=== PATIENT | female | born 1960 | race Caucasian/White ===

== ENCOUNTER 2020-01-30 10:19 | Outpatient (CLI) | payer OTHER, SELFPAY ==
[2020-01-30 11:03] LABS: Alanine Aminotransferase 32 U/L (4-35); Alkaline Phosphatase 85 U/L (38-126); Anion Gap 11.8 mmol/L (7-16); Aspartate Amino Transferase 28 U/L (14-36); Bilirubin,Total 0.5 mg/dL (0.2-1.3); Blood Urea Nitrogen 25 mg/dL (7-17); Calcium 9.1 mg/dL (8.4-10.2); Carbon Dioxide 27 mmol/L (22-30); Chloride 105 mmol/L (98-107); Cholesterol 167 mg/dL (0-200); Estimated Glomerular Filt Rate > 60; Glucose 123 mg/dL (65-105); HDL Direct 35 mg/dL; Potassium 3.8 mmol/L (3.4-5.0); Sodium 140 mmol/L (137-145); Triglycerides 132 mg/dL (<150)
[2020-01-30 11:13] LABS: LDL Cholesterol Direct 106 mg/dL
[2020-01-30 11:25] LABS: Hemoglobin A1C 5.7 % (<5.7)
== END 2020-01-30 10:20 | disposition home or self-care (01) ==
PROVIDERS: PCP Family Medicine Adolescent Medicine; Visit Provider Physician Assistant
DX: E11.9 Type 2 diabetes mellitus without complications (principal); I10 Essential (primary) hypertension; E78.1 Pure hyperglyceridemia
CPT/HCPCS: 36415; 80053; 80061; 83036

== ENCOUNTER 2020-03-15 02:17 | Outpatient (CLI) | payer OTHER, SELFPAY ==
[2020-03-15 17:02] LABS: SARS-CoV-2 RNA PCR Negative
== END 2020-03-15 02:18 | disposition home or self-care (01) ==
LOC: ANHCOVIDDT 02:17
PROVIDERS: PCP Family Medicine Adolescent Medicine; Visit Provider Internal Medicine Gastroenterology
DX: Z01.812 Encounter for preprocedural laboratory examination (principal); Z20.828 Contact with and (suspected) exposure to other viral communicable diseases
CPT/HCPCS: 87635; C9803; U0003

== ENCOUNTER 2020-03-17 00:36 | Day surgery (SDC) | payer OTHER, SELFPAY ==
[2020-03-07 13:47] VITALS: BMI 39.5
[2020-03-17 07:54] VITALS: BP 137/82; PULSE 101; RESP 16; TEMP 36.7; O2SAT 101; BMI 38.8
[2020-03-17 08:08] LABS: Glucose Point of Care 114 (65-105)
[2020-03-17] MEDS: LACTATED RINGERS 1,000 ML 150 ML IV CONT (08:19)
--- NOTE | 2020-03-17 08:21 | WPDANESEPPF ---
Anes - Initial Pre Proc Eval Procedure: Operation Date: 03/17/20 08:30 Proposed Procedures p Screening Colonoscopy - Aftab Jiang DO Date/Time: 03/17/20 08:21 Surgeon: Aftab Jiang DO Pre Op Diagnosis: Neoplasm Screening Patient Data Age: 60 Gender: F Height: 1.63 m Weight: 102.7 kg Last Vital Signs Temp 36.7 C 03/17/20 07:54 Pulse 101 H 03/17/20 07:54 Resp 16 03/17/20 07:54 BP 137/82 03/17/20 07:54 Pulse Ox 101 H 03/17/20 07:54 Allergies Allergy/AdvReac Type Severity Reaction Status Date / Time No Known Allergies Allergy Unverified 03/17/20 07:47 Home Medications Medication Instructions Recorded Confirmed Type lisinopril-hydrochlorothiazide 0.5 tablet PO DAILY 07/29/19 03/17/20 History metformin 500 mg PO TID 07/29/19 03/17/20 History anastrozole 1 mg PO DAILY 03/07/20 03/07/20 History simvastatin 10 mg PO HS 03/17/20 03/17/20 History Laboratory Tests 03/17/20 08:00 POC Capillary Glucose 114 mg/dl H mg/dl (65-105) Patient hx anesthesia problems: none Family hx anesthesia problems: none PMFSH Past Medical History Medical History (Updated 03/17/20 @ 08:23 by Nehemiah Shultz MD) Cancer Ovarian CA Diabetes Endometriosis HTN (hypertension) Hypercholesterolemia Obesity ROSENDA (obstructive sleep apnea) Family History Family History (Updated 05/06/14 @ 14:02 by DOCTOR UNKNOWN) Father Hypertension Mother Hypertension Other Family history of cardiovascular disease Social History Social History Smoking status: Never smoker Second hand tobacco smoke exposure: No Alcohol intake: current Substance use: never Substance use type: does not use Living arrangements: with family Additional living arrangements comments: Spouse Gender identity (if verbalized by the patient): Female Spiritual care concerns: No Anes - Eval Final PreProcedure Day of Procedure 03/17/20 08:21 Patient weight: obese Heart: regular rate and rhythm Lungs: clear to auscultation and normal air movement Airway: Mallampati scale class II Neurological: alert and oriented Last oral intake: >/= 8 hours ASA classification: III Emergent: no Anesthetic plan: proceed Anesthesia type and monitoring: general GIVS Informed Consent: The patient's anesthetic plan and its attendant risks and benefits were discussed with the patient/family/POA. Questions were solicited and answers provided to the satisfaction of the patient/family/POA.
--- NOTE | 2020-03-17 08:47 | PM.IMHP ---
H&P: HPI History of Present Illness Date/Time: 03/17/20 08:47 Chief complaint: Neoplasm Screening Narrative: Reason for visit is colonoscopy. Impression: Your very pleasant lady is here for screening colonoscopy. She has a history of colon polyps. History of ovarian cancer status post surgery, radiation therapy and chemotherapy. HTN. HLD. Diabetes mellitus. ROSENDA. Neuropathy. Recommendation: Colonoscopy. History: This very pleasant lady has a history of colon polyps. Review of systems essentially unremarkable. She is here for screening and surveillance colonoscopy. Physical examination: General: very pleasant patient in no acute distress. HEENT: Head was normocephalic sclerae is clear mouth without masses neck was supple. Heart: Rate rhythm regular without S3 or S4. Lungs: CTA. Abdomen: Soft with no guarding or rigidity. Bowel sounds were active. Neurologic: Cranial nerves 2 through 12 intact. No focal defects. No clonus. Musculoskeletal system: Revealed no joint tenderness or swelling no muscle atrophy. Extremities: Reveal no significant edema. Skin: Warm and dry with normal turgor. Mental status: intact. Patient is alert and oriented. Review of Systems Review of Systems: All systems reviewed & are unremarkable except as noted in HPI and below PMFSH Past Medical History Medical History (Updated 03/17/20 @ 08:23 by Nehemiah Shultz MD) Cancer Ovarian CA Diabetes Endometriosis HTN (hypertension) Hypercholesterolemia Obesity ROSENDA (obstructive sleep apnea) Family History Family History (Updated 05/06/14 @ 14:02 by DOCTOR UNKNOWN) Father Hypertension Mother Hypertension Other Family history of cardiovascular disease Social History Social History Smoking status: Never smoker Second hand tobacco smoke exposure: No Alcohol intake: current Substance use: never Substance use type: does not use Living arrangements: with family Additional living arrangements comments: Spouse Gender identity (if verbalized by the patient): Female Spiritual care concerns: No Meds Home Medications and Allergies Home Medications Medication Instructions Recorded Confirmed Type lisinopril-hydrochlorothiazide 0.5 tablet PO DAILY 07/29/19 03/17/20 History metformin 500 mg PO TID 07/29/19 03/17/20 History anastrozole 1 mg PO DAILY 03/07/20 03/07/20 History simvastatin 10 mg PO HS 03/17/20 03/17/20 History Allergies Allergy/AdvReac Type Severity Reaction Status Date / Time No Known Allergies Allergy Unverified 03/17/20 07:47 Vital Signs Vital Signs - 24 hr 03/17/20 07:54 Temperature 36.7 C Pulse Rate 101 H Respiratory Rate 16 Blood Pressure 137/82 Pulse Oximetry 101 H
[2020-03-17 09:22] VITALS: BP 117/72; PULSE 85; RESP 16; O2SAT 96
[2020-03-17 09:32] VITALS: BP 113/78; PULSE 75; RESP 18; O2SAT 97
[2020-03-17 09:42] VITALS: BP 115/80; PULSE 77; RESP 20; O2SAT 98
== END 2020-03-17 09:53 | disposition home or self-care (01) ==
PROVIDERS: PCP Family Medicine Adolescent Medicine; Visit Provider Internal Medicine Gastroenterology
PROC: 0DJD8ZZ Inspection of Lower Intestinal Tract, Via Natural or Artificial Opening Endoscopic (ICD-10-PCS; CPT 45378; principal; 2020-03-17 08:30)
DX: Z12.11 Encounter for screening for malignant neoplasm of colon (principal); K64.8 Other hemorrhoids; Z86.010 Personal history of colon polyps; I10 Essential (primary) hypertension; E78.00 Pure hypercholesterolemia, unspecified; E11.9 Type 2 diabetes mellitus without complications; G47.33 Obstructive sleep apnea (adult) (pediatric); Z85.43 Personal history of malignant neoplasm of ovary; E66.9 Obesity, unspecified; Z68.38 Body mass index [BMI] 38.0-38.9, adult; Z79.84 Long term (current) use of oral hypoglycemic drugs
CPT/HCPCS: 45378; J2704; J7120

== ENCOUNTER 2020-05-18 16:43 | Outpatient (CLI) | payer OTHER, SELFPAY ==
[2020-05-18 17:16] LABS: Alanine Aminotransferase 51 U/L (4-35); Cholesterol 183 mg/dL (0-200); HDL Direct 37 mg/dL; Triglycerides 210 mg/dL (<150)
[2020-05-18 17:27] LABS: LDL Cholesterol Direct 125 mg/dL
== END 2020-05-18 16:44 | disposition home or self-care (01) ==
LOC: ANHLAB 16:45
PROVIDERS: PCP Family Medicine Adolescent Medicine; Visit Provider Physician Assistant
DX: E11.9 Type 2 diabetes mellitus without complications (principal); Z79.899 Other long term (current) drug therapy
CPT/HCPCS: 36415; 80061; 84460

== ENCOUNTER 2020-06-22 15:07 | Outpatient (CLI) | payer OTHER, SELFPAY ==
--- NOTE | ~2020-06-22 | MM_ITS ---
EXAMINATION: MM screening [facility] HISTORY: Screening mammogram TECHNIQUE: Craniocaudal and mediolateral oblique 3-D tomosynthesis images were obtained and synthetic 2-D images were generated. CAD analysis was submitted and interpreted. COMPARISON: 05/21/2019, 06/13/2017, 07/06/2015 BREAST PARENCHYMAL COMPOSITION: The breasts are heterogeneously dense, which may obscure small masses . FINDINGS: There is no evidence of suspicious mass, calcification, or architectural distortion to sugg est malignancy in either breast. There has been no suspicious interval change. IMPRESSION: 1. No mammographic evidence of malignancy. 2. Recommend routine screening mammography in one year. BI-RADS Category 1: Negative Reviewed, dictated and finalized at location A. AISAL ANALYST
== END 2020-06-22 15:08 | disposition home or self-care (01) ==
LOC: ANHIMG 15:09
PROVIDERS: PCP Family Medicine Adolescent Medicine; Visit Provider Physician Assistant
DX: Z12.31 Encounter for screening mammogram for malignant neoplasm of breast (principal)
CPT/HCPCS: 77063; 77067

== ENCOUNTER 2020-09-15 15:41 | Outpatient (RCR) | payer OTHER, SELFPAY ==
[2020-09-18 03:22] LABS: CA-125 9 U/mL (<35)
== END 2020-12-14 23:59 | disposition home or self-care (01) ==
LOC: ANHLAB 15:41
PROVIDERS: PCP Family Medicine Adolescent Medicine
DX: C56.9 Malignant neoplasm of unspecified ovary (principal)
CPT/HCPCS: 36415; 86304

== ENCOUNTER 2021-01-07 09:20 | Outpatient (RCR) | payer OTHER, SELFPAY ==
[2021-01-10 21:12] LABS: CA-125 10 U/mL (<35)
== END 2021-04-07 23:59 | disposition home or self-care (01) ==
LOC: ANHLAB 09:20
PROVIDERS: PCP Family Medicine Adolescent Medicine
DX: C56.9 Malignant neoplasm of unspecified ovary (principal)
CPT/HCPCS: 36415; 86304

== ENCOUNTER 2021-04-08 09:24 | Outpatient (CLI) | payer OTHER, SELFPAY ==
[2021-04-08 10:45] LABS: Hemoglobin A1C 6.9 % (<5.7)
[2021-04-08 10:46] LABS: Alanine Aminotransferase 64 U/L (4-35); Albumin Level 4.4 g/dL (3.5-5.1); Alkaline Phosphatase 66 U/L (38-126); Anion Gap 8 mmol/L (8-16); Aspartate Amino Transferase 54 U/L (14-36); Bilirubin,Total 0.6 mg/dL (0.2-1.3); Blood Urea Nitrogen 23 mg/dL (7-17); Carbon Dioxide 29 mmol/L (22-30); Chloride 104 mmol/L (98-107); Cholesterol 129 mg/dL (0-200); Estimated Glomerular Filt Rate > 60; Glucose 141 mg/dL (65-110); HDL Direct 37 mg/dL; Potassium 4.3 mmol/L (3.4-5.0); Sodium 141 mmol/L (137-145); Triglycerides 186 mg/dL (<150)
[2021-04-08 10:48] LABS: LDL Cholesterol Direct 67 mg/dL
== END 2021-04-08 09:25 | disposition home or self-care (01) ==
PROVIDERS: PCP Family Medicine Adolescent Medicine; Visit Provider Physician Assistant
DX: E11.9 Type 2 diabetes mellitus without complications (principal); I10 Essential (primary) hypertension
CPT/HCPCS: 36415; 80053; 80061; 83036

== ENCOUNTER 2021-12-06 19:16 | Observation (INO) | payer OTHER, SELFPAY ==
--- NOTE | ~2021-12-06 | XR_ITS ---
EXAMINATION: XR retrograde pyelo w/stent RT DATE: 12/07/2021 12:43 INDICATION: Right internal ureteral stent placement TECHNIQUE: Fluoroscopic images from a right internal ureteral stent placement are submitted for carmela courtney 43 seconds of fluoroscopy time. 6 fluoroscopic images FINDINGS: There is a right double-J internal ureteral stent projecting in expected position, with proximal [place] loop at the level of the renal pelvis and distal loop in the pelvis within the bladder lumen. IMPRESSION: 1. Right internal ureteral stent placement. Please refer to real-time procedural findings for aimee verduzco. Reviewed, dictated and finalized at location A. IMPRESSION: 1. Right internal ureteral stent placement. Please refer to real-time procedu ral findings for details.
--- NOTE | ~2021-12-06 | XR_ITS ---
XR abdomen/kub 1V 12/07/2021 00:02 Indication: Urolithiasis Procedure: KUB Comparison: CT dated 12/06/2021 Findings: There is a calcification in the right pelvis, suspicious for distal ureteral stone. There a re cholecystectomy clips. There are multiple calcifications adjacent to the cholecystectomy clips, mo st likely dropped stones. Bowel gas pattern is nonobstructive. No acute osseous abnormality. There ar e surgical clips in the pelvis as well. Lung bases unremarkable. Impression: 1: Probable distal right ureteral stone. 2: Probable dropped stones adjacent to cholecystectomy clips. Reviewed, dictated and finalized at location A. Impression: 1: Probable distal right ureteral stone. 2: Probable dropped stones adjacent to cholecystectomy clips.
--- NOTE | ~2021-12-06 | CT_ITS ---
EXAMINATION: CT abdomen pelvis wo con DATE: 12/06/2021 21:14 INDICATION: Flank pain and hematuria TECHNIQUE: Computed tomography (CT) of the abdomen and pelvis was performed without intravenous contr ast. The dose-length product (DLP) was 1275.66 mGy-cm. Automated exposure control and iterative recon struction technique were employed. COMPARISON: 05/07/2019 FINDINGS: Minimal dependent atelectasis is present in the lung bases. The heart size is normal. There is a small sliding hiatal hernia. The liver is diffusely low in attenuation when compared with the s pleen, consistent with hepatic steatosis. There are chronic cysts of the spleen. The gallbladder is s urgically absent. The pancreas and adrenal glands are normal. There are multiple stones of the right distal ureter which measure up to 7 mm. There is moderate right hydroureteronephrosis. There are cyst s of the kidneys. No pathologically enlarged abdominal or pelvic lymph nodes are identified. There is no free intraperitoneal gas or evidence of bowel obstruction. A small bowel surgical anastomosis is noted in the left mid abdomen. There is mild lumbar spondylosis. There has been interval resection of the previously described abdominal wall masses. IMPRESSION: 1. Multiple stones of the right distal ureter causing moderate right hydroureteronephrosis. 2. Diffuse hepatic steatosis. Reviewed, dictated and finalized at location F. IMPRESSION: 1. Multiple stones of the right distal ureter causing moderate right hydrourete ronephrosis. 2. Diffuse hepatic steatosis.
[2021-12-06 19:26] VITALS: BP 146/97; PULSE 93; RESP 20; TEMP 36.1; O2SAT 98
[2021-12-06 20:04] LABS: Basophils Percent Auto 0.3 % (0.2-1.2); Hemoglobin 14.2 g/dL (12.0-15.0); Immature Granulocyte Absolute 0.04 K/mm3 (0.00-0.031); Immature Granulocyte Percent A 0.5 % (0-0.5); Lymphocytes Absolute Auto 0.75 K/mm3 (0.9-3.2); Lymphocytes Percent Auto 9.9 % (18.3-44.2); Mean Corpuscular HGB Conc 32.3 g/dl (32-36); Mean Corpuscular Hemoglobin 28.6 pg (26-34); Mean Corpuscular Volume 88.5 fl (80-100); Mean Platelet Volume 9.9 fl (7.4-10.4); Monocytes Absolute Auto 0.2 K/mm3 (0.1-0.6); Monocytes Percent Auto 2.1 % (2.6-8.5); Neutrophils Absolute Auto 6.6 K/mm3 (1.3-6.7); Neutrophils Percent Auto 87.2 % (45.5-73.1); Platelet Count Result 175 k/mm3 (150-375); Red Blood Count 4.97 M/mm3 (4.2-5.4); Red Cell Distribution Width 13.3 % (11.5-14.5); White Blood Count 7.6 K/mm3 (4.5-10.0)
[2021-12-06 20:17] LABS: Alanine Aminotransferase 91 U/L (6-35); Albumin Level 4.6 g/dL (3.5-5.1); Alkaline Phosphatase 96 U/L (38-126); Anion Gap 9 mmol/L (8-16); Aspartate Amino Transferase 94 U/L (14-36); Bilirubin,Total 0.8 mg/dL (0.2-1.3); Blood Urea Nitrogen 27 mg/dL (7-17); Calcium 9.4 mg/dL (8.4-10.2); Carbon Dioxide 27 mmol/L (22-30); Chloride 102 mmol/L (98-107); Estimated CRCL calculation 40 ml/min; Estimated Glomerular Filt Rate 51; Glucose 236 mg/dL (65-110); Potassium 4.3 mmol/L (3.4-5.0); Sodium 138 mmol/L (137-145)
--- NOTE | 2021-12-06 21:06 | ED.FEMALEGU ---
HPI - Female Genitourinary General Chief complaint: Urogenital-Female Stated complaint: flank pain Time Seen by Provider: 12/06/21 20:52 Source: patient Mode of arrival: ambulatory Limitations: no limitations History of Present Illness HPI Narrative: This is a 61 year old female that presents to the ER for right flank pain noted today. Associated with nausea, vomiting and hematuria. Does report some urinary discomfort. Denies fevers. Related Data Home Medications Medication Instructions Recorded Confirmed lisinopril 20 0.5 tablet PO DAILY 07/29/19 03/17/20 mg-hydrochlorothiazide 12.5 mg tablet metformin 500 mg tablet 500 mg PO TID 07/29/19 03/17/20 anastrozole 1 mg tablet 1 mg PO DAILY 03/07/20 03/07/20 simvastatin 10 mg tablet 10 mg PO HS 03/17/20 03/17/20 Allergies Allergy/AdvReac Type Severity Reaction Status Date / Time No Known Allergies Allergy Unverified 03/17/20 07:47 Review of Systems Review of Systems: CONSTITUTIONAL: Denies fever GASTROINTESTINAL: Reports abdominal pain, nausea, vomiting GENITOURINARY: Reports dysuria and hematuria. All systems reviewed & are unremarkable except as noted in HPI and below PMFSH Past Medical History Medical History (Updated 12/07/21 @ 00:10 by Noris Dumont PA-C) Cancer Ovarian CA Diabetes Endometriosis HTN (hypertension) Hypercholesterolemia Obesity ROSENDA (obstructive sleep apnea) Family History Family History (Updated 05/06/14 @ 14:02 by DOCTOR UNKNOWN) Father Hypertension Mother Hypertension Other Family history of cardiovascular disease Social History Social History Smoking status: Never smoker Second hand tobacco smoke exposure: No Alcohol intake: current Substance use: never Substance use type: does not use Additional living arrangements comments: Spouse Gender identity (if verbalized by the patient): Female Spiritual care concerns: No Exam Narrative: GENERAL: Well-appearing, well-nourished, and in no acute distress. HEAD: Normocephalic, atraumatic. EYES: EOMI. CHEST: Clear to auscultation. No respiratory distress. No wheezes rales or rhonchi HEART: Regular rate and rhythm. No murmur heard. Normal peripheral pulses. ABDOMEN: Soft, nontender, nondistended, normal active bowel sounds. No CVA tenderness EXTREMITIES: Normal range of motion. No edema. SKIN: Warm, dry, no rash. NEURO: No focal deficits. Alert and oriented x3. PSYCH: Normal mood and affect Course Consultations Consultation #1: Spoke with Dr. Cary about patient and workup. Recommends admission for further evaluation and management. Date: 12/06/21 Time: 11:45 Vital Signs Vital signs: Vital Signs Temperature 97 F L 12/06/21 19:26 Pulse Rate 93 12/06/21 19:26 Respiratory Rate 20 12/06/21 19:26 Blood Pressure 146/97 H 12/06/21 19:26 Pulse Oximetry 98 12/06/21 19:26 Oxygen Delivery Room Air 12/06/21 19:26 Temperature 97 F L 12/06/21 19:26 Pulse Rate 71 12/06/21 22:01 Respiratory Rate 18 12/06/21 22:01 Blood Pressure 134/73 12/06/21 22:01 Pulse Oximetry 94 12/06/21 22:48 Oxygen Delivery Nasal Cannula 12/06/21 22:48 Oxygen Flow Rate 2 12/06/21 22:48 MDM - Female Genitourinary MDM Narrative Medical decision making narrative: Patient presents to the emergency department for right flank pain present today. She is afebrile and nontoxic-appearing. Her vitals are stable. CBC without leukocytosis. Metabolic panel with mild elevation in creatinine to 1.1. UA is nitrate positive with 11-20 red blood cells, but no white blood cells. This will be sent for culture. Patient started on Rocephin. Lactic acid is normal. CT scan of the abdomen and pelvis shows multiple stones in the distal right ureter. Spoke with Dr. Cary about patient and workup. Recommends admission for further evaluation and management. Patient did have oxygen desaturation into the low 90s after receiving IV morphine.
[2021-12-06 21:55] LABS: Appearance Urine Cloudy (Clear); Bilirubin Urine 1+ (Negative); Blood Urine 3+ (Negative); Color Urine Yellow (Yellow); Glucose Urine UA 2+ mg/dL (Negative); Ketones Urine 1+ mg/dL (Negative); Leukocyte Esterase Ur Trace LEU/UL (Negative); Nitrate Urine Positive (Negative); Protein Urine 2+ mg/dL (Negative); Specific Grav Ur >= 1.030 (1.001-1.035); pH Urine 5.5 (5.0-9.0)
[2021-12-06 22:01] VITALS: BP 134/73; PULSE 71; RESP 18; O2SAT 95
[2021-12-06 22:01] LABS: Add Urine Microscopic? YES
[2021-12-06] MEDS: ONDANSETRON INJ 4 MG/2 ML VIAL IV PUSH (22:02)
[2021-12-06 22:03] LABS: Squamous Epithelial Cell Urine Few /hpf (Few); WBC Urine 0-3 /hpf (0-3)
[2021-12-06] MEDS: MORPHINE SULFATE (*CRX) 4 MG/ML INJ IV PUSH (22:03)
[2021-12-06 22:04] LABS: Uric Acid Crystals Urine Present /hpf
[2021-12-06 22:05] LABS: Bacteria Urine 2+ /hpf
[2021-12-06] MEDS: SODIUM CHLORIDE 0.9% IV 500 ML 999 ML IV CONT (22:12)
[2021-12-06 22:35] LABS: Lactic Acid Reflex 1.5 mmol/L (0.7-2.0)
[2021-12-06 22:48] VITALS: O2SAT 94
[2021-12-07] VITALS (11 sets, daily range): BP systolic 120–152; BP diastolic 70–95; PULSE 71–92; RESP 14–18; TEMP 36.2–36.7; O2SAT 93–100; BMI 40.2; BMI 39.6
[2021-12-07 01:33] LABS: SARS-CoV-2 RNA PCR Negative
--- NOTE | 2021-12-07 02:02 | ADMGEN ---
This patient, Evelina Shields, was admitted to [facility] Surg Room 331-01. Patient/family oriented to hospital policies and general routines including ID bracelet, bed and alarms, visiting hours, pain management, procedures, bathroom and other care routines, personal items, smoking policy, room service/diet, and visiting hours. Information on how to activate the Rapid Response Team has been discussed. Patient/Family are encouraged to report perceived risks to care and to ask questions if they do not understand what they are told or what they should do.
[2021-12-07] MEDS: SODIUM CHLORIDE 0.9% IV 1,000 ML 125 ML IV CONT ×2 (04:02→09:24)
[2021-12-07 06:53] LABS: Basophils Percent Auto 0.3 % (0.2-1.2); Eosinophils Percent Auto 0.2 % (0-4.4); Hemoglobin 13.8 g/dL (12.0-15.0); Immature Granulocyte Absolute 0.05 K/mm3 (0.00-0.031); Immature Granulocyte Percent A 0.5 % (0-0.5); Lymphocytes Percent Auto 15.9 % (18.3-44.2); Mean Corpuscular HGB Conc 32.9 g/dl (32-36); Mean Corpuscular Hemoglobin 29.1 pg (26-34); Mean Corpuscular Volume 88.6 fl (80-100); Mean Platelet Volume 10.3 fl (7.4-10.4); Monocytes Absolute Auto 0.8 K/mm3 (0.1-0.6); Monocytes Percent Auto 7.7 % (2.6-8.5); Neutrophils Absolute Auto 7.6 K/mm3 (1.3-6.7); Neutrophils Percent Auto 75.4 % (45.5-73.1); Platelet Count Result 191 k/mm3 (150-375); Red Blood Count 4.74 M/mm3 (4.2-5.4); Red Cell Distribution Width 13.3 % (11.5-14.5); White Blood Count 10.1 K/mm3 (4.5-10.0)
[2021-12-07 07:07] LABS: Anion Gap 9 mmol/L (8-16); Blood Urea Nitrogen 31 mg/dL (7-17); Calcium 8.8 mg/dL (8.4-10.2); Carbon Dioxide 28 mmol/L (22-30); Chloride 100 mmol/L (98-107); Estimated CRCL calculation 47 ml/min; Estimated Glomerular Filt Rate 42; Glucose 196 mg/dL (65-110); Sodium 137 mmol/L (137-145)
--- NOTE | 2021-12-07 07:13 | PM.IMHP ---
H&P: HPI History of Present Illness Date/Time: 12/07/21 07:13 Chief Complaint: Right flank pain Narrative: 61-year-old without significant urological history remote history of urolithiasis who presents to the ER with acute right flank pain radiating to right lower quadrant. This was associated nausea vomiting but no gross hematuria. She denies fevers chills. CT scan in the ER reveals several obstructing stones in her distal right ureter. She is admitted for hydration and analgesics and we will make arrangements for endoscopic stone extraction. She is aware the risks procedure including, but not limited to, adverse cardiopulmonary events, ureteral injury, need for stent placement and possible residual fragments. Review of Systems Cardiovascular: Cardiovascular: Denies chest pain, Denies lightheadedness, Denies palpitations and Denies dyspnea Respiratory: Respiratory: Denies dyspnea Gastrointestinal: Gastrointestinal: Denies diarrhea, Denies nausea and Denies vomiting Genitourinary: Genitourinary: Denies hematuria and Denies dysuria Endocrine: Endocrine: Denies palpitations FOR[facility]LY [facility], [facility] Past Medical History Medical History Cancer Ovarian CA Diabetes Endometriosis HTN (hypertension) Hypercholesterolemia Obesity ROSENDA (obstructive sleep apnea) Family History Family History Father Hypertension Also, father was diagnosed with skin ca last year. Mother Hypertension Other Family history of cardiovascular disease Social History Social History Smoking status: Never smoker Second hand tobacco smoke exposure: No Alcohol intake: current Substance use: never Substance use type: does not use Additional living arrangements comments: Spouse Gender identity (if verbalized by the patient): Female Spiritual care concerns: No Meds Home Medications and Allergies Home Medications Medication Instructions Recorded Confirmed Type lisinopril 20 0.5 tablet PO DAILY 07/29/19 12/07/21 History mg-hydrochlorothiazide 12.5 mg tablet metformin 500 mg tablet 500 mg PO TID 07/29/19 12/07/21 History anastrozole 1 mg tablet 1 mg PO DAILY 03/07/20 12/07/21 History simvastatin 10 mg tablet 10 mg PO HS 03/17/20 12/07/21 History Allergies Allergy/AdvReac Type Severity Reaction Status Date / Time No Known Allergies Allergy Unverified 03/17/20 07:47 Vital Signs Vital Signs - 24 hr 12/06/21 19:26 12/06/21 22:01 12/06/21 22:48 Temperature 97 F L Pulse Rate 93 71 Respiratory Rate 20 18 Blood Pressure 146/97 H 134/73 Pulse Oximetry 98 95 94 Oxygen Delivery Room Air Nasal Cannula Oxygen Flow Rate 2 12/07/21 01:33 12/07/21 02:26 12/07/21 02:59 Temperature 97.8 F Pulse Rate 77 77 76 Respiratory Rate 16 16 18 Blood Pressure 143/86 H 143/86 H 120/73 Pulse Oximetry 97 97 100 Oxygen Delivery Oxygen Flow Rate 12/07/21 05:48 Temperature 97.1 F L Pulse Rate 74 Respiratory Rate 18 Blood Pressure 120/70 Pulse Oximetry 100 Oxygen Delivery Oxygen Flow Rate Exam Const: General: no acute distress Resp: Effort & Inspection: normal respiratory effort GI: Inspection: non-distended GI Palp: No abdominal tenderness and No Guarding due to palpation present (GI) Auscultation: normal bowel sounds H&P: Results Labs Labs: Short CBC 12/06/21 12/07/21 Range/Units 19:37 05:58 WBC 7.6 10.1 H (4.5-10.0) K/mm3 Hgb 14.2 13.8 (12.0-15.0) g/dL Hct 44.0 42.0 (37.0-47.0) % Plt Count 175 191 (150-375) k/mm3 BMP 12/06/21 12/07/21 19:37 05:58 Sodium 138 137 Potassium 4.3 4.0 Chloride 102 100 Carbon Dioxide 27 28 BUN 27 H 31 H Creatinine 1.10 H 1.30 H Glucose 236 H 196 H Calcium 9.4 8.8 Liver Function 12/06/21 Range/Units 19:37 Total Bilirubin 0.8 (0.
--- NOTE | 2021-12-07 07:15 | WPDHPUPDATE1 ---
History and Physical Update Update Date/Time: 12/07/21 07:15 History and Physical has been reviewed, including an updated exam of the patient. There are NO changes in the patient's condition. Risks, benefits, and alternatives have been discussed and questions answered. Patient agrees to proceed with procedure.
[2021-12-07 08:24] LABS: Glucose Point of Care 213 mg/dl (65-105)
--- NOTE | 2021-12-07 09:51 | PCCCNOTE ---
On 12/07/21, the student, [Erna Segovia], provided care and completed [facility] documentation on this patient. I have reviewed the student's documentation and agree with the findings.
--- NOTE | 2021-12-07 11:43 | WPDANESEPP ---
Anes - Eval Pre Procedure Procedure: Operation Date: 12/07/21 12:45 Proposed Procedures p Cystoscopy, Right Ureteroscopy, Possible Right Retrograde Pyelogram, Possible Right Stone Extraction, Possible Right Stent Placement, Possible Holmium Laser Procedure - Enrique Cary MD Date/Time: 12/07/21 11:43 Pre Op Diagnosis: Ureterolithiasis Patient Data Age: 61 Gender: F Height: 1.6 m Weight: 101.4 kg Last Vital Signs Temp 36.2 C L 12/07/21 05:48 Pulse 74 12/07/21 05:48 Resp 18 12/07/21 05:48 BP 120/70 12/07/21 05:48 Pulse Ox 100 12/07/21 05:48 O2 Del Method Nasal Cannula 12/06/21 22:48 O2 Flow Rate 2 12/06/21 22:48 Allergies Allergy/AdvReac Type Severity Reaction Status Date / Time No Known Allergies Allergy Unverified 03/17/20 07:47 Home Medications Medication Instructions Recorded Confirmed Type lisinopril 20 0.5 tablet PO DAILY 07/29/19 12/07/21 History mg-hydrochlorothiazide 12.5 mg tablet metformin 500 mg tablet 500 mg PO TID 07/29/19 12/07/21 History anastrozole 1 mg tablet 1 mg PO DAILY 03/07/20 12/07/21 History simvastatin 10 mg tablet 10 mg PO HS 03/17/20 12/07/21 History Laboratory Tests 12/06/21 12/06/21 12/06/21 19:37 19:37 21:42 WBC 7.6 K/mm3 K/mm3 (4.5-10.0) RBC 4.97 M/mm3 M/mm3 (4.2-5.4) Hgb 14.2 g/dL g/dL (12.0-15.0) Hct 44.0 % % (37.0-47.0) MCV 88.5 fl fl (80-100) MCH 28.6 pg pg (26-34) MCHC 32.3 g/dl g/dl (32-36) RDW 13.3 % % (11.5-14.5) Plt Count 175 k/mm3 k/mm3 (150-375) MPV 9.9 fl fl (7.4-10.4) Immature Gran % (Auto) 0.5 % % (0-0.5) Neut % (Auto) 87.2 % H % (45.5-73.1) Lymph % (Auto) 9.9 % L % (18.3-44.2) [place] % (Auto) 2.1 % L % (2.6-8.5) Eos % (Auto) 0.0 % % (0-4.4) Baso % (Auto) 0.3 % % (0.2-1.2) Lymph # (Auto) 0.75 K/mm3 L K/mm3 (0.9-3.2) [place] # (Auto) 0.2 K/mm3 K/mm3 (0.1-0.6) Eos # (Auto) 0.0 K/mm3 K/mm3 (0-0.3) Baso # (Auto) 0.0 K/mm3 K/mm3 (0.0-0.1) Abs Immat Gran (auto) 0.04 K/mm3 H K/mm3 (0.00-0.031) Absolute Neuts (auto) 6.6 K/mm3 K/mm3 (1.3-6.7) Absolute Nucleated RBC 0.0 K/mm3 K/mm3 (0.0-0.012) Nucleated RBC % 0.0 % % (0.0-0.2) Sodium 138 mmol/L mmol/L (137-145) Potassium 4.3 mmol/L mmol/L (3.4-5.0) Chloride 102 mmol/L mmol/L (98-107) Carbon Dioxide 27 mmol/L mmol/L (22-30) Anion Gap 9 mmol/L mmol/L (8-16) BUN 27 mg/dL H mg/dL (7-17) Creatinine 1.10 mg/dL H mg/dL (0.7-1.0) Estim Creat Clear Calc 40 ml/min ml/min Estimated GFR 51 L (59 - ) Glucose 236 mg/dL H mg/dL (65-110) POC Capillary Glucose Lactic Acid Calcium 9.4 mg/dL mg/dL (8.4-10.2) Total Bilirubin 0.8 mg/dL mg/dL (0.2-1.3) AST 94 U/L H U/L (14-36) ALT 91 U/L H U/L (6-35) Alkaline Phosphatase 96 U/L U/L (38-126) Total Protein 8.0 g/dL g/dL (6.3-8.2) Albumin 4.6 g/dL g/dL (3.5-5.1) Urine Color Yellow (Yellow) Urine Appearance Cloudy H (Clear) Urine pH 5.5 (5.0-9.0) Ur Specific [place] >= 1.030 (1.001-1.035) Urine Protein 2+ mg/dL H mg/dL (Negative) Urine Glucose (UA) 2+ mg/dL H mg/dL (Negative) Urine Ketones 1+ mg/dL H mg/dL (Negative) Ur Blood (Man) 3+ H (Negative) Urine Nitrate Positive H (Negative) Urine Bilirubin 1+ H (Negative) Urine Urobilinogen 1.0 mg/dL mg/dL (<2.0) Leukocyte Esterase Rfl Trace TEDDY/UL H TEDDY/UL (Negative) Urine RBC 11-20 /hpf H /hpf (0-2) Urine WBC 0-3 /hpf /hpf (0-3) U
[2021-12-07] MEDS: LACTATED RINGERS 1,000 ML 30 ML IV CONT (11:45)
--- NOTE | 2021-12-07 11:49 | P.PNAN_ITS ---
Anes - Eval Final PreProcedure Day of Procedure 12/07/21 11:49 Patient weight: obese Heart: regular rate and rhythm Lungs: clear to auscultation Airway: Mallampati scale class III Neurological: alert and oriented Last oral intake: >/= 8 hours ASA classification: III Emergent: no Anesthetic plan: proceed Anesthesia type and monitoring: general LMA and standard monitoring Results Review: All pre-operative results and documents have been reviewed as part of the pre- operative evaluation. Informed Consent: The patient's anesthetic plan and its attendant risks and benefits were discussed with the patient/family/POA. Questions were solicited and answers provided to the satisfaction of the patient/family/POA.
[2021-12-07] MEDS: LIDOCAINE HCL 2% GEL UROJET 10 ML PKG MUCOUS MEM (12:11)
--- NOTE | 2021-12-07 12:41 | W.PM.PROC2 ---
Procedure Note - Detailed Date of Procedure 12/07/21 Pre-op Diagnosis Right ureteral calculi Post-op Diagnosis Same Procedure Performed Cystoscopy, right ureteroscopy with laser lithotripsy, stone extraction and right ureteral stent placement Surgeon Enrique Cary MD Description of Procedure The patient was brought to the operative suite where she is prepped and draped in a routine sterile fashion while in the dorsal lithotomy position after the uneventful induction of a general LMA anesthetic. A 19F rigid cystoscope was placed in the bladder. The patient had no evidence of urethral stricture or bladder neck contracture. The bladder mucosa was endoscopically normal without hyperemia or neoplasm. There was a single, orthotopic ureteral orifice bilaterally. A 0.035 glidewire was advanced into the right renal pelvis under fluoroscopy. The distal ureter was dilated with an 8F/10F ureteral dilator. Ureteroscopy was undertaken with a short tapered semi-rigid ureteroscope. patient has 1 large and 2 moderate size right distal ureteral calculi. With ureteroscopy I fractured the stone into smaller pieces using a 273micron Holmium laser fiber with the Holmium laser. I was able to then extract the stone pieces using a 1.9F Escape, disposable stone basket. Due to the extent of this manipulation I did place a 4.8F double-J ureteral stent. The proximal coil of the stent was confirmed to be in the renal pelvis and the distal coil in the bladder. The patient's bladder was emptied and he was taken to the recovery room having tolerated this procedure well. Pathology Yes Complications No immediate complications Condition Stable
[2021-12-07 13:21] LABS: Glucose Point of Care 205 mg/dl (65-105)
--- NOTE | 2021-12-08 12:53 | PM.DS ---
DS: Admitting Diagnosis Discharge Date 12/07/21 Admitting Diagnosis Right ureteral calculi DS: Discharge Diagnosis Discharge Diagnosis (1) Ureterolithiasis: Code(s): N20.1 - Calculus of ureter Status: Acute DS: Summary Hospital Course Hospital Course: Patient without history of urolithiasis since to the ER with right flank pain and imaging showing 2-3 stones in her distal ureter. She was admitted overnight the following morning underwent ureteroscopy with laser lithotripsy and stone extraction. Later that day she was comfortable, prompting decision for discharge. She was tolerating regular diet. She was discharged with a stent with plans to follow-up next week for stent removal Time Spent with Patient Time attestation: Total time spent providing and/or coordinating discharge services: Exam Const: General: no acute distress Resp: Effort & Inspection: normal respiratory effort GI: Inspection: non-distended GI Palp: No abdominal tenderness and No Guarding due to palpation present (GI) Auscultation: normal bowel sounds DS: Data Data Completed and Pending Completed studies during hospitalization: Pending at discharge 12/07/21 12:17 Surgical [PTH] Routine Labs on day of discharge: Labs from last 24 hours 12/07/21 13:18 POC Capillary Glucose 205 H Preliminary micro results at discharge 12/06/21 21:42 Urine Culture - Preliminary Clean Catch Midstream Escherichia Coli Discharge Plan Discharge Attending physician on discharge: Enrique Cary Consulting providers: Noris Dumont ; Ronald Mojica ; Suraj Jha Discharging Clinician: Enrique Cary Anticipated Discharge Date/Time: 12/07/21 15:00 Patient Disposition: Home, Self-Care Activity: other - see discharge instructions Diet: other - see discharge instructions Discharge Instructions: 1) Activity: no driving or important decisions x24 hours. 2) Diet: resume your normal, pre-admission diet. 3) Follow-up: 7-14 days for stent removal / call for appointment ([phone]). Patient Instructions: Antibiotic Form Stand Alone Forms: General Discharge Information Follow-up/Referrals: Enrique Cary MD [Physician] - Discharge Medications: New hydrocodone-acetaminophen 5-325 mg tablet 1 - 2 tablet PO Q6H PRN (Reason: pain) Qty: 24 0RF cephalexin 500 mg capsule 500 mg PO Q8H Qty: 9 0RF Continued metformin 500 mg Tablet 500 mg PO TID lisinopril-hydrochlorothiazide 20-12.5 mg Tablet 0.5 tablet PO DAILY anastrozole 1 mg Tablet 1 mg PO DAILY simvastatin 10 mg Tablet 10 mg PO HS Date of admission: 12/06/21 23:36 Primary Care Provider: Frederick Estrada Admitting Provider: Enrique Cary Attending physician on admission: Enrique Cary Condition: Stable
== END 2021-12-07 16:49 | disposition home or self-care (01) ==
LOC: ANHED 12-07 00:10 → ANH3MEDSUR 12-07 01:16
PROVIDERS: Physician Assistant; Admitting Provider Urology; Emergency Provider Emergency Medicine; PCP Family Medicine Adolescent Medicine; Visit Provider Urology
PROC: (CPT 52352; principal; 2021-12-07 12:45)
DX: N20.1 Calculus of ureter (principal); E11.9 Type 2 diabetes mellitus without complications; I10 Essential (primary) hypertension; E78.5 Hyperlipidemia, unspecified; E66.9 Obesity, unspecified; Z68.39 Body mass index [BMI] 39.0-39.9, adult; G47.33 Obstructive sleep apnea (adult) (pediatric); Z85.43 Personal history of malignant neoplasm of ovary; Z20.822 Contact with and (suspected) exposure to COVID-19
CPT/HCPCS: 52356; 36415; 74018; 74176; 74420; 80048; 80053; 81001; 82365; 82948; 83605; 85025; 87077; 87086; 87186; 88300; 96361; 96365; 96374; 96375; 99285; A9270; C1769; C2617; C9803; G0378; J0696; J1100; J1885; J2250; J2270; J2405; J2704; J3010; J7030; J7040; J7120; U0003; U0005

== ENCOUNTER 2021-12-27 10:16 | Outpatient (CLI) | payer OTHER, SELFPAY ==
--- NOTE | ~2021-12-27 | XR_ITS ---
EXAM: XR abdomen/kub 1V DATE: 12/27/2021 10:34 HISTORY: RIGHT URETERAL STONE, NEW ONSET OF PAIN, F/U . COMPARISON: 12/06/2021, CT abdomen pelvis 12/06/2021. FINDINGS: Cholecystectomy clips. Adjacent rounded calcifications may reflect cystic duct stones versu s dropped stones. Clear lung bases. Normal bowel gas pattern. No organomegaly. No definite renal calc ification. Right pelvic calcifications likely represent phleboliths or other vascular calcification. Regional bones and soft tissues normal for age. IMPRESSION: No definite ureteral or renal stones detected. Consider CT abdomen and pelvis for further evaluation. Reviewed, dictated and finalized at location K.
== END 2021-12-27 10:17 | disposition home or self-care (01) ==
LOC: ANHIMG 10:19
PROVIDERS: PCP Family Medicine Adolescent Medicine; Visit Provider Urology
DX: N20.1 Calculus of ureter (principal)
CPT/HCPCS: 74018

== ENCOUNTER 2022-01-25 13:49 | Outpatient (CLI) | payer OTHER, SELFPAY ==
[2022-01-25 08:12] LABS: Hemoglobin A1C 8.1 % (<5.7)
[2022-01-25 08:14] LABS: Cholesterol 136 mg/dL (0-200); HDL Direct 18 mg/dL; Triglycerides 186 mg/dL (<150)
[2022-01-25 08:25] LABS: LDL Cholesterol Direct 76 mg/dL
[2022-01-25 19:06] LABS: Toxigenic C. Diff NEGATIVE (NEGATIVE)
== END 2022-01-25 13:50 | disposition home or self-care (01) ==
LOC: ANHLAB 13:50
PROVIDERS: PCP Family Medicine Adolescent Medicine; Visit Provider Physician Assistant
DX: E11.9 Type 2 diabetes mellitus without complications (principal); E78.00 Pure hypercholesterolemia, unspecified; I10 Essential (primary) hypertension; R19.7 Diarrhea, unspecified
CPT/HCPCS: 36415; 80061; 83036; 87045; 87427; 87493

== ENCOUNTER 2022-06-01 12:46 | Outpatient (CLI) | payer OTHER, SELFPAY ==
--- NOTE | ~2022-06-01 | CT_ITS ---
EXAMINATION: CT chest abdomen pelvis w con DATE: 06/01/2022 13:21 INDICATION: Endometrioid adenocarcinoma of right ovary TECHNIQUE: Computed tomography (CT) of the chest, abdomen, and pelvis was performed with 100 CC Omnip aque 350 intravenous contrast. Automated exposure control and iterative reconstruction technique were employed. Exam dose: 1252.91 mGy-cm total exam DLP. COMPARISON: 12/06/2021 CT abdomen pelvis 05/15/2019 MR abdomen 05/07/2019 PET/CT/CT scan CT abdomen pelvis FINDINGS: CHEST CT: The lungs are clear of infiltrate or consolidation. No pulmonary mass lesion is evident. No hilar or mediastinal mass lesion or lymphadenopathy. No thoracic aortic aneurysm or dissection. He art size is within normal limits. No pericardial or pleural effusion. ABDOMEN/PELVIS CT: There is diffuse hepatic steatosis. No hepatic space-occupying mass lesion. Status post cholecystectomy. No bile duct or pancreatic duct dilatation. No pancreatic calcification is detected. There is an approximately 9.9 x 12 mm hypoenhancing mass with attenuation of approximately 17 Hounsfi eld units at the anterior aspect of the pancreatic head. Differential diagnosis includes serous cysta denoma, mucinous cystic neoplasm, IPMN, cystic pancreatic neuroendocrine tumor. Multiple splenic cystic lesions are again noted including one new approximately 8.6 mm cystic lesion. Normal morphology of the adrenal glands. Scattered bilateral renal cysts, the largest situated on the left, measuring up to 1.8 cm. No urinary tract calculus or hydroureteronephrosis. There is moderate diffuse thickening of the urina ry bladder wall; cystitis is not excluded. Status post hysterectomy. Normal caliber of the abdominal aorta. No intraperitoneal or retroperitoneal or pelvic mass lesion or adenopathy or ascites. Again noted is a surgical anastomosis of the small bowel in the left lower quadrant with mild proxima l dilatation fluid level. Scattered small bowel air-fluid levels. There is liquid stool in rectum and colon with air-fluid leve ls. Findings suggest enterocolitis. No bowel obstruction or intraperitoneal free air. No suspicious osteolytic or osteoblastic lesions of the chest, abdomen or pelvis. IMPRESSION: Status post hysterectomy; no pelvic mass or adenopathy 9.9 x 12 mm cystic lesion of the anterior aspect of pancreatic head; differential diagnosis given abo ve Multiple splenic cystic lesions including one new 8.6 mm splenic cyst Scattered bilateral renal cysts measuring up to 1.8 cm Scattered small bowel air-fluid levels and liquid stool in rectum and colon with air-fluid levels, scott ggesting enterocolitis; no bowel obstruction or free air Hepatic steatosis Status post cholecystectomy Reviewed, dictated and finalized at [facility]. Reviewed, dictated and finalized at location B. AL SCIENTIST IMPRESSION: Status post hysterectomy; no pelvic mass or adenopathy 9.9 x 12 mm cystic lesion of the anterior aspect of pancreatic head; differenti al diagnosis given above Multiple splenic cystic lesions including one new 8.6 mm splenic cyst Scattered bilateral renal cysts measuring up to 1.8 cm Scattered small bowel air-fluid levels and liquid stool in rectum and colon wit h air-fluid levels, suggesting enterocolitis; no bowel obstruction or free air Hepatic steatosis Status post cholecystectomy
[2022-06-01 13:13] LABS: Estimated Glomerular Filt Rate 38
== END 2022-06-01 12:47 | disposition home or self-care (01) ==
LOC: ANHIMG 12:51
PROVIDERS: PCP Family Medicine Adolescent Medicine; Visit Provider Obstetrics & Gynecology Gynecology
DX: C56.1 Malignant neoplasm of right ovary (principal); Z90.710 Acquired absence of both cervix and uterus; K86.2 Cyst of pancreas; D73.4 Cyst of spleen; N28.1 Cyst of kidney, acquired; K76.0 Fatty (change of) liver, not elsewhere classified; Z90.49 Acquired absence of other specified parts of digestive tract
CPT/HCPCS: 71260; 74177; Q9967

== ENCOUNTER 2022-06-07 14:55 | Outpatient (CLI) | payer OTHER, SELFPAY ==
[2022-06-10 00:39] LABS: CA-125 15 U/mL (<35)
== END 2022-06-07 14:56 | disposition home or self-care (01) ==
LOC: ANHLAB 14:59
PROVIDERS: PCP Family Medicine Adolescent Medicine; Visit Provider Obstetrics & Gynecology Gynecology
DX: C56.1 Malignant neoplasm of right ovary (principal)
CPT/HCPCS: 36415; 86304

== ENCOUNTER 2022-06-21 15:51 | Outpatient (CLI) | payer OTHER, SELFPAY ==
--- NOTE | ~2022-06-21 | MR_ITS ---
EXAMINATION: MR MRCP wo/w con/w 3D wo ind DATE: 06/21/2022 17:00 INDICATION: Malignant neoplasm of the ovary, unspecified laterality, pancreatic lesion TECHNIQUE: Magnetic resonance imaging (MRI) of the abdomen was performed without and with intravenous contrast. Sequences included coronal T2-weighted SS-FSE ARC, coronal T2-weighted FS SS-FSE, coronal T2-weighted 2D FS FIESTA, Water:Coronal LAVA-Flex, sagittal T2-weighted SS-FSE ARC, axial SSFSE ARC, axial 3D DualEcho, axial DWI B=600, axial T1-weighted LAVA, FAT:Coronal LAVA-Flex, and coronal in and opposed phase LAVA-Flex. Thick-slab T2-weighted FRFSE-XL images were obtained for magnetic resonance cholangiopancreatography (MRCP). Maximum intensity projection 3-D reconstructions of the volumetric data were created by the technologist. Postcontrast sequences included a time course of axial T1-weig hted LAVA, FAT:Coronal LAVA-Flex, coronal in and opposed phase LAVA-Flex, and Water:Coronal LAVA-Flex . COMPARISON: 05/15/2019 CONTRAST: Multihance, 20 cc FINDINGS: ABDOMEN MRI: There is loss of hepatic parenchymal signal on opposed phase imaging, consistent with he patic steatosis. Cysts of the spleen measure up to 2.5 cm. There is a 12 mm x 9 mm cystic lesion in t he head of the pancreas with thin septation. Although limited by respiratory motion artifact, no defi nite enhancement is identified after contrast administration. Overall, no significant change since 2018 comparison. The adrenal glands are normal. Cysts of the kidneys measure up to 1.3 cm on the le ft. There are no pathologically enlarged abdominal lymph nodes. No dilated loops of bowel are evident . The gallbladder is surgically absent. ABDOMEN MRCP: The pancreatic duct is normal in course and caliber. There is no intrahepatic or extrah epatic biliary dilatation. IMPRESSION: 1. No evidence of metastatic disease. 2. Small cystic lesion of the pancreas without significant change since the comparison MRI. Follow-up in one year is recommended. Reviewed, dictated and finalized at location A. OMER SERVICE MANAGER IMPRESSION: 1. No evidence of metastatic disease. 2. Small cystic lesion of the pancreas without significant change since the [facility] MRI. Follow-up in one year is recommended.
== END 2022-06-21 15:52 | disposition home or self-care (01) ==
PROVIDERS: PCP Family Medicine Adolescent Medicine; Visit Provider Obstetrics & Gynecology Gynecology
DX: C56.9 Malignant neoplasm of unspecified ovary (principal); K86.89 Other specified diseases of pancreas
CPT/HCPCS: 74183; 76376; A9577

== ENCOUNTER 2022-06-25 16:16 | Outpatient (CLI) | payer OTHER, SELFPAY ==
[2022-06-25 16:49] LABS: Anion Gap 6 mmol/L (8-16); Blood Urea Nitrogen 26 mg/dL (7-17); Calcium 9.8 mg/dL (8.4-10.2); Carbon Dioxide 33 mmol/L (22-30); Chloride 95 mmol/L (98-107); Estimated Glomerular Filt Rate 46; Glucose 292 mg/dL (65-110); Sodium 134 mmol/L (137-145)
[2022-06-25 17:40] LABS: Creatinine Urine 68.7 mg/dL
[2022-06-25 17:45] LABS: MALB Creatinine Ratio 61.9 mg/g (0-30); Microalbumin Urine Random 42.5 mg/L (0-16.7)
== END 2022-06-25 16:17 | disposition home or self-care (01) ==
LOC: ANHLAB 16:18
PROVIDERS: PCP Family Medicine Adolescent Medicine; Visit Provider Physician Assistant
DX: E11.9 Type 2 diabetes mellitus without complications (principal)
CPT/HCPCS: 36415; 80048; 82043; 83036

== ENCOUNTER 2022-08-01 14:54 | Outpatient (CLI) | payer OTHER, SELFPAY ==
--- NOTE | ~2022-08-01 | MM_ITS ---
EXAMINATION: MM screening diony BI w milton HISTORY: Screening mammogram TECHNIQUE: Craniocaudal and mediolateral oblique 3-D tomosynthesis images were obtained and synthetic 2-D images were generated. CAD analysis was submitted and interpreted. COMPARISON: 06/22/2020, 05/21/2019, 06/13/2017 bilateral screening mammogram examinations BREAST PARENCHYMAL COMPOSITION: There are scattered areas of fibroglandular density. FINDINGS: There is no evidence of suspicious mass, calcification, or architectural distortion to sugg est malignancy in either breast. There has been no suspicious interval change. IMPRESSION: 1. No mammographic evidence of malignancy. 2. Recommend routine screening mammography in one year. BI-RADS Category 1: Negative Reviewed, dictated and finalized at location A. ER HAND
== END 2022-08-01 14:55 | disposition home or self-care (01) ==
LOC: ANHIMG 14:55
PROVIDERS: PCP Family Medicine Adolescent Medicine; Visit Provider Obstetrics & Gynecology Gynecology
DX: Z12.31 Encounter for screening mammogram for malignant neoplasm of breast (principal)
CPT/HCPCS: 77063; 77067

== ENCOUNTER 2022-08-26 12:36 | Emergency (ER) | payer OTHER, SELFPAY ==
--- NOTE | ~2022-08-26 | CT_ITS ---
EXAMINATION: CT abdomen pelvis wo con DATE: 08/26/2022 14:19 INDICATION: Left flank pain TECHNIQUE: Computed tomography (CT) of the abdomen and pelvis was performed without intravenous contr ast. The dose-length product was 1235.49 mGy-cm. Automated exposure control and iterative reconstruct ion technique were employed. COMPARISON: CT dated 06/01/2022. FINDINGS: There is dependent atelectasis. Heart size normal. No significant pleural or pericardial ef fusion. There are splenic and bilateral renal cysts. The left kidney is enlarged with hydroureteronep hrosis secondary to distally obstructing 3 mm stone at the UVJ. Bladder is not well distended. Fatty infiltration of the liver. Status post cholecystectomy. The pancreas and adrenal glands are unr emarkable. Nonobstructive bowel gas pattern. Cystic lesion in the head of the pancreas seen on prior study is not demonstrated without contrast. There are postoperative changes in the anterior abdominal wall. No acute osseous abnormality. IMPRESSION: 1. Obstructing left UVJ stone measuring 3 mm with associated mild-moderate hydroureteronephrosis. Reviewed, dictated and finalized at location A. SIDE GRINDER IMPRESSION: 1. Obstructing left UVJ stone measuring 3 mm with associated mild-moderate hydr oureteronephrosis.
--- NOTE | ~2022-08-26 | XR_ITS ---
EXAM: XR abdomen/kub 1V DATE: 08/26/2022 15:48 HISTORY: left UVJ stone . COMPARISON: CT abdomen and pelvis, same date. FINDINGS: Clear lung bases. Cholecystectomy clips. Adjacent dystrophic calcifications versus residua l stones in a remnant cystic duct. Sigmoid anastomotic suture line. Surgical clips over the pelvis. N ormal bowel gas pattern. No organomegaly. Pelvic phleboliths. Regional bones and soft tissues normal for age. IMPRESSION: Known distal left UVJ stone not visualized radiographically. Reviewed, dictated and finalized at location K. TAL AND ESTUARY SPECIALIST
[2022-08-26 12:45] VITALS: BP 148/91; PULSE 90; RESP 15; TEMP 36.2; O2SAT 96
[2022-08-26 13:01] LABS: Basophils Percent Auto 0.4 % (0.2-1.2); Eosinophils Percent Auto 0.2 % (0-4.4); Hematocrit 41.4 % (37.0-47.0); Hemoglobin 13.7 g/dL (12.0-15.0); Immature Granulocyte Absolute 0.06 K/mm3 (0.00-0.031); Immature Granulocyte Percent A 0.7 % (0-0.5); Lymphocytes Percent Auto 12.1 % (18.3-44.2); Mean Corpuscular HGB Conc 33.1 g/dl (32-36); Mean Corpuscular Hemoglobin 29.3 pg (26-34); Mean Corpuscular Volume 88.7 fl (80-100); Mean Platelet Volume 9.7 fl (7.4-10.4); Monocytes Absolute Auto 0.2 K/mm3 (0.1-0.6); Monocytes Percent Auto 2.4 % (2.6-8.5); Neutrophils Absolute Auto 6.9 K/mm3 (1.3-6.7); Neutrophils Percent Auto 84.2 % (45.5-73.1); Platelet Count Result 173 k/mm3 (150-375); Red Blood Count 4.67 M/mm3 (4.2-5.4); Red Cell Distribution Width 13.7 % (11.5-14.5); White Blood Count 8.3 K/mm3 (4.5-10.0)
[2022-08-26 13:01] LABS: Appearance Urine Slightly Cloudy (Clear); Bilirubin Urine Negative (Negative); Blood Urine 3+ (Negative); Color Urine Yellow (Yellow); Glucose Urine UA Negative (Negative); Ketones Urine Negative (Negative); Leukocyte Esterase Ur Trace LEU/UL (Negative); Nitrate Urine Positive (Negative); Protein Urine 2+ mg/dL (Negative); Urobilinogen Urine 0.2 mg/dL (<2.0); pH Urine 5.5 (5.0-9.0)
[2022-08-26 13:09] LABS: Bacteria Urine 2+ /hpf; Mucus Urine Rare /lpf; RBC Urine >75 /hpf (0-2); Squamous Epithelial Cell Urine Rare /hpf (Few); WBC Clumps Urine Present /HPF; WBC Urine 16-20 /hpf
[2022-08-26 13:11] LABS: Add Urine Microscopic? YES
[2022-08-26 13:13] LABS: Alanine Aminotransferase 47 U/L (6-35); Albumin Level 4.6 g/dL (3.5-5.1); Alkaline Phosphatase 100 U/L (38-126); Anion Gap 6 mmol/L (8-16); Aspartate Amino Transferase 46 U/L (14-36); Bilirubin,Total 0.7 mg/dL (0.2-1.3); Blood Urea Nitrogen 24 mg/dL (7-17); Calcium 9.5 mg/dL (8.4-10.2); Carbon Dioxide 25 mmol/L (22-30); Chloride 106 mmol/L (98-107); Estimated CRCL calculation 50 ml/min; Estimated Glomerular Filt Rate 46; Glucose 175 mg/dL (65-110); Potassium 4.4 mmol/L (3.4-5.0); Sodium 137 mmol/L (137-145)
[2022-08-26 15:54] VITALS: BP 169/95; PULSE 92; RESP 16; O2SAT 96
[2022-08-26] MEDS: SODIUM CHLORIDE 0.9% IV 1,000 ML 999 ML IV CONT (16:03)
[2022-08-26] MEDS: KETOROLAC 30 MG/ML VIAL (*BKC) 15 MG IV PUSH (16:04)
[2022-08-26] MEDS: ONDANSETRON INJ 4 MG/2 ML VIAL IV PUSH (16:04)
--- NOTE | 2022-08-26 16:16 | ED.GENADULT ---
HPI - General Adult General Chief complaint: Back Pain/Injury Stated complaint: left flank pain Time Seen by Provider: 08/26/22 14:06 History of Present Illness HPI narrative: Patient is a 62-year-old female with history of kidney stones who presents ER with sudden onset flank pain. Began earlier this morning. Left-sided in her back. Denies radiation to her abdomen. Reports persistent nausea and vomiting. She has urinary frequency. No fevers chills or sweats. No alleviating factors. Related Data Home Medications Medication Instructions Recorded Confirmed anastrozole 1 mg tablet 1 mg PO DAILY 03/07/20 06/25/22 Allergies Allergy/AdvReac Type Severity Reaction Status Date / Time No Known Allergies Allergy Verified 06/25/22 15:11 Review of Systems Review of Systems: All systems reviewed & are unremarkable except as noted in HPI and below Constitutional: Constitutional: Denies chills, Denies fatigue and Denies fever(s) Gastrointestinal: Gastrointestinal: Denies abdominal pain, Denies diarrhea, Reports nausea and Reports vomiting Genitourinary: Genitourinary: Denies hematuria, Reports nocturia, Denies dysuria and Reports flank pain PMFSH Past Medical History Medical History Cancer Ovarian CA Diabetes Endometriosis HTN (hypertension) Hypercholesterolemia Obesity ROSENDA (obstructive sleep apnea) Surgical History Surgical History Hx of cholecystectomy Hx of dilation and curettage Hx of hysterectomy Hx of tonsillectomy Family History Family History Father Hypertension Also, father was diagnosed with skin ca last year. Mother Hypertension Other Family history of cardiovascular disease Social History Social History (Updated 01/04/22 @ 15:12 by Megan Joe MA) Smoking status: Never smoker Second hand tobacco smoke exposure: No Alcohol intake: never Substance use: never Substance use type: does not use Living arrangements: with family Additional living arrangements comments: Spouse Occupation/Education: occupation Gender identity (if verbalized by the patient): Female Sexual Orientation (if Verbalized by the Patient): Straight or Heterosexual Spiritual care concerns: No Agree to blood products: Yes Exam Narrative: GENERAL: Uncomfortable-appearing, well-nourished, and in no acute distress. HEAD: Normocephalic, atraumatic. ENT: Mucous membranes moist. CHEST: Clear to auscultation. No respiratory distress. HEART: Regular rate and rhythm. Normal peripheral pulses. ABDOMEN: Soft, nontender, nondistended. EXTREMITIES: Normal range of motion. No edema. SKIN: Warm, dry, no rash. NEURO: Alert and oriented x3. PSYCH: Normal mood and affect. Course Course Emergency Course: I discussed case with Dr. Briones. Patient with infected appearing urine. She is received ceftriaxone. Patient okay for discharge home and follow-up in clinic. Patient aware of diagnosis and treatment plan. She was much more comfortable after Toradol/Zofran/IV fluid. Will send home with urine strainer. Vital Signs Vital signs: Vital Signs Temperature 97.1 F L 08/26/22 12:45 Pulse Rate 90 08/26/22 12:45 Respiratory Rate 15 08/26/22 12:45 Blood Pressure 148/91 H 08/26/22 12:45 Pulse Oximetry 96 08/26/22 12:45 Temperature 97.1 F L 08/26/22 12:45 Pulse Rate 92 08/26/22 15:54 Respiratory Rate 16 08/26/22 15:54 Blood Pressure 169/95 H 08/26/22 15:54 Pulse Oximetry 96 08/26/22 15:54 Medical Decision Making Vital Signs Vital Signs: Vital Signs Temperature 97.1 F L 08/26/22 12:45 Pulse Rate 90 08/26/22 12:45 Respiratory Rate 15 08/26/22 12:45 Blood Pressure 148/91 H 08/26/22 12:45 Pulse Oximetry 96 08/26/22 12:45 Temperature 97.1 F L 08/26/22 12:45 Puls
== END 2022-08-26 18:20 | disposition home or self-care (01) ==
PROVIDERS: Emergency Medicine; Emergency Provider Emergency Medicine; PCP Family Medicine Adolescent Medicine
DX: N13.2 Hydronephrosis with renal and ureteral calculous obstruction (principal); E11.9 Type 2 diabetes mellitus without complications; E78.00 Pure hypercholesterolemia, unspecified; G47.33 Obstructive sleep apnea (adult) (pediatric); E66.9 Obesity, unspecified; Z68.36 Body mass index [BMI] 36.0-36.9, adult; Z90.710 Acquired absence of both cervix and uterus; Z85.43 Personal history of malignant neoplasm of ovary; Z87.442 Personal history of urinary calculi; Z79.84 Long term (current) use of oral hypoglycemic drugs
CPT/HCPCS: 36415; 74018; 74176; 80053; 81001; 85025; 87077; 87086; 87186; 96365; 96375; 99284; J0696; J1885; J2405; J7030

== ENCOUNTER 2022-09-05 15:29 | Outpatient (CLI) | payer OTHER, SELFPAY ==
[2022-09-05 16:26] LABS: Anion Gap 4 mmol/L (8-16); Blood Urea Nitrogen 28 mg/dL (7-17); Calcium 9.3 mg/dL (8.4-10.2); Carbon Dioxide 31 mmol/L (22-30); Chloride 102 mmol/L (98-107); Estimated Glomerular Filt Rate 51; Glucose 140 mg/dL (65-110); Potassium 3.8 mmol/L (3.4-5.0); Sodium 137 mmol/L (137-145)
[2022-09-05 16:39] LABS: Parathyroid Intact 79.9 pg/mL (7.5-53.5)
== END 2022-09-05 15:30 | disposition home or self-care (01) ==
PROVIDERS: PCP Family Medicine Adolescent Medicine; Visit Provider Urology
DX: N20.1 Calculus of ureter (principal)
CPT/HCPCS: 36415; 80048; 83970

== ENCOUNTER 2022-09-07 14:23 | Outpatient (CLI) | payer OTHER, SELFPAY ==
[2022-09-17 16:51] LABS: Magnesium, 24-Hour Urine 70 mg/day (>60.0); Phosphorus, 24-Hour Urine 841 mg/day (<1100); Sodium 24 Hour Urine 164 mEq/day (<200); Total Volume 24 Hour Urine 1 L/day (>2.00); Uric Acid, 24-Hour Urine 609 mg/day (<700)
== END 2022-09-07 14:24 | disposition home or self-care (01) ==
PROVIDERS: PCP Family Medicine Adolescent Medicine; Visit Provider Urology
DX: N20.1 Calculus of ureter (principal)
CPT/HCPCS: 82340

== ENCOUNTER 2022-10-01 15:42 | Outpatient (CLI) | payer OTHER, SELFPAY ==
--- NOTE | ~2022-10-01 | US_ITS ---
EXAMINATION: US thyroid DATE: 10/01/2022 16:18 INDICATION: Hyperparathyroidism. TECHNIQUE: Multiple ultrasound images of the thyroid were obtained. COMPARISON: None. FINDINGS: The right thyroid lobe measures 5.9 x 2.4 x 2.1 cm. The left thyroid lobe measures 5.3 x 1.8 x 1.4 c m. In the left thyroid lobe, there is an 8 mm predominantly solid, hypoechoic, wider than tall nodul e with smooth margin without echogenic foci (TI-RADS TR4). In the right thyroid lobe, there is a 14 m m solid, hypoechoic, wider than tall nodule with lobulated margin without echogenic foci (TR4). In th e right thyroid lobe, there is a 11 mm mixed cystic and solid, isoechoic, wider than tall nodule with smooth margin without echogenic foci (TR2). IMPRESSION: 1. Thyroid nodules. Thyroid ultrasound is recommended in one year. Reviewed, dictated and finalized at location A.
== END 2022-10-01 15:43 | disposition home or self-care (01) ==
PROVIDERS: PCP Family Medicine Adolescent Medicine; Visit Provider Nurse Practitioner Family
DX: E21.3 Hyperparathyroidism, unspecified (principal); E04.2 Nontoxic multinodular goiter
CPT/HCPCS: 76536

== ENCOUNTER 2022-10-19 09:44 | Outpatient (CLI) | payer OTHER, SELFPAY ==
--- NOTE | ~2022-10-19 | NM_ITS ---
EXAMINATION: NM parathyroid w imaging DATE: 10/19/2022 13:52 INDICATION: Primary hyperparathyroidism. TECHNIQUE: 19.8 mCi Tc99m sestamibi was administered intravenously. Anterior images of the neck were obtained immediately and at 2 hours. SPECT images of the neck were obtained. COMPARISON: Thyroid ultrasound 09/21/2022 FINDINGS: There is no focus of persistent activity in the area of the thyroid or mediastinum to sugge st parathyroid adenoma. IMPRESSION: 1. No evidence of a parathyroid adenoma. Reviewed, dictated and finalized at location A.
== END 2022-10-19 09:45 | disposition home or self-care (01) ==
PROVIDERS: PCP Family Medicine Adolescent Medicine; Visit Provider Otolaryngology
DX: E21.3 Hyperparathyroidism, unspecified (principal)
CPT/HCPCS: 78070; A9500

== ENCOUNTER 2022-12-10 14:54 | Outpatient (CLI) | payer OTHER, SELFPAY ==
[2022-12-10 15:22] LABS: Hemoglobin A1C 5.5 % (<5.7)
[2022-12-10 15:28] LABS: Albumin Level 4.3 g/dL (3.5-5.1); Anion Gap 7 mmol/L (8-16); Blood Urea Nitrogen 30 mg/dL (7-17); Calcium 9.3 mg/dL (8.4-10.2); Carbon Dioxide 28 mmol/L (22-30); Chloride 106 mmol/L (98-107); Estimated Glomerular Filt Rate 51; Glucose 103 mg/dL (65-110); Phosphorus 3.8 mg/dL (2.5-4.5); Sodium 141 mmol/L (137-145)
[2022-12-10 15:45] LABS: Free T4 Free Thyroxine 1.15 ng/mL (0.78-2.19)
[2022-12-10 15:58] LABS: Thyroid Stimulating Hormone 0.416 uIU/mL (0.465-4.680)
[2022-12-13 05:12] LABS: Triiodothyronine T3 Free 3.3 pg/mL (2.3-4.2)
== END 2022-12-10 14:55 | disposition home or self-care (01) ==
PROVIDERS: PCP Family Medicine Adolescent Medicine; Referring Provider Otolaryngology; Visit Provider Family Medicine Adolescent Medicine
DX: E11.65 Type 2 diabetes mellitus with hyperglycemia (principal); E04.1 Nontoxic single thyroid nodule
CPT/HCPCS: 36415; 80069; 83036; 83970; 84439; 84443; 84481

== ENCOUNTER 2023-03-30 08:23 | Outpatient (CLI) | payer OTHER, SELFPAY ==
--- NOTE | ~2023-03-30 | XR_ITS ---
XR abdomen/kub 1V 03/30/2023 08:57 Indication: Right ureteral stone Procedure: KUB Comparison: CT dated 08/26/2022 and KUB dated 12/27/2021 Findings: There are cholecystectomy clips. There are stones near the cholecystectomy clips which may represent dropped stones or residual stones and cystic duct remnant. There are surgical changes of th e pelvis. There are pelvic phleboliths. No definite renal stones. Nonobstructive bowel gas pattern. Impression: 1: No acute abdominal abnormality. Reviewed, dictated and finalized at location A. Impression: 1: No acute abdominal abnormality.
== END 2023-03-30 08:24 | disposition home or self-care (01) ==
PROVIDERS: PCP Family Medicine Adolescent Medicine; Visit Provider Urology
DX: N20.1 Calculus of ureter (principal)
CPT/HCPCS: 74018

== ENCOUNTER 2023-06-10 08:45 | Outpatient (CLI) | payer OTHER, SELFPAY ==
--- NOTE | ~2023-06-10 | MR_ITS ---
EXAMINATION: MR MRCP wo/w con/w 3D wo ind DATE: 06/10/2023 09:46 INDICATION: Endometrioid adenocarcinoma of right ovary. Pancreatic cyst. TECHNIQUE: Magnetic resonance imaging (MRI) of the abdomen was performed without and with 20 mL Multi Khang intravenous contrast. Sequences included coronal T2-weighted FS FSE, coronal T2-weighted FSE, a xial T1-weighted LAVA, coronal FS FIESTA, axial dual-echo T1-weighted SPGR, coronal lava-FLEX, sagitt al T2-weighted FSE, axial T2-weighted FSE, and axial DWI. Thick-slab T2-weighted FSE images were obta ined for magnetic resonance cholangiopancreatography (MRCP). Maximum intensity projection 3-D reconst ructions of the volumetric data were created by the technologist. Postcontrast sequences included cor onal LAVA-flex and time course of axial T1-weighted LAVA. COMPARISON: MRCP 06/21/2022, 05/15/19, CT abdomen and pelvis 08/26/2022 FINDINGS: ABDOMEN MRI: There is a small sliding hiatal hernia. There is diffuse hepatic steatosis. There is a c hronic 6 mm arterially hyperenhancing mass in segments 4A of the liver, likely benign. The gallbladde r is absent. There are cysts in the spleen measuring up to 2.8 cm. There is a 13 mm cyst with thin se ptation in the head of the pancreas. The adrenal glands are normal. There are cysts in the kidneys me asuring up to 11 mm on the left. There are no dilated loops of bowel. There are no pathologically enl arged lymph nodes. There is no free intraperitoneal fluid. Again seen is a hemangioma in L1. ABDOMEN MRCP: The common duct is normal and measures 6 mm. IMPRESSION: 1. 13 mm cystic lesion of the pancreas, stable from 05/15/2019. The differential diagnosis includes ps eudocyst, intraductal papillary mucinous neoplasm (IPMN), mucinous cystic neoplasm (MCN), serous cyst adenoma, and neuroendocrine tumor. Abdomen MRI without and with contrast is recommended in one year. 2. Diffuse hepatic steatosis. Reviewed, dictated and finalized at location E. [employer] HEALTH COACH IMPRESSION: 1. 13 mm cystic lesion of the pancreas, stable from 05/15/2019. The differential diagnosis includes pseudocyst, intraductal papillary mucinous neoplasm (IPMN), mucinous cystic neoplasm (MCN), serous cystadenoma, and neuroendocrine tumor. Abdomen MRI without and with contrast is recommended in one year. 2. Diffuse hepatic steatosis.
== END 2023-06-10 08:46 | disposition home or self-care (01) ==
PROVIDERS: PCP Family Medicine Adolescent Medicine; Visit Provider Obstetrics & Gynecology Gynecology
DX: C56.1 Malignant neoplasm of right ovary (principal); K76.0 Fatty (change of) liver, not elsewhere classified; K86.9 Disease of pancreas, unspecified
CPT/HCPCS: 74183; 76376; A9577

== ENCOUNTER 2023-06-18 15:19 | Outpatient (CLI) | payer OTHER, SELFPAY ==
[2023-06-22 04:23] LABS: CA-125 11 U/mL (<35)
== END 2023-06-18 15:20 | disposition home or self-care (01) ==
PROVIDERS: PCP Family Medicine Adolescent Medicine
DX: C56.1 Malignant neoplasm of right ovary (principal)
CPT/HCPCS: 36415; 86304

== ENCOUNTER 2023-06-20 07:20 | Outpatient (CLI) | payer OTHER, SELFPAY ==
--- NOTE | ~2023-06-20 | CT_ITS ---
Clinical Indication: Ovarian cancer CT Scan of the Chest, Abdomen, and Pelvis with Contrast: Technique: Contiguous sections were acquired throughout the chest, abdomen, and pelvis after intraven ous administration of 100 cc of Omnipaque 350. Dose reduction technique was used on this scan by doc estradaing automated exposure control and iterative reconstruction technique. The dose-length product (DL P) was 1659.06 mGy-cm. COMPARISON: 08/26/2022 and 06/01/2022 Findings: There is no evidence of any significant mediastinal, hilar or axillary lymphadenopathy. The mediastin al soft tissues appear normal. There is no evidence of pleural or pericardial effusion. The lungs are clear. No pulmonary nodules or infiltrates are noted. There is probable diffuse hepatic steatosis. Cholecystectomy clips are present. Stable splenic cysts. Stable small cystic lesion at the pancreatic head. The adrenals and kidneys are within normal limits . No evidence of aortic aneurysm. No lymphadenopathy. No bowel obstruction or bowel wall thickening. There is no evidence to suggest acute appendicitis. Mild urinary bladder wall thickening present. No pelvic mass seen. No ascites. Impression: No evidence for active malignancy or metastatic disease. Possible cystitis. Correlate with urinalysis. Diffuse hepatic steatosis. Reviewed, dictated and finalized at [facility]. GION DEPARTMENT CHAIR Impression: No evidence for active malignancy or metastatic disease. Possible cystitis. Correlate with urinalysis. Diffuse hepatic steatosis.
[2023-06-20 07:43] LABS: Estimated Glomerular Filt Rate 50
== END 2023-06-20 07:21 | disposition home or self-care (01) ==
PROVIDERS: PCP Family Medicine Adolescent Medicine
DX: C56.1 Malignant neoplasm of right ovary (principal); K76.0 Fatty (change of) liver, not elsewhere classified
CPT/HCPCS: 71260; 74177; Q9967

== ENCOUNTER 2023-11-23 07:51 | Outpatient (CLI) | payer OTHER, SELFPAY ==
[2023-11-23 08:26] LABS: Alanine Aminotransferase 29 U/L (6-35); Albumin Level 4.1 g/dL (3.5-5.1); Alkaline Phosphatase 91 U/L (38-126); Anion Gap 6 mmol/L (4-12); Aspartate Amino Transferase 24 U/L (14-36); Bilirubin,Total 0.6 mg/dL (0.2-1.3); Blood Urea Nitrogen 29 mg/dL (7-17); Calcium 9.1 mg/dL (8.4-10.2); Carbon Dioxide 24 mmol/L (22-30); Chloride 109 mmol/L (98-107); Cholesterol 128 mg/dL (0-200); Estimated Glomerular Filt Rate 50; Glucose 183 mg/dL (65-110); HDL Direct 36 mg/dL; Potassium 4.3 mmol/L (3.4-5.0); Sodium 139 mmol/L (137-145); Triglycerides 131 mg/dL (<150)
[2023-11-23 08:37] LABS: LDL Cholesterol Direct 78 mg/dL
== END 2023-11-23 07:52 | disposition home or self-care (01) ==
LOC: ANHLAB 07:54
PROVIDERS: PCP Family Medicine Adolescent Medicine; Visit Provider Family Medicine Adolescent Medicine
DX: E11.65 Type 2 diabetes mellitus with hyperglycemia (principal); E78.00 Pure hypercholesterolemia, unspecified; I10 Essential (primary) hypertension
CPT/HCPCS: 36415; 80053; 80061; 83036

== ENCOUNTER 2024-03-11 14:10 | Outpatient (CLI) | payer OTHER, SELFPAY ==
--- NOTE | ~2024-03-11 | XR_ITS ---
EXAMINATION: XR knee LT 3V, XR knee RT 3V DATE: 03/11/2024 14:35 INDICATION: Bilateral knee pain not responding to injections TECHNIQUE: 1.Weight bearing AP, weightbearing lateral and sunrise views of the left knee were obtained. 2. Weight bearing AP, weightbearing lateral and sunrise views of the right knee were obtained. COMPARISON: None. FINDINGS: Right knee: Alignment is normal. No fracture. Osteoarthritis at the right knee with mild joint space scarring at the medial compartment and small marginal osteophytes in the patellofemoral compartment. No joint ef fusion. Soft tissues are unremarkable. Left knee: Alignment is normal. Severe joint space narrowing in the medial compartment with small marginal osteo phytes. Additional small marginal osteophytes in medial and patellofemoral compartments. No joint eff usion. Soft tissues are unremarkable. IMPRESSION: 1. 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 2. Mild medial and patellofemoral osteoarthritis of the right knee. Reviewed, dictated and finalized at location A. IMPRESSION: 1. 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 2. Mild medial and patellofemoral osteoarthritis of the right knee.
== END 2024-03-11 14:11 | disposition home or self-care (01) ==
PROVIDERS: PCP Family Medicine Adolescent Medicine; Visit Provider Family Medicine Adolescent Medicine
DX: M17.0 Bilateral primary osteoarthritis of knee (principal)
CPT/HCPCS: 73562

== ENCOUNTER 2024-05-17 12:31 | Outpatient (CLI) | payer OTHER, SELFPAY ==
--- NOTE | ~2024-05-17 | MR_ITS ---
MRI of the right knee Clinical history: Arthritis Technique: Coronal proton density and proton density-weighted images, sagittal proton-density and T2 fat-sat images, and axial proton-density fat-saturated images were acquired. Findings: Anterior and posterior cruciate ligaments are intact. Medial collateral ligament and the la teral collateral ligament complex are intact. Popliteus tendon is intact. There is extensive complex tearing of the anterior horn and body of the medial meniscus, with the bod y segment in particular having a macerated appearance. No definite lateral meniscal tear seen. There is extensive high-grade chondromalacia of the patella. There is focal moderate chondral malacia at the inferior femoral trochlea. There is diffuse high-grade chondromalacia on both sides of the me dial compartment with medial compartment joint space narrowing. There is high-grade chondromalacia to wards the lateral joint line. Small tricompartmental osteophytes are present. Extensor mechanism is intact. Small to moderate joint effusion present. No Garcia's cyst. Impression: Severe degenerative change of the medial compartment. Moderate degenerative change of the lateral pat ellofemoral compartment. Extensive complex tearing of the anterior horn and body of medial meniscus, as detailed above. [id number] joint effusion. Reviewed, dictated and finalized at location . [facility] Impression: Severe degenerative change of the medial compartment. Moderate degenerative genesis nge of the lateral patellofemoral compartment. Extensive complex tearing of the anterior horn and body of medial meniscus, as detailed above. [id number]-[id number] joint effusion.
== END 2024-05-17 12:32 | disposition home or self-care (01) ==
LOC: ANHIMG 12:31
PROVIDERS: PCP Family Medicine Adolescent Medicine; Visit Provider Nurse Practitioner Family
DX: M17.11 Unilateral primary osteoarthritis, right knee (principal); S83.241A Other tear of medial meniscus, current injury, right knee, initial encounter; M25.461 Effusion, right knee
CPT/HCPCS: 73721

== ENCOUNTER 2024-06-12 05:36 | Emergency (ER) | payer OTHER, SELFPAY ==
[2024-06-12] VITALS (11 sets, daily range): BP systolic 143–178; BP diastolic 92–107; PULSE 81–87; RESP 16–18; TEMP 36.7–36.9; O2SAT 96–98
--- NOTE | 2024-06-12 06:17 | ECG_ITS ---
Test Date: 2024-06-12 06:26:35 Measurements Intervals [place] Rate: 85 P: 32 CT: 137 QRS: -14 QRSD: 86 T: -1 QT: 377 QTc: 449 Interpretive Statements SINUS RHYTHM INFERIOR MYOCARDIAL INFARCTION , PROBABLY OLD [40+ ms Q WAVE AND/OR ST/T ABNORMALITY IN II/aVF] No previous ECG available for comparison Electronically Signed On 06-12-2024 12:46:07 [employer]INE [employer]CH[employer]IC by Tio Jim M.D.
--- NOTE | 2024-06-12 06:26 | ED_ITS ---
HPI - General Adult General Chief complaint: Recheck/Abnormal Lab/Rx <Kenny Barriga MD - Last Filed: 06/12/24 06:29> Stated complaint: bp elevated <Kenny Barriga MD - Last Filed: 06/12/24 06:29> Time Seen by Provider: 06/12/24 05:59 <Kenny Barriga MD - Last Filed: 06/12/24 06:29> History of Present Illness HPI narrative: patient is a 62-year-old female who presents emergency department chief complaint hypertension. Patient states that she saw her oncologist yesterday and they noticed that her blood pressure was elevated they recommended the patient follow-up with her primary care provider the patient states that today she checked her blood pressure and was elevated the patient states that today she has had no symptoms but does report that she decided to come to the emergency department she did report that earlier this week she had an episode where she felt lightheaded and flushed the patient was concerned because with acute had different symptoms for heart attacks <Kenny Barriga MD - Last Filed: 06/12/24 06:29> Related Data Home medications: Home Medications Medication Instructions Recorded Confirmed anastrozole 1 mg tablet 1 mg PO DAILY 03/07/20 03/30/24 <Kenny Barriga MD - Last Filed: 06/12/24 06:29> Allergies/adverse reactions: Allergies Allergy/AdvReac Type Severity Reaction Status Date / Time surgical glue Allergy Rash Uncoded 06/01/24 14:02 <Kenny Barriga MD - Last Filed: 06/12/24 06:29> Review of Systems Review of Systems: A 10 system review of systems was completed on the patient and is negative except for what is stated in the HPI. Nursing and ancillary documentation was reviewed. <Kenny Barriga MD - Last Filed: 06/12/24 06:29> PMFSH Past Medical History Medical History: Medical History (Updated 06/12/24 @ 09:46 by Cait Jones MD) Bilateral knee pain BMI greater than 40 Cancer Ovarian CA Endometriosis HTN (hypertension) Hypercholesterolemia Left knee DJD Obesity ROSENDA (obstructive sleep apnea) (2017) Right knee DJD Vertigo Wears glasses <Kenny Barriga MD - Last Filed: 06/12/24 06:29> Surgical History Surgical History: Surgical History Hx of cholecystectomy (2013) Hx of dilation and curettage Hx of hysterectomy (2014) Hx of tonsillectomy <Kenny Barriga MD - Last Filed: 06/12/24 06:29> Family History Family History: Family History Father Hypertension Also, father was diagnosed with skin ca last year. Mother Hypertension Unknown Breast cancer Bladder cancer Skin cancer Ovarian cancer Other Family history of cardiovascular disease <Kenny Barriga MD - Last Filed: 06/12/24 06:29> Social History Social History: Social History Smoking status: Never smoker Second hand tobacco smoke exposure: No Alcohol intake: never Substance use: never Substance use type: does not use Lack of Transportation: No Lack of Food: Never True Current Housing: I Have Housing Concerned About Future Housing: No Difficulty Paying Gas/Electric Bills: No Difficulty Paying for Meds: No Currently Unemployed: No Education: High School Diploma/GED Difficulty w/ Childcare or Family Care: No Living arrangements: with family Additional living arrangements comments: Spouse Occupation/Education: occupation 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 HEAD: Normocephalic, atraumatic. EYES: PERRLA and EOMI. ENT: Nares clear, no rhinorrhea or epistaxis. Mucous membranes moist. NECK: Supple. CHEST: Clear to auscultation. No respiratory distress. HEART: Regular rate and rhythm. No murmur heard. Normal peripheral pulses. ABDOMEN: Soft, nontender, nondistended, normal active bowel sounds. EXTREMITIES: Normal range of motion. No edema. SKIN: Warm, dry, no rash. NEURO: No focal deficits. Alert and oriented x3. PSYCH: Normal mood and affect. <Kenny Barriga MD - Last Filed: 06/12/24 06:29> Course Course Emergency Course: Patient signed out to me pending troponin and urinalysis as well as reassessment. She does have mild thrombocytopenia. Her creatinine appears stable baseline consistent with what appears to be CKD. Troponin is normal. She has hyperglycemia without anion gap acidosis. Minor elevation in a liver enzyme ho wever this has been seen previously. Urinalysis is concerning for urinary tract infection given the presence of bacteria (although also squamous cells), white blood cells, red blood cells, leukocyte esterase, and nitrates. For this reason and through shared decision making with the patient given that she was having some vague complaints recently of just not feeling well, reasonable to treat. Patient verifies understanding and is in agreement. Given 1st dose of antibiotic in the emergency department with the rest of the course prescribed we did discuss that she would be notified if based on the urine culture this regimen needs to be changed. In regards to her hypertension, we discussed that her labs otherwise were stable and the recommendation would be to not intervene and drastically try to drop her blood pressure today but that she should continue to keep a log and take this to her primary care physician's for further management and treatment. She verifies understanding and will call today to see when they would like to see her next with the log that she will begin to keep. Emergency department return precautions given as well. Patient and family verifies understanding. Stable for discharge. <Cait Jones MD - Last Filed: 06/12/24 09:50> Vital Signs Vital signs: Vital Signs Pulse Oximetry 98 06/12/24 05:44 Temperature 98.1 F 06/12/24 05:59 Pulse Rate 81 06/12/24 08:11 Respiratory Rate 17 06/12/24 08:11 Blood Pressure 143/94 H 06/12/24 08:11 Pulse Oximetry 98 06/12/24 08:11 <Kenny Barriga MD - Last Filed: 06/12/24 06:29> Vital Signs Pulse Oximetry 98 06/12/24 05:44 Temperature 98.1 F 06/12/24 05:59 Pulse Rate 81 06/12/24 08:11 Respiratory Rate 17 06/12/24 08:11 Blood Pressure 143/94 H 06/12/24 08:11 Pulse Oximetry 98 06/12/24 08:11 <Cait Jones MD - Last Filed: 06/12/24 09:50> Medical Decision Making MDM Narrative Medical decision making narrative: differential diagnosis includes electrolyte abnormality, anemia, ACS, EKG showed no acute ischemic changes the patient is currently asymptomatic plan will be to check lab work if the blood work is within normal limits the patient be discharged home <Kenny Barriga MD - Last Filed: 06/12/24 06:29> Vital Signs Vital Signs: Vital Signs Pulse Oximetry 98 06/12/24 05:44 Temperature 98.1 F 06/12/24 05:59 Pulse Rate 81 06/12/24 08:11 Respiratory Rate 17 06/12/24 08:11 Blood Pressure 143/94 H 06/12/24 08:11 Pulse Oximetry 98 06/12/24 08:11 <Kenny Barriga MD - Last Filed: 06/12/24 06:29> Vital Signs Pulse Oximetry 98 06/12/24 05:44 Temperature 98.1 F 06/12/24 05:59 Pulse Rate 81 06/12/24 08:11 Respiratory Rate 17 06/12/24 08:11 Blood Pressure 143/94 H 06/12/24 08:11 Pulse Oximetry 98 06/12/24 08:11 <Cait Jones MD - Last Filed: 06/12/24 09:50> Lab Data Result diagrams: 06/12/24 06:29 06/12/24 06:29 <Kenny Barriga MD - Last Filed: 06/12/24 06:29> Labs: Lab Results 06/12/24 06/12/24 Range/Units 06:29 09:12 WBC 4.6 (4.5-10.0) K/mm3 RBC 5.00 (4.2-5.4) M/mm3 Hgb 14.4 (12.0-15.0) g/dL Hct 44.2 (37.0-47.0) % MCV 88.4 (80-100) fl MCH 28.8 (26-34) pg MCHC 32.6 (32-36) g/dl RDW 13.3 (11.5-14.5) % Plt Count 144 L (150-375) k/mm3 MPV 9.6 (7.4-10.4) fl Immature Gran % (Auto) 0.2 (0-0.5) % Neut % (Auto) 67.3 (45.5-73.1) % Lymph % (Auto) 23.3 (18.3-44.2) % Stone % (Auto) 7.3 (2.6-8.5) % Eos % (Auto) 1.3 (0-4.4) % Baso % (Auto) 0.6 (0.2-1.2) % Lymph # (Auto) 1.08 (0.9-3.2) K/mm3 Stone # (Auto) 0.3 (0.1-0.6) K/mm3 Eos # (Auto) 0.1 (0-0.3) K/mm3 Baso # (Auto) 0.0 (0.0-0.1) K/mm3 Abs Immat Gran (auto) 0.01 (0.00-0.031) K/mm3 Absolute Neuts (auto) 3.1 (1.3-6.7) K/mm3 Absolute Nucleated RBC 0.000 (0.0-0.012) K/mm3 Nucleated RBC % 0.0 (0.0-0.2) % Sodium 140 (137-145) mmol/L Potassium 3.9 (3.4-5.0) mmol/L Chloride 108 H (98-107) mmol/L Carbon Dioxide 26 (22-30) mmol/L Anion Gap 6 (4-12) mmol/L BUN 29 H (7-17) mg/dL Creatinine 1.10 H (0.7-1.0) mg/dL Estim Creat Clear Calc 57 ml/min Estimated GFR 50 L (59 - ) Glucose 182 H (65-110) mg/dL Calcium 9.3 (8.4-10.2) mg/dL Total Bilirubin 0.7 (0.2-1.3) mg/dL AST 30 (14-36) U/L ALT 38 H (6-35) U/L Alkaline Phosphatase 82 (38-126) U/L Troponin I < 0.012 (0.000-0.034) ng/mL Total Protein 7.0 (6.3-8.2) g/dL Albumin 4.3 (3.5-5.1) g/dL Urine Color Yellow (Yellow) Urine Appearance Cloudy H (Clear) Urine pH 5.5 (5.0-9.0) Ur Specific [place] 1.027 (1.001-1.035) Urine Protein 1+ H (Negative) mg/dL Urine Glucose (UA) 1+ H (Negative) mg/dL Urine Ketones Negative (Negative) mg/dL Ur Blood (Man) 1+ H (Negative) Urine Nitrate Positive H (Negative) Urine Bilirubin Negative (Negative) Urine Urobilinogen 0.2 (<2.0) mg/dL Leukocyte Esterase Rfl 1+ H (Negative) TEDDY/UL Urine RBC 6-10 H (0-2) /hpf Urine WBC 21-50 H (0-3) /hpf Ur Squamous Epith Cells Occasional (Few) /hpf Urine Bacteria 4+ H /hpf Urine Casts 0-2 <Kenny Barriga MD - Last Filed: 06/12/24 06:29> Lab Results 06/12/24 06/12/24 Range/Units 06:29 09:12 WBC 4.6 (4.5-10.0) K/mm3 RBC 5.00 (4.2-5.4) M/mm3 Hgb 14.4 (12.0-15.0) g/dL Hct 44.2 (37.0-47.0) % MCV 88.4 (80-100) fl MCH 28.8 (26-34) pg MCHC 32.6 (32-36) g/dl RDW 13.3 (11.5-14.5) % Plt Count 144 L (150-375) k/mm3 MPV 9.6 (7.4-10.4) fl Immature Gran % (Auto) 0.2 (0-0.5) % Neut % (Auto) 67.3 (45.5-73.1) % Lymph % (Auto) 23.3 (18.3-44.2) % Stone % (Auto) 7.3 (2.6-8.5) % Eos % (Auto) 1.3 (0-4.4) % Baso % (Auto) 0.6 (0.2-1.2) % Lymph # (Auto) 1.08 (0.9-3.2) K/mm3 Stone # (Auto) 0.3 (0.1-0.6) K/mm3 Eos # (Auto) 0.1 (0-0.3) K/mm3 Baso # (Auto) 0.0 (0.0-0.1) K/mm3 Abs Immat Gran (auto) 0.01 (0.00-0.031) K/mm3 Absolute Neuts (auto) 3.1 (1.3-6.7) K/mm3 Absolute Nucleated RBC 0.000 (0.0-0.012) K/mm3 Nucleated RBC % 0.0 (0.0-0.2) % Sodium 140 (137-145) mmol/L Potassium 3.9 (3.4-5.0) mmol/L Chloride 108 H (98-107) mmol/L Carbon Dioxide 26 (22-30) mmol/L Anion Gap 6 (4-12) mmol/L BUN 29 H (7-17) mg/dL Creatinine 1.10 H (0.7-1.0) mg/dL Estim Creat Clear Calc 57 ml/min Estimated GFR 50 L (59 - ) Glucose 182 H (65-110) mg/dL Calcium 9.3 (8.4-10.2) mg/dL Total Bilirubin 0.7 (0.2-1.3) mg/dL AST 30 (14-36) U/L ALT 38 H (6-35) U/L Alkaline Phosphatase 82 (38-126) U/L Troponin I < 0.012 (0.000-0.034) ng/mL Total Protein 7.0 (6.3-8.2) g/dL Albumin 4.3 (3.5-5.1) g/dL Urine Color Yellow (Yellow) Urine Appearance Cloudy H (Clear) Urine pH 5.5 (5.0-9.0) Ur Specific [place] 1.027 (1.001-1.035) Urine Protein 1+ H (Negative) mg/dL Urine Glucose (UA) 1+ H (Negative) mg/dL Urine Ketones Negative (Negative) mg/dL Ur Blood (Man) 1+ H (Negative) Urine Nitrate Positive H (Negative) Urine Bilirubin Negative (Negative) Urine Urobilinogen 0.2 (<2.0) mg/dL Leukocyte Esterase Rfl 1+ H (Negative) TEDDY/UL Urine RBC 6-10 H (0-2) /hpf Urine WBC 21-50 H (0-3) /hpf Ur Squamous Epith Cells Occasional (Few) /hpf Urine Bacteria 4+ H /hpf Urine Casts 0-2 <Cait Jones MD - Last Filed: 06/12/24 09:50> Discharge Plan Discharge Clinical Impression: HTN (hypertension), Thrombocytopenia, CKD (chronic kidney disease), Hyperglycemia, Elevated ALT measurement, Abnormal urinalysis <Kenny Barriga MD - Last Filed: 06/12/24 06:29> Patient Disposition: Home, Self-Care <Kenny Barriga MD - Last Filed: 06/12/24 06:29> Condition: Stable <Kenny Barriga MD - Last Filed: 06/12/24 06:29> Instructions: Antibiotic Form, Chronic Kidney Disease (ED), Chronic Kidney Disease Diet (DC), Hypertension (ED), Diabetic Hyperglycemia (ED), Diabetic Kidney Disease (ED) <Kenny Barriga MD - Last Filed: 06/12/24 06:29> Additional Instructions: As we discussed, your workup did not reveal any concerning worsened organ damage from your high blood pressure (hypertension) at this time so the recommendation is for you to continue to take your antihypertensive medication as prescribed and keep a log where you check your blood pressure. Call your primary care physician to make appointment for follow-up or this log can be reviewed in you can discuss if your regimen needs to be changed. Although you deny any classic symptoms of urinary tract infection, your urinalysis had several features that were concerning for this and given that you had some vague symptoms, it is reasonable to treat with a short course of anti biotics. You received the 1st dose in the emergency department with the rest of the course prescribed and will be notified if based on the urine culture this regimen needs to be changed. Return to the emergency department with any new or worsening symptoms. <Kenny Barriga MD - Last Filed: 06/12/24 06:29> Prescriptions: New nitrofurantoin macrocrystal 100 mg capsule 100 mg PO Q12H 7 Days Qty: 13 5RF Rx Instructions: must administer with a meal/food. Start 12/6 PM (received first dose in ED 12/6 AM) No Action meloxicam 7.5 mg tablet 7.5 mg PO DAILY Qty: 30 3RF tramadol 50 mg tablet 50 mg PO Q12H PRN (Reason: pain) Qty: 30 0RF anastrozole 1 mg Tablet 1 mg PO DAILY metformin 500 mg tablet extended release 24 hr 1,000 mg PO DAILY Qty: 180 3RF simvastatin 20 mg tablet See Rx Instructions .ROUTE .COMPLEX Qty: 90 2RF Dose Instruction: Take 1 tablet by mouth once daily Rx Instructions: Take 1 tablet by mouth once daily lisinopril 30 mg tablet See Rx Instructions .ROUTE .COMPLEX Qty: 90 2RF Dose Instruction: Take 1 tablet by mouth once daily Rx Instructions: Take 1 tablet by mouth once daily glimepiride 2 mg tablet See Rx Instructions .ROUTE .COMPLEX Qty: 90 2RF Dose Instruction: TAKE 1 TABLET BY MOUTH ONCE DAILY IN THE MORNING WITH BREAKFAST Rx Instructions: TAKE 1 TABLET BY MOUTH ONCE DAILY IN THE MORNING WITH BREAKFAST <Kenny Barriga MD - Last Filed: 06/12/24 06:29> Follow-up/Referrals: Frederick Estrada MD [Primary Care Provider] - <Kenny Barriga MD - Last Filed: 06/12/24 06:29> Stand Alone Forms: Work/School Release IP <Kenny Barriga MD - Last Filed: 06/12/24 06:29> Time of Disposition: 09:47 <Kenny Barriga MD - Last Filed: 06/12/24 06:29> 09:47 <Cait Jones MD - Last Filed: 06/12/24 09:50>
[2024-06-12 06:41] LABS: Basophils Percent Auto 0.6 % (0.2-1.2); Eosinophils Absolute Auto 0.1 K/mm3 (0-0.3); Eosinophils Percent Auto 1.3 % (0-4.4); Hematocrit 44.2 % (37.0-47.0); Hemoglobin 14.4 g/dL (12.0-15.0); Immature Granulocyte Absolute 0.01 K/mm3 (0.00-0.031); Immature Granulocyte Percent A 0.2 % (0-0.5); Lymphocytes Absolute Auto 1.08 K/mm3 (0.9-3.2); Lymphocytes Percent Auto 23.3 % (18.3-44.2); Mean Corpuscular HGB Conc 32.6 g/dl (32-36); Mean Corpuscular Hemoglobin 28.8 pg (26-34); Mean Corpuscular Volume 88.4 fl (80-100); Mean Platelet Volume 9.6 fl (7.4-10.4); Monocytes Absolute Auto 0.3 K/mm3 (0.1-0.6); Monocytes Percent Auto 7.3 % (2.6-8.5); Neutrophils Absolute Auto 3.1 K/mm3 (1.3-6.7); Neutrophils Percent Auto 67.3 % (45.5-73.1); Platelet Count Result 144 k/mm3 (150-375); Red Cell Distribution Width 13.3 % (11.5-14.5); White Blood Count 4.6 K/mm3 (4.5-10.0)
[2024-06-12 06:52] LABS: Alanine Aminotransferase 38 U/L (6-35); Albumin Level 4.3 g/dL (3.5-5.1); Alkaline Phosphatase 82 U/L (38-126); Anion Gap 6 mmol/L (4-12); Aspartate Amino Transferase 30 U/L (14-36); Bilirubin,Total 0.7 mg/dL (0.2-1.3); Blood Urea Nitrogen 29 mg/dL (7-17); Calcium 9.3 mg/dL (8.4-10.2); Carbon Dioxide 26 mmol/L (22-30); Chloride 108 mmol/L (98-107); Estimated CRCL calculation 57 ml/min; Estimated Glomerular Filt Rate 50; Glucose 182 mg/dL (65-110); Potassium 3.9 mmol/L (3.4-5.0); Sodium 140 mmol/L (137-145)
[2024-06-12 07:03] LABS: Troponin I < 0.012 ng/mL (0.000-0.034)
[2024-06-12 09:25] LABS: Add Urine Microscopic? YES; Appearance Urine Cloudy (Clear); Bacteria Urine 4+ /hpf; Bilirubin Urine Negative (Negative); Blood Urine 1+ (Negative); Color Urine Yellow (Yellow); Glucose Urine UA 1+ mg/dL (Negative); Ketones Urine Negative (Negative); Leukocyte Esterase Ur 1+ LEU/UL (Negative); Nitrate Urine Positive (Negative); Non Pathogenic Casts 0-2; Protein Urine 1+ mg/dL (Negative); Specific Grav Ur 1.027 (1.001-1.035); Squamous Epithelial Cell Urine Occasional /hpf (Few); Urobilinogen Urine 0.2 mg/dL (<2.0); WBC Urine 21-50 /hpf (0-3); pH Urine 5.5 (5.0-9.0)
[2024-06-12] MEDS: NITROFURANTOIN MONOHYD MACROCR 100 MG CAP PO (10:16)
== END 2024-06-12 10:26 | disposition home or self-care (01) ==
PROVIDERS: Emergency Medicine; Emergency Provider Student in an Organized Health Care Education/Training Program; PCP Family Medicine Adolescent Medicine
DX: I12.9 Hypertensive chronic kidney disease with stage 1 through stage 4 chronic kidney disease, or unspecified chronic kidney disease (principal); D69.6 Thrombocytopenia, unspecified; N18.9 Chronic kidney disease, unspecified; R73.9 Hyperglycemia, unspecified; R74.01 Elevation of levels of liver transaminase levels; R82.90 Unspecified abnormal findings in urine; E66.9 Obesity, unspecified; Z68.41 Body mass index [BMI] 40.0-44.9, adult; E78.00 Pure hypercholesterolemia, unspecified; Z85.43 Personal history of malignant neoplasm of ovary
CPT/HCPCS: 36415; 80053; 81001; 84484; 85025; 87077; 87086; 87186; 93005; 99284; A9270

== ENCOUNTER 2024-11-03 07:02 | Outpatient (CLI) | payer OTHER, SELFPAY ==
--- NOTE | ~2024-11-03 | CT_ITS ---
Clinical Indication: Recurrent ovarian carcinoma CT Scan of the Chest, Abdomen, and Pelvis with Contrast: Technique: Contiguous sections were acquired throughout the chest, abdomen, and pelvis after intraven ous administration of 100 cc of Omnipaque 350. Dose reduction technique was used on this scan by doc mandujano automated exposure control and iterative reconstruction technique. The dose-length product (DL P) was 1543.74 mGy-cm. Comparison: 06/20/2023 Findings: There is no evidence of any significant mediastinal, hilar or axillary lymphadenopathy. The mediastin al soft tissues and vascular structures appear normal. There is no evidence of pleural or pericardial effusion. The lungs are clear. No pulmonary nodules or infiltrates are noted. There is diffuse hepatic steatosis. Cholecystectomy clips are present. Cystic-appearing splenic bud s are unchanged. Stable small cystic lesion at the pancreatic head. The adrenals and kidneys are with in normal limits. No evidence of aortic aneurysm. No lymphadenopathy. No bowel obstruction or bowel wall thickening. There is no evidence to suggest acute appendicitis. Urinary bladder is unremarkable. No pelvic mass seen. Status post hysterectomy. Impression: No evidence for active malignancy or metastatic disease. Diffuse hepatic steatosis. Stable cystic-appearing splenic and pancreatic lesions. Reviewed, dictated and finalized at location . Impression: No evidence for active malignancy or metastatic disease. Diffuse hepatic steatosis. Stable cystic-appearing splenic and pancreatic lesions.
--- OUTSIDE RECORDS SUMMARY | 2024-11-03 07:06 | XMS_ITS | Encounter Summary ---
Author Organization [facility] Address [address] [place] [address] Care Team Providers Care Environmental Law Professor Name Role Phone Frederick Estrada MD Primary Care Provider [phone]- [phone] Encounter Details Date Type Department Care Team (Late st Contact Info) Description 02/12/2018 Chart Note [facility] Rad[facility] Therapy [address] [place] [address] [place] [address] [place] [address] Social History Tobacco Use Types Packs/Day Years Used Date Smoking Tobacco: Never Alcohol Use Standard Drinks/Week Comments No 0 (1 standard drink = 0.6 oz pur e alcohol) Comments No Sex and Gender Information Value Date Recorded Sex Assigned at Not on file Legal Sex Female 4:24 PM CDT Gender Identity Not on file Sexual Orientation Not on file documented as of this encounter Plan of Treatment Not on file documented as of this encounter Visit Diagnoses Not on filedocumented in this encounter Care Teams Environmental Law Professor Relationship Specialty Start Date End Date Frederick Estrada MD PCP - General Family Practice 05/10/16 documented as of this encounter
--- OUTSIDE RECORDS SUMMARY | 2024-11-03 07:06 | XMS_ITS | Clinical Summary ---
Author Organization [facility] Address [address] [facility] [place] [address] Care Team Providers Care Fire Adjuster Name Role Phone Frederick Estrada MD Primary Care Provider [phone]- [phone] Allergies No known active allergies Medications ondansetron (ZOFRAN) 8 mg Tablet Take 1 Tablet (8 mg) by mouth every 8 hours as needed for Nausea/Emes is. 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 Benign hypertension 05/10/2016 Family History Medical History Relation Name Comments Hypertension Father Hypertension Mother Heart Disease Sister Liver Disease Sister Relation Name Status Comments Brother Alive Father Alive Mother Alive Sister Alive Social History Tobacco Use Types Packs/Day Years Used Date Smoking Tobacco: Never Alcohol Use Standard Drinks/Week Comments No 0 (1 standard drink = 0.6 oz pur e alcohol) Comments No Sex and Gender Information Value Date Recorded Sex Assigned at Not on file Legal Sex Female 4:24 PM CDT Gender Identity Not on file Sexual Orientation Not on file Last Filed Vital Signs Vital Sign Reading Time Taken Comments Blood Pressure 128/90 10/15/2016 2:57 PM CDT Pulse 68 10/15/2016 2:57 PM CDT Temperature 36.8 C (98.2 F) 10/15/2016 2:57 PM CDT Respiratory Rate 16 10/15/2016 2:57 PM CDT Oxygen Saturation - - Inhaled Oxygen Concentration - - Weight 104.8 kg (231 lb) 10/15/2016 2:57 PM CDT Height 162.6 cm (5' 4 ) 10/15/2016 2:57 PM CDT Body Mass Index 39.65 10/15/2016 2:57 PM CDT Plan of Treatment Health Maintenance Due Date Last Done Comments DTAP/TDAP/TD VACCINES (1 - Tdap) 1981 HPV/Cotest (21-29) 1983 CERVICAL CANCER SCREENING 1992 HPV/Cotest (30-65) 1992 PAP SMEAR 1992 BREAST CANCER SCREENING 2002 COLORECTAL SCREENING 2007 Colorectal Cancer Screening 2007 FIT-DNA Q 3 years 2007 FIT/FOBT Q 1 year 2007 Flex Sig/CT Colonography Q 5 years 2007 ZOSTER VACCINE (1 of 2) 2012 INFLUENZA VACCINE (#1) 2024 RSV VACCINE (60+ or ) (1 - 1-dose 75+ series) 2037 Insurance [facility] [address] OPT[employer] PPO [id number] Care Teams Fire Adjuster Relationship Specialty Start Date End Date Frederick Estrada MD PCP - General Family Practice 05/10/16
--- OUTSIDE RECORDS SUMMARY | 2024-11-03 07:07 | XMS_ITS | Clinical Summary ---
Author Organization [facility] Address [address] [facility] [place] [address] Care Team Providers Care Ethics Officer Name Role Phone Frederick Estrada MD Primary Care Provider + Mili Oliva RN Unavailable [phone] Mike Pulido MD Unavailable Unavailabl e Wenceslao Decker MD Unavailable [phone] Glenn Evans MD Unavailable [phone] Izzy Salguero RN Unavailable Unavailable Source Comments [facility],non-owned Affiliates and Associated Physician Practices is amultiple site organization consisting of ambulatory clinics and hospital sitesin [place], [place], [place] and [place]. This disclosure is being madepursuant to the Care Everywhere program and may not contain all information available regarding this patient. Last updated 18.[facility] Allergies Active Allergy Reactions Criticality Noted Date Comments adhesive glue [Other] Rash Medium 06/11/2019 Large rash from glue after removal of her port. At [facility] Medications * Be aware that medications may not be up to date on this document. Alwaysverify current medications with the patient. simvastatin (ZOCOR) 20 MG tablet Take 1 (one) tablet by mouth once daily 0 Active lisinopril-hydr oCHLOROthiazide (Prinzide; Zestoretic) 20-12.5 MG tablet Take 1 (one) tablet by mouth once daily 2 Active glimepiride (Amaryl) 2 MG tablet TAKE 1 TABLET BY MOUTH ONCE DAILY IN THE MORNING WITH BREAKFAST 3 Active lisinopril (Prinivil; Zestril) 30 MG tablet Take 1 (one) tablet by mouth once daily 3 Active metFORMIN ER 24hr (Glucophage XR) 500 MG tablet Take 2 (two) tablets by mouth once daily 3 Active anastrozole (Arimidex) 1 MG tablet TAKE 1 TABLET BY MOUTH ONCE DAILY IN THE MORNING 30 tablet 3 4 Active meloxicam (Mobic) 7.5 MG tablet Take 1 (one) tablet by mouth once daily 4 Active traMADol (Ultram) 50 MG tablet Take 1 (one) tablet by mouth every 12 hours as needed FOR PAIN 4 Active Active Problems Problem Noted Date Diagnosed Date Recurrent carcinoma of ovary, 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 (F LUZONE; FLULAVAL; FLUARIX; AFLURIA QUADRIVALENT; 6MO+), 0.5 ML (IIV4) 04/03/2016 Social History Tobacco Use Types Packs/Day Years Used Date Smoking Tobacco: Never Smokeless Tobacco: Never Alcohol Use Standard Drinks/Week Comments No 0 (1 standard drink = 0.6 oz pur e alcohol) AUDIT-C Answer Date Recorded Frequency of Alcohol Consumption Never 10/12/2019 Average Number of Drinks Not on file 020 Frequency of Binge Drinking Never 12/2019 PHQ-2 Answer Date Recorded Patient Health Questionnaire-2 Score 0 06/10/2024 Comments No Sex and Gender Information Value Date Recorded Sex Assigned at Female 05/09/2022 12:08 PM CDT Legal Sex Female 7:55 AM CDT Gender Identity Female 05/09/2022 12:08 PM CDT Sexual Orientation Not on file Last Filed Vital Signs Vital Sign Reading Time Taken Comments Blood Pressure 180/120 06/11/2024 11:11 AM COMPUTER PROGRAMMER CHIEF Pulse 95 05/24/2022 8:54 AM COMPUTER PROGRAMMER CHIEF Temperature 36.3 C (97.3 F) 09/23/2020 10:53 AM CDT Respiratory Rate 18 06/13/2019 3:08 PM COMPUTER PROGRAMMER CHIEF Oxygen Saturation 98% 05/24/2022 8:54 AM COMPUTER PROGRAMMER CHIEF Inhaled Oxygen Concentration - - Weight 109 kg (240 lb 3.2 oz) 06/11/2024 9:50 AM COMPUTER PROGRAMMER CHIEF Height 160 cm (5' 3 ) 06/11/2024 9:50 AM COMPUTER PROGRAMMER CHIEF Body Mass Index 42.55 06/11/2024 9:50 AM COMPUTER PROGRAMMER CHIEF Plan of Treatment Upcoming Encounters Date Type Department Care Team (Late st Contact Info) Description 06/14/2025 10:00 AM COMPUTER PROGRAMMER CHIEF Office Visit [facility] [address] [place] [address] Rene Gross MD [address] [place] [address] Health Maintenance Due Date Last Done Comments COLOGUARD (AGES 45-75) - COLON CA SCREENING [address] COLONOGRAPHY - COLON CA SCREENING 1962 FIT - COLON CA SCREENING 1962 FLEX SIG - COLON CA SCREENING 1962 HIV SCREENING 1977 HEPATITIS C SCREENING 03/02/1980 DTAP/TDAP/TD VACCINES (1 - Tdap) 1981 PNEUMOCOCCAL VACCINE 50+ (1 of 1 - PCV) 2012 ZOSTER VACCINE (1 of 2) 2012 Respiratory Syncytial Virus (RSV) Vaccine Pt: or over 60 yrs (1 - Risk 60-74 years 1-dose series) 2022 SCREENING FOR DIABETES 06/13/2023 9, 06/13/2019, 06/13/2019, Additional history exists COVID-19 VACCINE ( season) 2024 06/13/2021, 05/23/2021 COLONOSCOPY - COLON CA SCREENING 04/01/2024 04/01/2014 (Done Outside Per Report) Colorectal Cancer Screening 04/01/2024 DEPRESSION SCREENING 07/08/2024 06/11/2024, 06/13/20 23 MAMMOGRAM 08/01/2024 08/01/2022 INFLUENZA VACCINE (Season Ended) 2025 03/23/2020, 04/03/2016 HEPATITIS B VACCINE Aged Out No longe r eligible based on patient's age to complete this topic HIB VACCINE Aged Out No longer eligi ble based on patient's age to complete this topic HPV VACCINE Aged Out No longer eligi ble based on patient's age to complete this topic MENINGOCOCCAL (Group B) VACCINE SHARED DECISION-MAKING Aged Out No longer eligible based on patient's age to complete this topic MENINGOCOCCAL GROUPS A/C/Y/W VACCINE Aged Out No longer eligible based on patient's age to complete this topic Medical Devices Implanted Type Area Parts Administrator Device Identifier Shelf Expiration Date Model / Serial / Lot Mesh Srg Sprmsh Ip Sepra 12x8in Rect Mfl Implanted:Qty : 1 on 06/11/2019 by Mike Pulido MD at [facility] Mesh N/A: Abdomen [employer] 12/02/2020 [id number] / / [id number] Port Implt Pwr Inj Plas Hub 8fr Implanted:Qty : 1 on 03/30/2016 by Mike Pulido MD at [facility] Right: [employer] 08/04/2017 [id number] / / [id number] Procedures Procedure Name Priority Date/Time Associated Diagnosis Comments MAMMOGRAM Routine 08/01/2022 BASIC METABOLIC PANEL (CALCIUM TOTAL) AM Draw 06/13/2019 2:29 AM COMPUTER PROGRAMMER CHIEF Abdominal wall mass from Last 3 Months or Most Recently Relevant to Health Maintenance Results * MAMMOGRAM (08/01/2022) Anatomical Region Laterality Modality Other Moshe Pearson MD SCANNING ONLY Final Result * (ABNORMAL) BASIC METABOLIC PANEL (CALCIUM TOTAL) (06/13/2019 2:29 AM COMPUTER PROGRAMMER CHIEF) Glucose 136(H) 70 - 105 mg/dL 06/13/2019 3:[address] [facility] Sodium 139 136 - 145 mmol/L 06/13/2019 3:[address] [facility] Potassium 3.6 3.5 - 4.7 mmol/L 06/13/2019 3:[address] [facility] Chloride 104 98 - 107 mmol/L 06/13/2019 3:[address] [facility] CO2 28 23 - 31 mmol/L 06/13/2019 3:[address] [facility] Calcium 8.4 8.4 - 10.4 mg/dL 06/13/2019 3:[address] [facility] Anion Gap 7(L) 8 - 16 mmol/L 06/13/2019 3:[address] [facility] BUN 20 9.8 - 20.1 mg/dL 06/13/2019 3:[address] [facility] Creatinine 0.85 0.57 - 1.11 mg/dL 06/13/2019 3:[address] [facility] eGFR by MDRD >60 >60 mL/min/1.7 3m2 06/13/2019 3:[address] [facility] eGFR by MDRD >60 >60 mL/min/1.7 3m2 06/13/2019 3:[address] [facility] Blood BLOOD SPECIMEN / Unknown Lab Venipuncture / Unknown 06/13/2019 2:29 AM COMPUTER PROGRAMMER CHIEF 06/13/2019 2:57 AM [facility] [email or web address]] Inocencia Marinelli MD LAB - CHEMISTRY ORDERABLES Final Result [facility] [address] [place] [address] from Last 3 Months or Most Recently Relevant to Health Maintenance Insurance [facility] Advance Directives * Full Code (Latest Code Status on File) Date Activated Date Inactivated Comments 12/23/2017 9:33 PM 12/24/2017 1:38 PM * Full Code Date Activated Date Inactivated Comments 03/30/2016 5:36 PM 04/03/2016 1:03 PM Care Teams Ethics Officer Relationship Specialty Start Date End Date Frederick Estrada MD [address] [place] [id number] PCP - General Family Medicine 03/29/16 Mili Oliva, RN [address] [address] Residential Property Consultant 04/02/16 Mike Pulido MD [address] [place] [address] Referring Physician Surgical Oncology 05/04/16 Wenceslao Decker MD [address] [place] [address] Radiation Oncologist Radiation Oncology 05/04/16 Glenn Evans MD [address] [address] Shared Care Physician Medical Oncology 05/09/16 Izzy Salguero, RN Registered Nurse 12/23/17
--- OUTSIDE RECORDS SUMMARY | 2024-11-03 07:07 | XMS_ITS | Clinical Summary ---
Author Organization [facility] Address [address], [address] [address] Phone Care Team Providers Care Instructional Manager Name Role Phone Frederick Estrada MD Primary Care Provider + Allergies No known active allergies Medications lisinopril-hydroc hlorothiazide (PRINZIDE, ZESTORETIC) 20-12.5 MG Tablet daily. Ac tive Active Problems Problem Noted Date Diagnosed Date HTN (hypertension) Social History Tobacco Use Types Packs/Day Years Used Date Smoking Tobacco: Never Assessed Comments Unknown Sex and Gender Information Value Date Recorded Sex Assigned at Not on file Legal Sex Female 12:01 AM CDT Gender Identity Not on file Sexual Orientation Not on file Plan of Treatment Health Maintenance Due Date Last Done Comments Hepatitis C Virus (HCV) Screening 1962 TdaP Immunization 1962 Pap Smear 1983 Cervical Cancer Screening (CCS) 1992 HPV/Cotest 1992 Cologuard 2012 Immunochemical Fecal Occult Blood 2012 Mammogram 2012 Pneumococcal Immunization (5 0+ years) (1 of 1 - PCV) 2012 Zoster Immunization (1 of 2) 2012 Influenza Immunization (#1) 2024 SARS-COV-2 Immunization (1 - 2023-25 season) 2024 Colonoscopy 03/17/2027 03/17/2020, 04/01/2014 Colorectal Cancer Screening 03/17/2027 Respiratory Syncytial Virus (RSV) Immunization (Adult) (1 - 1-dose 75+ series) 2037 03/17/2020, 04/01/2014 Hepatitis B Immunization Aged Out No longer eligible based on patient's age to complete this topic Meningococcal Immunization (ACWY) Aged Out No longer eligible b ased on patient's age to complete this topic Pneumococcal Immunization Combined Aged Out No longer eligible b ased on patient's age to complete this topic Rotavirus Immunization Aged Out No lo nger eligible based on patient's age to complete this topic Procedures Procedure Name Priority Date/Time Associated Diagnosis Comments COLONOSCOPY Routine 03/17/2020 from Last 3 Months or Most Recently Relevant to Health Maintenance Results * HM COLONOSCOPY (03/17/2020) Aftab Jiang DO PROCEDURE/MINOR SURGICAL ORDERA BLES Final Result from Last 3 Months or Most Recently Relevant to Health Maintenance Insurance Care Teams Instructional Manager Relationship Specialty Start Date End Date Frederick Estrada MD [address] [place] [address] PCP - General Family Medicine 02/29/20
[2024-11-03 07:25] LABS: Estimated Glomerular Filt Rate 42
== END 2024-11-03 07:03 | disposition home or self-care (01) ==
PROVIDERS: PCP Family Medicine Adolescent Medicine
DX: C56.1 Malignant neoplasm of right ovary (principal); K86.89 Other specified diseases of pancreas; K76.0 Fatty (change of) liver, not elsewhere classified
CPT/HCPCS: 71260; 74177; Q9967

== ENCOUNTER 2024-11-12 11:08 | Outpatient (CLI) | payer OTHER, SELFPAY ==
--- NOTE | ~2024-11-12 | XR_ITS ---
Right Knee Technique: AP, lateral, and sunrise views were obtained. Clinical History: Arthritis COMPARISON: 03/11/2024 Findings: No fracture or dislocation is seen. There is medial compartment narrowing. There is minimal osteophyte formation at the knee. Soft tissues are unremarkable. No joint effusion is seen. Impression: Degenerative change, as above. Reviewed, dictated and finalized at location . Impression: Degenerative change, as above.
--- OUTSIDE RECORDS SUMMARY | 2024-11-12 11:19 | XMS_ITS | Clinical Summary ---
Author Organization [facility] Address [address] [place] [address] Care Team Providers Care High School Admissions Representative Name Role Phone Frederick Estrada MD Primary Care Provider + Mili Oliva RN Unavailable [phone] Mike Pulido MD Unavailable Unavailabl e Wenceslao Decker MD Unavailable [phone] Glenn Evans MD Unavailable [phone] Izzy Salguero RN Unavailable Unavailable Source Comments [facility],non-owned Affiliates and Associated Physician Practices is amultiple site organization consisting of ambulatory clinics and hospital sitesin [place], [place], [place] and [place]. This disclosure is being madepursuant to the Care Everywhere program and may not contain all information available regarding this patient. Last updated 18.[facility] Allergies Active Allergy Reactions Criticality Noted Date Comments adhesive glue [Other] Rash Medium 06/11/2019 Large rash from glue after removal of her port. At [facility] Medications * Be aware that medications may [...] Comments Blood Pressure 180/120 06/11/2024 11:11 AM MARKETING ROTATION ASSOCIATE Pulse 95 05/24/2022 8:54 AM MARKETING ROTATION ASSOCIATE Temperature 36.3 C (97.3 F) 09/23/2020 10:53 AM CDT Respiratory Rate 18 06/13/2019 3:08 PM MARKETING ROTATION ASSOCIATE Oxygen Saturation 98% 05/24/2022 8:54 AM MARKETING ROTATION ASSOCIATE Inhaled Oxygen Concentration - - Weight 109 kg (240 lb 3.2 oz) 06/11/2024 9:50 AM MARKETING ROTATION ASSOCIATE Height 160 cm (5' 3 ) 06/11/2024 9:50 AM MARKETING ROTATION ASSOCIATE Body Mass Index 42.55 06/11/2024 9:50 AM MARKETING ROTATION ASSOCIATE Plan of Treatment Upcoming Encounters Date Type Department Care Team (Late st Contact Info) Description 06/14/2025 10:00 AM MARKETING ROTATION ASSOCIATE Office Visit [facility] [address] [place] [address] Rene Gross MD [address] [place] [address] Health Maintenance Due Date Last Done Comments [...] this topic Medical Devices Implanted Type Area Bellows Tester Device Identifier Shelf Expiration Date Model / Serial / Lot Mesh Srg Sprmsh Ip Sepra 12x8in Rect Mfl Implanted:Qty : 1 on 06/11/2019 by Mike Pulido MD at [facility] Mesh N/A: Abdomen [employer] 12/02/2020 [id number] / / [id number] Port Implt Pwr Inj Plas Hub 8fr Implanted:Qty : 1 on 03/30/2016 by Mike Pulido MD at [facility] Right: [employer] 08/04/2017 [id number] / / [id number] Procedures Procedure Name Priority Date/Time Associated Diagnosis Comments IMAGING/RADIOLOGY/X RAY RESULTS ORDER 11/03/2024 MAMMOGRAM Routine 08/01/2022 BASIC METABOLIC PANEL (CALCIUM TOTAL) AM Draw 06/13/2019 2:29 AM MARKETING ROTATION ASSOCIATE Abdominal wall mass from Last 3 Months or Most Recently Relevant to Health Maintenance Results * IMAGING/RADIOLOGY/XRAY RESULTS ORDER (11/03/2024) Anatomical Region Laterality Modality Other 11/03/2024 Narrative 11/03/2024 Ordered by an unspecified provider. us Scanned Document IMAGING Final Result * MAMMOGRAM (08/01/2022) Anatomical Region Laterality Modality Other us Moshe Pearson MD SCANNING ONLY Final Result * (ABNORMAL) BASIC METABOLIC PANEL (CALCIUM TOTAL) (06/13/2019 2:29 AM MARKETING ROTATION ASSOCIATE) Glucose 136(H) 70 - 105 mg/dL 06/13/2019 3:[address] [facility] Sodium 139 136 - 145 mmol/L 06/13/2019 3:[address] [facility] Potassium 3.6 3.5 - 4.7 mmol/L 06/13/2019 3:[address] [facility] Chloride 104 98 - 107 mmol/L 06/13/2019 3:[address] [facility] CO2 28 23 - 31 mmol/L 06/13/2019 3:[address] [facility] Calcium 8.4 8.4 - 10.4 mg/dL 06/13/2019 3:[address] [facility] Anion Gap 7(L) 8 - 16 mmol/L 06/13/2019 3:[address] [facility] BUN 20 9.8 - 20.1 mg/dL 06/13/2019 3:[address] [facility] Creatinine 0.85 0.57 - 1.11 mg/dL 06/13/2019 3:[address] [facility] eGFR by MDRD >60 >60 mL/min/1.7 3m2 06/13/2019 3:[address] [facility] eGFR by MDRD >60 >60 mL/min/1.7 3m2 06/13/2019 3:[address] [facility] Blood BLOOD SPECIMEN / Unknown Lab Venipuncture / Unknown 06/13/2019 2:29 AM MARKETING ROTATION ASSOCIATE 06/13/2019 2:57 AM MARKETING ROTATION ASSOCIATE us Inocencia Marinelli MD LAB - CHEMISTRY ORDERABLES Final Result [facility] [address] [place] [id number] from Last 3 Months or Most Recently Relevant to Health Maintenance Insurance CARE Advance Directives * Full Code (Latest Code Status on File) Date Activated Date Inactivated Comments 12/23/2017 9:33 PM 12/24/2017 1:38 PM * Full Code Date Activated Date Inactivated Comments 03/30/2016 5:36 PM 04/03/2016 1:03 PM Care Teams High School Admissions Representative Relationship Specialty Start Date End Date Frederick Estrada MD [address] [id number] PCP - General Family Medicine 03/29/16 Mili Oliva, RN [address] [address] Mechanical Project Manager 04/02/16 Mike Pulido MD [address] [address] Referring Physician Surgical Oncology 05/04/16 Wenceslao Decker MD [address] [address] Radiation Oncologist Radiation Oncology 05/04/16 Glenn Evans MD [address] [place] [id number] Shared Care Physician Medical Oncology 05/09/16 Izzy Salguero, RN Registered Nurse 12/23/17
--- OUTSIDE RECORDS SUMMARY | 2024-11-12 11:19 | XMS_ITS | Clinical Summary ---
Author Organization [facility] Address [address] [place] [address] Care Team Providers Care Plexiglas Former Name Role Phone Frederick Estrada MD Primary Care Provider [phone] Allergies No known active allergies Medications ondansetron [...] (1 - 1-dose 75+ series) 2037 Insurance [facility] J[address]DA [address] OPTIONS PPO [id number] Care Teams Plexiglas Former Relationship Specialty Start Date End Date Frederick Estrada MD PCP - General Family Practice 05/10/16
--- OUTSIDE RECORDS SUMMARY | 2024-11-12 11:19 | XMS_ITS | Encounter Summary ---
Author Organization [facility] Address [address] [place] [address] Care Team Providers Care Division Chair Name Role Phone Frederick sEtrada MD Primary Care Provider [phone]- [phone] Encounter Details Date Type Department Care Team (Late st Contact Info) Description 02/12/2018 Chart Note [facility] Radiation Therapy [address] [place] [address] [place] [address] [place] [address] Social History Tobacco Use Types [...] on filedocumented in this encounter Care Teams Division Chair Relationship Specialty Start Date End Date Frederick Estrada MD PCP - General Family Practice 05/10/16 documented as of this encounter
--- OUTSIDE RECORDS SUMMARY | 2024-11-12 11:19 | XMS_ITS | Clinical Summary ---
Author Organization [facility] Address [address], [address] [address] Phone Care Team Providers Care Oracle Soa Consultant Name Role Phone Frederick Estrada MD Primary [...] Relevant to Health Maintenance Insurance Care Teams Oracle Soa Consultant Relationship Specialty Start Date End Date Frederick Estrada MD [address] [place] [address] PCP - General Family Medicine 02/29/20
--- NOTE | 2024-11-12 11:31 | ECG_ITS ---
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
[2024-11-12 11:43] LABS: Basophils Percent Auto 0.7 % (0.2-1.2); Eosinophils Absolute Auto 0.1 K/mm3 (0-0.3); Eosinophils Percent Auto 1.5 % (0-4.4); Hematocrit 42.9 % (37.0-47.0); Hemoglobin 13.8 g/dL (12.0-15.0); Immature Granulocyte Absolute 0.03 K/mm3 (0.00-0.031); Immature Granulocyte Percent A 0.5 % (0-0.5); Lymphocytes Absolute Auto 1.57 K/mm3 (0.9-3.2); Lymphocytes Percent Auto 28.5 % (18.3-44.2); Mean Corpuscular HGB Conc 32.2 g/dl (32-36); Mean Corpuscular Hemoglobin 28.9 pg (26-34); Mean Corpuscular Volume 89.7 fl (80-100); Monocytes Absolute Auto 0.3 K/mm3 (0.1-0.6); Monocytes Percent Auto 6.2 % (2.6-8.5); Neutrophils Absolute Auto 3.4 K/mm3 (1.3-6.7); Neutrophils Percent Auto 62.6 % (45.5-73.1); Platelet Count Result 172 k/mm3 (150-375); Red Blood Count 4.78 M/mm3 (4.2-5.4); Red Cell Distribution Width 13.1 % (11.5-14.5); White Blood Count 5.5 K/mm3 (4.5-10.0)
[2024-11-12 11:56] LABS: Anion Gap 9 mmol/L (4-12); Blood Urea Nitrogen 24 mg/dL (7-17); Calcium 9.6 mg/dL (8.4-10.2); Carbon Dioxide 30 mmol/L (22-30); Chloride 101 mmol/L (98-107); Estimated Glomerular Filt Rate 42; Glucose 191 mg/dL (65-110); Potassium 4.2 mmol/L (3.4-5.0); Sodium 140 mmol/L (137-145)
[2024-11-12 12:34] LABS: Hemoglobin A1C 7.7 % (<5.7)
== END 2024-11-12 11:09 | disposition home or self-care (01) ==
LOC: ANHLAB 11:10
PROVIDERS: PCP Family Medicine Adolescent Medicine; Visit Provider Nurse Practitioner Family
DX: E11.65 Type 2 diabetes mellitus with hyperglycemia (principal); R79.89 Other specified abnormal findings of blood chemistry; I10 Essential (primary) hypertension; R53.83 Other fatigue; M17.11 Unilateral primary osteoarthritis, right knee
CPT/HCPCS: 36415; 73564; 80048; 83036; 85025; 93005

== ENCOUNTER 2024-11-14 07:44 | Outpatient (CLI) | payer OTHER, SELFPAY ==
--- OUTSIDE RECORDS SUMMARY | 2024-11-14 07:48 | XMS_ITS | Clinical Summary ---
Author Organization [facility] Address [address] [place] [address] [place] [address] Care Team Providers Care Information Systems Technician Name Role Phone Frederick Estrada MD Primary Care Provider [phone]- [phone] Allergies No known active allergies Medications ondansetron [...] 1-dose 75+ series) 2037 Insurance [facility] [address]DA [address] OPTIONS PPO [id number] Care Teams Information Systems Technician Relationship Specialty Start Date End Date Frederick Estrada MD PCP - General Family Practice 05/10/16
--- OUTSIDE RECORDS SUMMARY | 2024-11-14 07:48 | XMS_ITS | Clinical Summary ---
Author Organization [facility] [employer] Address [address] [facility] [place] [address] Care Team Providers Care Associate Field Service Engineer Name Role Phone Frederick Estrada MD Primary Care Provider + Mili Oliva RN Unavailable [phone] Mike Pulido MD Unavailable Unavailabl e Wenceslao Decker MD Unavailable [phone] Glenn Evans MD Unavailable [phone] Izzy Salguero RN Unavailable Unavailable Source Comments [facility],non-owned Affiliates and Associated Physician Practices is amultiple site organization consisting of ambulatory clinics and hospital sitesin [place], [place], [place] and [place]. This disclosure is being madepursuant to the Care Everywhere program and may not contain all information available regarding this patient. Last updated 18.[facility] Allergies Active Allergy Reactions Criticality Noted Date Comments adhesive glue [Other] Rash Medium 06/11/2019 Large rash from glue after removal of her port. At [facility] Medications * Be aware that medications may [...] Comments Blood Pressure 180/120 06/11/2024 11:11 AM MINIATURE TRAIN DRIVER Pulse 95 05/24/2022 8:54 AM MINIATURE TRAIN DRIVER Temperature 36.3 C (97.3 F) 09/23/2020 10:53 AM CDT Respiratory Rate 18 06/13/2019 3:08 PM MINIATURE TRAIN DRIVER Oxygen Saturation 98% 05/24/2022 8:54 AM MINIATURE TRAIN DRIVER Inhaled Oxygen Concentration - - Weight 109 kg (240 lb 3.2 oz) 06/11/2024 9:50 AM MINIATURE TRAIN DRIVER Height 160 cm (5' 3 ) 06/11/2024 9:50 AM MINIATURE TRAIN DRIVER Body Mass Index 42.55 06/11/2024 9:50 AM MINIATURE TRAIN DRIVER Plan of Treatment Upcoming Encounters Date Type Department Care Team (Late st Contact Info) Description 06/14/2025 10:00 AM MINIATURE TRAIN DRIVER Office Visit [facility] - COMPACTING MACHINE OPERATOR/TENDER [address] [place] [address] Rene Gross MD [address] [place] [address] Health Maintenance Due Date Last Done Comments [...] this topic Medical Devices Implanted Type Area Motor Transport Inspector Device Identifier Shelf Expiration Date Model / Serial / Lot Mesh Srg Sprmsh Ip Sepra 12x8in Rect Mfl Implanted:Qty : 1 on 06/11/2019 by Mike Pulido MD at [facility] Mesh N/A: Abdomen [employer] 12/02/2020 [id number] / / [id number] Port Implt Pwr Inj Plas Hub 8fr Implanted:Qty : 1 on 03/30/2016 by Mike Pulido MD at [facility] Right: [employer] 08/04/2017 [id number] / / [id number] Procedures Procedure Name Priority Date/Time Associated Diagnosis Comments IMAGING/RADIOLOGY/X RAY RESULTS ORDER 11/03/2024 MAMMOGRAM Routine 08/01/2022 BASIC METABOLIC PANEL (CALCIUM TOTAL) AM Draw 06/13/2019 2:29 AM MINIATURE TRAIN DRIVER Abdominal wall mass from Last 3 Months [...] METABOLIC PANEL (CALCIUM TOTAL) (06/13/2019 2:29 AM MINIATURE TRAIN DRIVER) Glucose 136(H) 70 - 105 mg/dL 06/13/2019 3:36 AM [facility] Sodium 139 136 - 145 mmol/L 06/13/2019 3:36 AM [facility] Potassium 3.6 3.5 - 4.7 mmol/L 06/13/2019 3:36 AM [facility] Chloride 104 98 - 107 mmol/L 06/13/2019 3:36 AM [facility] CO2 28 23 - 31 mmol/L 06/13/2019 3:36 AM [facility] Calcium 8.4 8.4 - 10.4 mg/dL 06/13/2019 3:36 AM [facility] Anion Gap 7(L) 8 - 16 mmol/L 06/13/2019 3:36 AM [facility] BUN 20 9.8 - 20.1 mg/dL 06/13/2019 3:36 AM [facility] Creatinine 0.85 0.57 - 1.11 mg/dL 06/13/2019 3:36 AM [facility] eGFR by MDRD >60 >60 mL/min/1.7 3m2 06/13/2019 3:36 AM [facility] eGFR by MDRD >60 >60 mL/min/1.7 3m2 06/13/2019 3:36 AM [facility] Blood BLOOD SPECIMEN / Unknown Lab Venipuncture / Unknown 06/13/2019 2:29 AM MINIATURE TRAIN DRIVER 06/13/2019 2:57 AM MINIATURE TRAIN DRIVER us Inocencia Marinelli MD LAB - CHEMISTRY ORDERABLES Final Result [facility] [address] [place] [address] from Last 3 Months or Most Recently Relevant to Health Maintenance Insurance CARE Advance Directives * Full Code (Latest Code Status on File) Date Activated Date Inactivated Comments 12/23/2017 9:33 PM 12/24/2017 1:38 PM * Full Code Date Activated Date Inactivated Comments 03/30/2016 5:36 PM 04/03/2016 1:03 PM Care Teams Associate Field Service Engineer Relationship Specialty Start Date End Date Frederick Estrada MD [address] [id number] PCP - General Family Medicine 03/29/16 Mili Oliva, RN [address] [address] Sourcing Coordinator 04/02/16 Mike Pulido MD [address] [address] Referring Physician Surgical Oncology 05/04/16 Wenceslao Decker MD [address] [address] Radiation Oncologist Radiation Oncology 05/04/16 Glenn Evans MD [address] [place] [address] Shared Care Physician Medical Oncology 05/09/16 Izzy Salguero, RN Registered Nurse 12/23/17
--- OUTSIDE RECORDS SUMMARY | 2024-11-14 07:48 | XMS_ITS | Clinical Summary ---
Author Organization [facility] Address [address], [address] [address] Phone Care Team Providers Care Smog Technician Name Role Phone Frederick Estrada MD [...] Relevant to Health Maintenance Insurance Care Teams Smog Technician Relationship Specialty Start Date End Date Frederick Estrada MD [address] [place] [address] PCP - General Family Medicine 02/29/20
--- OUTSIDE RECORDS SUMMARY | 2024-11-14 07:48 | XMS_ITS | Encounter Summary ---
Author Organization [employer] Address [address] [place] [address] Care Team Providers Care Writing Tutor Name Role Phone Frederick Estrada MD Primary Care Provider [phone] Encounter Details Date Type Department Care Team (Late st Contact Info) Description 02/12/2018 Chart Note [facility] Radiation Therapy [address] [place] [address] [place] [address] [place] [address] Social History Tobacco Use Types [...] on filedocumented in this encounter Care Teams Writing Tutor Relationship Specialty Start Date End Date Frederick Estrada MD PCP - General Family Practice 05/10/16 documented as of this encounter
[2024-11-14 08:46] LABS: Add Urine Microscopic? YES; Appearance Urine Cloudy (Clear); Bacteria Urine 4+ /hpf; Bilirubin Urine Negative (Negative); Blood Urine Trace (Negative); Color Urine Yellow (Yellow); Glucose Urine UA 2+ mg/dL (Negative); Ketones Urine Trace mg/dL (Negative); Leukocyte Esterase Ur 2+ LEU/UL (Negative); Need Manual Microscopic Reviewed; Nitrate Urine Positive (Negative); Non Pathogenic Casts 0-2; Protein Urine Negative (Negative); Specific Grav Ur 1.022 (1.001-1.035); Squamous Epithelial Cell Urine Occasional /hpf (Few); Urobilinogen Urine 0.2 mg/dL (<2.0); WBC Urine >100 /hpf (0-3)
== END 2024-11-14 07:45 | disposition home or self-care (01) ==
LOC: ANHLAB 07:46
PROVIDERS: PCP Family Medicine Adolescent Medicine; Visit Provider Nurse Practitioner Family
DX: E11.65 Type 2 diabetes mellitus with hyperglycemia (principal); R53.83 Other fatigue; R79.89 Other specified abnormal findings of blood chemistry
CPT/HCPCS: 81001; 87086; 87186

== ENCOUNTER 2024-11-18 12:45 | Outpatient (CLI) | payer OTHER, SELFPAY ==
--- NOTE | ~2024-11-18 | DEXA_ITS ---
Bone Density Report Name: ANEESH LEAL Age: 64 Sex: Female Ethnicity: White Date of : 1960 Indication: postmenopausal; screening for osteoporosis; cancer; hysterectomy; Referring Provider: UNKNOWN, UNKNOWN Study: Bone densitometry was performed. Exam Date: November 18, 2024 Accession number: [id number] Bone Density: Region BMD T-score Z-score Classification AP Spine(L1-L4) 0.922 -1.1 0.5 Osteopenia Femoral Neck (Left) 0.670 -1.6 -0.2 Osteopenia Total Hip (Left) 1.142 1.6 2.7 Normal Femoral Neck (Right) 0.720 -1.2 0.2 Osteopenia Total Hip (Right) 1.031 0.7 1.8 Normal Total Hip Mean 1.087 1.2 2.3 Normal World Health Organization criteria for BMD impression classify patients as: Normal (T-score at or above -1.0), Osteopenia (T-score between -1.0 and -2.5), or Osteoporosis (T-score at or below -2.5). 10-year Fracture Risk(1): Major Osteoporotic Fracture 7.8% Hip Fracture 0.7% Reported Risk Factors: [place] (), Neck BMD=0.670, BMI=40.7 (1) FRAX(R) Version 3.08. Fracture probability calculated for an untreated patient. Fracture probability may be lower if the patient has received treatment. Previous Exams: Region Exam Age BMD T-score BMD Change BMD Change Date g/cm2 vs Baseline vs Previous AP Spine (L1-L4) 11/18/2024 64 0.922 -1.1 -0.073 (-7.3%) -0.073 (-7.3%) 06/13/2017 57 0.995 -0.5 Total Hip(Left) 11/18/2024 64 1.142 1.6 -0.007 (-0.6%) -0.007 (-0.6%) 06/13/2017 57 1.149 1.7 Total Hip(Right) 11/18/2024 64 1.031 0.7 -0.032 (-3.1%) -0.032 (-3.1%) 06/13/2017 57 1.063 1.0 *Denotes significance at 95% confidence level, LSC for AP Spine = 0.022 g/cm2, LSC for Total Hip = 0.027 g/cm2 Clinical Information Provided by Patient: Has the following medical conditions: Cancer, Hysterectomy Patient maximum height was 64.0 Menopause Age: 47 No regular weight bearing exercise Drinks caffeinated beverages Onset of menses at age 19 Number of children 2 Impression: The patient has low bone mass, based on the Left Femoral Neck T-score. The patient has an estimated ten-year risk of hip fracture of 0.7% and an estimated ten-year risk of major fracture of 7.8%, based on the WHO FRAX algorithm. The BMD for the AP Spine (L1-L4) decreased, changing by -7.3% since the last DXA exam. The BMD for the Total Hip(Right) decreased, changing by -3.1% since the last DXA exam. Discussion: BONE DENSITY IS LOW AT ONE OR MORE SKELETAL SITES. This patient's lowest T-score is low at one or more skeletal sites. It meets the World Health Organization's (WHO) criteria for “low bone mass” (T-score between -1.0 and -2.5). The patient's 10-year risk of fracture as calculated by FRAX is less than the threshold where pharmacological therapy is recommended by the National Osteoporosis Foundation (NOF). However, all treatment decisions require clinical judgment and consideration of individual patient factors, including patient preferences, comorbidities, previous drug use, risk factors not captured in the FRAX model (e.g., frailty, falls, vitamin D deficiency, increased bone turnover, interval significant decline in bone density) and possible under or overestimation of fracture risk by FRAX. The patient should follow a healthful lifestyle (good nutrition with adequate calcium and vitamin D, and appropriate weight-bearing exercise). Follow-Up: Consider repeating this study in 2 years to reassess this patient's status, or sooner if there is some new clinical indication. Reported by: MANJEET on 11/18/2024 1:28:00 PM. Reviewed, dictated and finalized at location A.
--- OUTSIDE RECORDS SUMMARY | 2024-11-18 12:59 | XMS_ITS | Encounter Summary ---
Author Organization [employer] [facility] Address [address] [place] [address] Care Team Providers Care Head Rose Grower Name Role Phone Frederick Estrada MD Primary Care Provider [phone] Encounter Details Date Type Department Care Team (Late st Contact Info) Description 02/12/2018 Chart Note [facility] Radiation Therapy [address] [place] [address] [place] [address] [place] [address] Social History Tobacco Use Types [...] on filedocumented in this encounter Care Teams Head Rose Grower Relationship Specialty Start Date End Date Frederick Estrada MD PCP - General Family Practice 05/10/16 documented as of this encounter
--- OUTSIDE RECORDS SUMMARY | 2024-11-18 12:59 | XMS_ITS | Clinical Summary ---
Author Organization [facility] Address [address] [facility] [place] [address] Care Team Providers Care Duplicator Punch Operator Name Role Phone Frederick Estrada MD Primary Care Provider [phone] Allergies No known active allergies Medications ondansetron [...] (1 - 1-dose 75+ series) 2037 Insurance [facility] [address]DA [address] OPTIONS PPO [id number] Care Teams Duplicator Punch Operator Relationship Specialty Start Date End Date Frederick Estrada MD PCP - General Family Practice 05/10/16
--- OUTSIDE RECORDS SUMMARY | 2024-11-18 13:00 | XMS_ITS | Clinical Summary ---
Author Organization [facility] [employer] Address [address] [place] [address] Care Team Providers Care High School Foreign Language Teacher Name Role Phone Frederick Estrada MD Primary Care Provider + Mili Oliva RN Unavailable [phone] Mike Pulido MD Unavailable Unavailabl e Wenceslao Decker MD Unavailable [phone] Glenn Evans MD Unavailable [phone] Izzy Salguero RN Unavailable Unavailable Source Comments [facility],non-owned Affiliates and Associated Physician Practices is amultiple site organization consisting of ambulatory clinics and hospital sitesin [place], [place], [place] and [place]. This disclosure is being madepursuant to the Care Everywhere program and may not contain all information available regarding this patient. Last updated 18.[facility] [employer] Allergies Active Allergy Reactions Criticality Noted Date Comments adhesive glue [Other] Rash Medium 06/11/2019 Large rash from glue after removal of her port. At [facility] Medications * Be aware that medications may [...] Comments Blood Pressure 180/120 06/11/2024 11:11 AM DISTRIBUTION OPERATIONS SUPERVISOR Pulse 95 05/24/2022 8:54 AM DISTRIBUTION OPERATIONS SUPERVISOR Temperature 36.3 C (97.3 F) 09/23/2020 10:53 AM CDT Respiratory Rate 18 06/13/2019 3:08 PM DISTRIBUTION OPERATIONS SUPERVISOR Oxygen Saturation 98% 05/24/2022 8:54 AM DISTRIBUTION OPERATIONS SUPERVISOR Inhaled Oxygen Concentration - - Weight 109 kg (240 lb 3.2 oz) 06/11/2024 9:50 AM DISTRIBUTION OPERATIONS SUPERVISOR Height 160 cm (5' 3 ) 06/11/2024 9:50 AM DISTRIBUTION OPERATIONS SUPERVISOR Body Mass Index 42.55 06/11/2024 9:50 AM DISTRIBUTION OPERATIONS SUPERVISOR Plan of Treatment Upcoming Encounters Date Type Department Care Team (Late st Contact Info) Description 06/14/2025 10:00 AM DISTRIBUTION OPERATIONS SUPERVISOR Office Visit [facility] - TEACHING ASSISTANT [address] [place] [address] Rene Gross MD [address] [place] [address] Health Maintenance Due Date Last Done Comments [...] this topic Medical Devices Implanted Type Area Archival Records Clerk Device Identifier Shelf Expiration Date Model / Serial / Lot Mesh Srg Sprmsh Ip Sepra 12x8in Rect Mfl Implanted:Qty : 1 on 06/11/2019 by Mike Pulido MD at [facility] Mesh N/A: Abdomen [employer] 12/02/2020 [id number] / / [id number] Port Implt Pwr Inj Plas Hub 8fr Implanted:Qty : 1 on 03/30/2016 by Mike Pulido MD at [facility] Right: [employer] 08/04/2017 [id number] / / [id number] Procedures Procedure Name Priority Date/Time Associated Diagnosis Comments IMAGING/RADIOLOGY/X RAY RESULTS ORDER 11/03/2024 MAMMOGRAM Routine 08/01/2022 BASIC METABOLIC PANEL (CALCIUM TOTAL) AM Draw 06/13/2019 2:29 AM DISTRIBUTION OPERATIONS SUPERVISOR Abdominal wall mass from Last 3 Months [...] METABOLIC PANEL (CALCIUM TOTAL) (06/13/2019 2:29 AM DISTRIBUTION OPERATIONS SUPERVISOR) Glucose 136(H) 70 - 105 mg/dL 06/13/2019 3:36 AM [facility] Sodium 139 136 - 145 mmol/L 06/13/2019 3:36 AM [facility] Potassium 3.6 3.5 - 4.7 mmol/L 06/13/2019 3:36 AM [facility] Chloride 104 98 - 107 mmol/L 06/13/2019 3:36 AM [facility] CO2 28 23 - 31 mmol/L 06/13/2019 3:36 AM [facility] Calcium 8.4 8.4 - 10.4 mg/dL 06/13/2019 3:36 AM [facility] Anion Gap 7(L) 8 - 16 mmol/L 06/13/2019 3:36 AM [facility] BUN 20 9.8 - 20.1 mg/dL 06/13/2019 3:36 AM [facility] Creatinine 0.85 0.57 - 1.11 mg/dL 06/13/2019 3:36 AM [facility] eGFR by MDRD >60 >60 mL/min/1.7 3m2 06/13/2019 3:36 AM [facility] eGFR by MDRD >60 >60 mL/min/1.7 3m2 06/13/2019 3:36 AM [facility] Blood BLOOD SPECIMEN / Unknown Lab Venipuncture / Unknown 06/13/2019 2:29 AM DISTRIBUTION OPERATIONS SUPERVISOR 06/13/2019 2:57 AM DISTRIBUTION OPERATIONS SUPERVISOR us Inocencia Marinelli MD LAB - CHEMISTRY ORDERABLES Final Result [facility] [address] [place] [id number] from Last 3 Months or Most Recently Relevant to Health Maintenance Insurance CARE Advance Directives * Full Code (Latest Code Status on File) Date Activated Date Inactivated Comments 12/23/2017 9:33 PM 12/24/2017 1:38 PM * Full Code Date Activated Date Inactivated Comments 03/30/2016 5:36 PM 04/03/2016 1:03 PM Care Teams High School Foreign Language Teacher Relationship Specialty Start Date End Date Frederick Estrada MD [address] [id number] PCP - General Family Medicine 03/29/16 Mili Oliva, RN [address] [address] Process Design Chemical Engineer 04/02/16 Mike Pulido MD [address] [address] Referring Physician Surgical Oncology 05/04/16 Wenceslao Decker MD [address] [address] Radiation Oncologist Radiation Oncology 05/04/16 Glenn Evans MD [address] [place] [address] Shared Care Physician Medical Oncology 05/09/16 Izzy Salguero, RN Registered Nurse 12/23/17
== END 2024-11-18 12:46 | disposition home or self-care (01) ==
PROVIDERS: PCP Family Medicine Adolescent Medicine
DX: C56.1 Malignant neoplasm of right ovary (principal); M85.88 Other specified disorders of bone density and structure, other site; M85.852 Other specified disorders of bone density and structure, left thigh; M85.851 Other specified disorders of bone density and structure, right thigh
CPT/HCPCS: 77080

== ENCOUNTER 2024-12-07 15:12 | Outpatient (CLI) | payer OTHER, SELFPAY ==
--- OUTSIDE RECORDS SUMMARY | 2024-12-07 15:26 | XMS_ITS | Encounter Summary ---
Author Organization [employer] [facility] Address [address] [place] [address] Care Team Providers Care Manager Secondary Name Role Phone Frederick Estrada MD Primary Care Provider [phone] Encounter Details Date Type Department Care Team (Late st Contact Info) Description 02/12/2018 Chart Note [facility] Radiation Therapy [address] [place] [address] [place] [address] [place] [address] Social History Tobacco Use Types [...] on filedocumented in this encounter Care Teams Manager Secondary Relationship Specialty Start Date End Date Frederick Estrada MD PCP - General Family Practice 05/10/16 documented as of this encounter
--- OUTSIDE RECORDS SUMMARY | 2024-12-07 15:26 | XMS_ITS | Clinical Summary ---
Author Organization [facility] Address [address] [place] [address] [place] [address] Care Team Providers Care Oxyacetylene Burner Name Role Phone Frederick Estrada MD Primary Care Provider [phone] Allergies No known active allergies Medications ondansetron [...] 2:57 PM CDT Height 162.6 cm (5' 4) 10/15/2016 2:57 PM CDT Body Mass Index [...] (1 - 1-dose 75+ series) 2037 Insurance [facility] [address] OPTIONS PPO [id number] Care Teams Oxyacetylene Burner Relationship Specialty Start Date End Date Frederick Estrada MD PCP - General Family Practice 05/10/16
--- OUTSIDE RECORDS SUMMARY | 2024-12-07 15:26 | XMS_ITS | Clinical Summary ---
Author Organization [facility] [employer] Address [address] [facility] [place] [address] Care Team Providers Care Induction Machine Operator Name Role Phone Frederick Estrada MD Primary Care Provider + Mili Oliva RN Unavailable [phone] Mike Pulido MD Unavailable Unavailabl e Wenceslao Decker MD Unavailable [phone] Glenn Evans MD Unavailable [phone] Izzy Salguero RN Unavailable Unavailable Source Comments [facility],non-owned Affiliates and Associated Physician Practices is amultiple site organization consisting of ambulatory clinics and hospital sitesin [place], [place], [place] and [place]. This disclosure is being madepursuant to the Care Everywhere program and may not contain all information available regarding this patient. Last updated 18.[facility] Allergies Active Allergy Reactions Criticality Noted Date Comments adhesive glue [Other] Rash Medium 06/11/2019 Large rash from glue after removal of her port. At [facility] Medications * Be aware that medications may [...] Comments Blood Pressure 180/120 06/11/2024 11:11 AM EDUCATION ANALYST Pulse 95 05/24/2022 8:54 AM EDUCATION ANALYST Temperature 36.3 C (97.3 F) 09/23/2020 10:53 AM CDT Respiratory Rate 18 06/13/2019 3:08 PM EDUCATION ANALYST Oxygen Saturation 98% 05/24/2022 8:54 AM EDUCATION ANALYST Inhaled Oxygen Concentration - - Weight 109 kg (240 lb 3.2 oz) 06/11/2024 9:50 AM EDUCATION ANALYST Height 160 cm (5' 3) 06/11/2024 9:50 AM EDUCATION ANALYST Body Mass Index 42.55 06/11/2024 9:50 AM EDUCATION ANALYST Plan of Treatment Upcoming Encounters Date Type Department Care Team (Late st Contact Info) Description 06/14/2025 10:00 AM EDUCATION ANALYST Office Visit [facility] - LABORER GOLF COURSE [address] [place] [address] Rene Gross MD [address] [place] [address] Health Maintenance Due Date Last Done Comments [...] this topic Medical Devices Implanted Type Area Rn Paralegal Device Identifier Shelf Expiration Date Model / Serial / Lot Mesh Srg Sprmsh Ip Sepra 12x8in Rect Mfl Implanted:Qty : 1 on 06/11/2019 by Mike Pulido MD at [facility] Mesh N/A: Abdomen [employer] 12/02/2020 [id number] / / [id number] Port Implt Pwr Inj Plas Hub 8fr Implanted:Qty : 1 on 03/30/2016 by Mike Pulido MD at [facility] Right: [employer] 08/04/2017 [id number] / / [id number] Procedures Procedure Name Priority Date/Time Associated Diagnosis Comments IMAGING/RADIOLOGY/X RAY RESULTS ORDER 11/03/2024 MAMMOGRAM Routine 08/01/2022 BASIC METABOLIC PANEL (CALCIUM TOTAL) AM Draw 06/13/2019 2:29 AM EDUCATION ANALYST Abdominal wall mass from Last 3 Months [...] METABOLIC PANEL (CALCIUM TOTAL) (06/13/2019 2:29 AM EDUCATION ANALYST) Glucose 136(H) 70 - 105 mg/dL 06/13/2019 3:36 AM [facility] Sodium 139 136 - 145 mmol/L 06/13/2019 3:36 AM [facility] Potassium 3.6 3.5 - 4.7 mmol/L 06/13/2019 3:36 AM [facility] Chloride 104 98 - 107 mmol/L 06/13/2019 3:36 AM [facility] CO2 28 23 - 31 mmol/L 06/13/2019 3:36 AM [facility] Calcium 8.4 8.4 - 10.4 mg/dL 06/13/2019 3:36 AM [facility] Anion Gap 7(L) 8 - 16 mmol/L 06/13/2019 3:36 AM [facility] BUN 20 9.8 - 20.1 mg/dL 06/13/2019 3:36 AM [facility] Creatinine 0.85 0.57 - 1.11 mg/dL 06/13/2019 3:36 AM [facility] eGFR by MDRD >60 >60 mL/min/1.7 3m2 06/13/2019 3:36 AM [facility] eGFR by MDRD >60 >60 mL/min/1.7 3m2 06/13/2019 3:36 AM [facility] Blood BLOOD SPECIMEN / Unknown Lab Venipuncture / Unknown 06/13/2019 2:29 AM EDUCATION ANALYST 06/13/2019 2:57 AM EDUCATION ANALYST us Inocencia Marinelli MD LAB - CHEMISTRY ORDERABLES Final Result [facility] [address] [place] [id number] from Last 3 Months or Most Recently Relevant to Health Maintenance Insurance CARE Advance Directives * Full Code (Latest Code Status on File) Date Activated Date Inactivated Comments 12/23/2017 9:33 PM 12/24/2017 1:38 PM * Full Code Date Activated Date Inactivated Comments 03/30/2016 5:36 PM 04/03/2016 1:03 PM Care Teams Induction Machine Operator Relationship Specialty Start Date End Date Frederick Estrada MD [address] [id number] PCP - General Family Medicine 03/29/16 Mili Oliva, RN [address] [address] Sand Blaster 04/02/16 Mike Pulido MD [address] [address] Referring Physician Surgical Oncology 05/04/16 Wenceslao Decker MD [address] [address] Radiation Oncologist Radiation Oncology 05/04/16 Glenn Evans MD [address] [place] [address] Shared Care Physician Medical Oncology 05/09/16 Izzy Salguero, RN Registered Nurse 12/23/17
--- OUTSIDE RECORDS SUMMARY | 2024-12-07 15:26 | XMS_ITS | Clinical Summary ---
Author Organization [facility] Address [address], [address] [address] Phone Care Team Providers Care Electric Needle Specialist Name Role Phone Frederick Estrada MD Primary [...] Recently Relevant to Health Maintenance Results * COLONOSCOPY (03/17/2020) Aftab Jiang DO PROCEDURE/MINOR SURGICAL ORDERA BLES Final Result from Last 3 Months or Most Recently Relevant to Health Maintenance Insurance Care Teams Electric Needle Specialist Relationship Specialty Start Date End Date Frederick Estrada MD PCP - General Family Medicine 02/29/20
[2024-12-07 16:01] LABS: Anion Gap 9 mmol/L (4-12); Blood Urea Nitrogen 23 mg/dL (7-17); Calcium 9.5 mg/dL (8.4-10.2); Carbon Dioxide 27 mmol/L (22-30); Chloride 102 mmol/L (98-107); Estimated Glomerular Filt Rate 58; Glucose 297 mg/dL (65-110); Potassium 3.9 mmol/L (3.4-5.0); Sodium 138 mmol/L (137-145)
== END 2024-12-07 15:13 | disposition home or self-care (01) ==
LOC: ANHLAB 15:14
PROVIDERS: PCP Family Medicine Adolescent Medicine; Visit Provider Family Medicine Adolescent Medicine
DX: Z79.899 Other long term (current) drug therapy (principal)
CPT/HCPCS: 36415; 80048

== ENCOUNTER 2025-01-06 11:05 | Outpatient (CLI) | payer OTHER, SELFPAY ==
--- OUTSIDE RECORDS SUMMARY | 2025-01-06 11:21 | XMS_ITS | Clinical Summary ---
Author Organization [facility] Address [address], [address] [address] Phone Care Team Providers Care Engineering Professionals Name Role Phone Frederick Estrada MD Primary [...] (Adult) (1 - 1-dose 75+ series) 2037 Hepatitis B Immunization Aged Out No longer [...] Relevant to Health Maintenance Insurance Care Teams Engineering Professionals Relationship Specialty Start Date End Date Frederick Estrada MD PCP - General Family Medicine 02/29/20
--- OUTSIDE RECORDS SUMMARY | 2025-01-06 11:21 | XMS_ITS | Clinical Summary ---
Author Organization [facility] Address [address] [place] [address] [place] [address] Care Team Providers Care Roll Hauler Name Role Phone Frederick Estrada MD Primary Care Provider [phone] Allergies No known active allergies Medications ondansetron [...] (1 of 2) 2012 INFLUENZA VACCINE (#1) 2025 RSV VACCINE (60+ or ) (1 - 1-dose 75+ series) 2037 Insurance [employer] [address] OPTIONS PPO [id number] Care Teams Roll Hauler Relationship Specialty Start Date End Date Frederick Estrada MD PCP - General Family Practice 05/10/16
--- OUTSIDE RECORDS SUMMARY | 2025-01-06 11:21 | XMS_ITS | Clinical Summary ---
Author Organization [facility] [employer] Address [address] [place] [address] Care Team Providers Care Order Tracer Name Role Phone Frederick Estrada MD Primary Care Provider + Mili Oliva RN Unavailable [phone] Mike Pulido MD Unavailable Unavailabl e Wenceslao Decker MD Unavailable [phone] Glenn Evans MD Unavailable [phone] Izzy Salguero RN Unavailable Unavailable Source Comments [facility],non-owned Affiliates and Associated Physician Practices is amultiple site organization consisting of ambulatory clinics and hospital sitesin [place], [place], [place] and [place]. This disclosure is being madepursuant to the Care Everywhere program and may not contain all information available regarding this patient. Last updated 18.[facility] [employer] Allergies Active Allergy Reactions Criticality Noted Date Comments adhesive glue [Other] Rash Medium 06/11/2019 Large rash from glue after removal of her port. At [facility] Medications * Be aware that medications may [...] Comments Blood Pressure 180/120 06/11/2024 11:11 AM CHERRY PICKER OPERATOR Pulse 95 05/24/2022 8:54 AM CHERRY PICKER OPERATOR Temperature 36.3 C (97.3 F) 09/23/2020 10:53 AM CDT Respiratory Rate 18 06/13/2019 3:08 PM CHERRY PICKER OPERATOR Oxygen Saturation 98% 05/24/2022 8:54 AM CHERRY PICKER OPERATOR Inhaled Oxygen Concentration - - Weight 109 kg (240 lb 3.2 oz) 06/11/2024 9:50 AM CHERRY PICKER OPERATOR Height 160 cm (5' 3) 06/11/2024 9:50 AM CHERRY PICKER OPERATOR Body Mass Index 42.55 06/11/2024 9:50 AM CHERRY PICKER OPERATOR Plan of Treatment Upcoming Encounters Date Type Department Care Team (Late st Contact Info) Description 06/14/2025 10:00 AM CHERRY PICKER OPERATOR Office Visit [facility] [address] [place] [address] Rene Gross MD [address] [place] [address] Health Maintenance Due Date Last Done Comments [...] this topic Medical Devices Implanted Type Area Hardening Machine Operator Device Identifier Shelf Expiration Date Model / Serial / Lot Mesh Srg Sprmsh Ip Sepra 12x8in Rect Mfl Implanted:Qty : 1 on 06/11/2019 by Mike Pulido MD at [facility] Mesh N/A: Abdomen [employer] 12/02/2020 [id number] / / [id number] Port Implt Pwr Inj Plas Hub 8fr Implanted:Qty : 1 on 03/30/2016 by Mike Pulido MD at [facility] Right: [employer] 08/04/2017 [id number] / / [id number] Procedures Procedure Name Priority Date/Time Associated Diagnosis Comments IMAGING/RADIOLOGY/X RAY RESULTS ORDER 11/03/2024 MAMMOGRAM Routine 08/01/2022 BASIC METABOLIC PANEL (CALCIUM TOTAL) AM Draw 06/13/2019 2:29 AM CHERRY PICKER OPERATOR Abdominal wall mass from Last 3 Months [...] METABOLIC PANEL (CALCIUM TOTAL) (06/13/2019 2:29 AM CHERRY PICKER OPERATOR) Glucose 136(H) 70 - 105 mg/dL 06/13/2019 3:36 AM [facility] Sodium 139 136 - 145 mmol/L 06/13/2019 3:36 AM [facility] Potassium 3.6 3.5 - 4.7 mmol/L 06/13/2019 3:36 AM [facility] Chloride 104 98 - 107 mmol/L 06/13/2019 3:36 AM [facility] CO2 28 23 - 31 mmol/L 06/13/2019 3:36 AM [facility] Calcium 8.4 8.4 - 10.4 mg/dL 06/13/2019 3:36 AM [facility] Anion Gap 7(L) 8 - 16 mmol/L 06/13/2019 3:36 AM [facility] BUN 20 9.8 - 20.1 mg/dL 06/13/2019 3:36 AM [facility] Creatinine 0.85 0.57 - 1.11 mg/dL 06/13/2019 3:36 AM [facility] eGFR by MDRD >60 >60 mL/min/1.7 3m2 06/13/2019 3:36 AM [facility] eGFR by MDRD >60 >60 mL/min/1.7 3m2 06/13/2019 3:36 AM [facility] Blood BLOOD SPECIMEN / Unknown Lab Venipuncture / Unknown 06/13/2019 2:29 AM CHERRY PICKER OPERATOR 06/13/2019 2:57 AM CHERRY PICKER OPERATOR us Inocencia Marinelli MD LAB - CHEMISTRY ORDERABLES Final Result [facility] [address] [place] [id number] from Last 3 Months or Most Recently Relevant to Health Maintenance Insurance CARE Advance Directives * Full Code (Latest Code Status on File) Date Activated Date Inactivated Comments 12/23/2017 9:33 PM 12/24/2017 1:38 PM * Full Code Date Activated Date Inactivated Comments 03/30/2016 5:36 PM 04/03/2016 1:03 PM Care Teams Order Tracer Relationship Specialty Start Date End Date Frederick Estrada MD [address] [id number] PCP - General Family Medicine 03/29/16 Mili Oliva, RN [address] [address] Coil Winder Strap 04/02/16 Mike Pulido MD [address] [address] Referring Physician Surgical Oncology 05/04/16 Wenceslao Decker MD [address] [address] Radiation Oncologist Radiation Oncology 05/04/16 Glenn Evans MD [address] [place] [address] Shared Care Physician Medical Oncology 05/09/16 Izzy Salguero, RN Registered Nurse 12/23/17
--- OUTSIDE RECORDS SUMMARY | 2025-01-06 11:21 | XMS_ITS | Encounter Summary ---
Author Organization [facility] Address [address] [place] [address] Care Team Providers Care Highway Worker Name Role Phone Frederick Estrada MD Primary Care Provider [phone] Encounter Details Date Type Department Care Team (Late st Contact Info) Description 02/12/2018 Chart Note [facility] Radiation Therapy [address] [place] [address] [place] [address] [place] [address] Social History Tobacco Use Types [...] on filedocumented in this encounter Care Teams Highway Worker Relationship Specialty Start Date End Date Frederick Estrada MD PCP - General Family Practice 05/10/16 documented as of this encounter
[2025-01-06 12:29] LABS: Hematocrit 44.4 % (37.0-47.0); Hemoglobin 14.4 g/dL (12.0-15.0); Immature Granulocyte Percent A 0.7 % (0-0.5); Lymphocytes Absolute Auto 1.52 K/mm3 (0.9-3.2); Mean Corpuscular HGB Conc 32.4 g/dl (32-36); Mean Corpuscular Hemoglobin 28.4 pg (26-34); Mean Corpuscular Volume 87.6 fl (80-100); Nucleated Red Blood Cells Absolute Auto 0.000 K/mm3 (0.0-0.012); Nucleated Red Blood Cells Perc 0.0 % (0.0-0.2); Platelet Count Result 162 k/mm3 (150-375); Red Blood Count 5.07 M/mm3 (4.2-5.4); White Blood Count 6.0 K/mm3 (4.5-10.0)
[2025-01-06 12:40] LABS: INR 1.0; Partial Thromboplastin Time 29.3 Seconds (22.3-36.8); Prothrombin Time 13.4 Seconds (11.1-14.7)
[2025-01-06 12:45] LABS: Albumin Level 4.1 g/dL (3.5-5.1); Glucose 197 mg/dL (65-110)
[2025-01-06 13:46] LABS: MRSA (PCR). NOT DETECTED (NOT DETECTE)
[2025-01-06 15:49] LABS: Add Urine Microscopic? YES; Appearance Urine Cloudy (Clear); Glucose Urine UA Negative (Negative); Leukocyte Esterase Ur 2+ LEU/UL (Negative); Need Manual Microscopic Reviewed; Nitrate Urine Positive (Negative); Specific Grav Ur 1.022 (1.001-1.035)
== END 2025-01-06 11:06 | disposition home or self-care (01) ==
LOC: ANHSURGERY 11:11
PROVIDERS: PCP Family Medicine Adolescent Medicine; Visit Provider Orthopaedic Surgery
DX: M17.11 Unilateral primary osteoarthritis, right knee (principal); Z01.818 Encounter for other preprocedural examination
CPT/HCPCS: 36415; 81001; 82040; 82947; 85025; 85610; 85730; 87077; 87086; 87186; 87641

== ENCOUNTER 2025-01-20 02:32 | Day surgery (SDC) | payer OTHER, SELFPAY ==
[2025-01-06 11:25] VITALS: BP 131/94; PULSE 95; RESP 16; TEMP 36.6; O2SAT 96; BMI 39.9
--- NOTE | 2025-01-06 11:49 | PC.NURSE ---
Report to the Outpatient Waiting Room, entrance under the green pavilion located off [facility], at time _0600am on date _01/20/25 . Planned Procedure Time: __0730am .? Time changes happen often and if your time is changed the preop area will call you the afternoon before. - You and your visitor will be asked to self-screen and do not enter if you have any COVID symptoms. Please call surgeon if you need to reschedule. - A mask is optional within the hospital at this time. Patients may have clear liquids (water, carbonated beverages, clear teas, apple juice) until 3 hours prior to surgery with a maximum of 20 ounces. - No food from midnight until time of surgery and no smoking, or chewing tobacco (or any form of nicotine). No chewing gum, candy or mints. (04:30am) Take only the following medications with a SIP of water on the morning of surgery: ____Metoprolol and Tramadol if needed DO NOT STOP ANY OF YOUR OTHER PRESCRIPTION MEDICATIONS PRIOR TO SURGERY EXCEPT THE FOLLOWING Hold all vitamins and supplements for 3 days per anesthesiologist. Date to take last dose is 01/16/25 Medications to discontinue per physician ___NONE Date to take last dose NONE Please no make-up, nail arabic, hairspray, perfume, deodorant, or body powder the day of surgery.? No jewelry (including any body piercings) or valuables the day of surgery, leave them at home.? Please take a shower or bath the night before, or the morning of, surgery with an antibacterial soap. HIBICLEANSE SCRUB ? Wear comfortable, loose fitting clothing.? Bring Overnight bag - Jewelry must be removed prior to entering the operating room.? Rings and piercings that are not removed may be cut off. - The hospital will not accept responsibility for valuables.? - Please leave all valuables, including medications, at home the day of surgery. If you are going home after surgery, a licensed grain combine driver must drive you home.? - NO public transportation without another adult if you receive anesthesia. - We recommend that an adult stay with you for 24 hours following discharge. - We also recommend that you do not drive, make important decision, drink alcoholic beverages, or take any drugs that were not prescribed by your health care provider for at least 24 hours after your discharge time. Follow any additional instructions given to you from your surgeon. Telephone instructions given to ___Patient and asked if any additional questions and then verbalized understanding. Patient advised to call surgeon office or pre surgery nurse liaison [phone] if any additional questions.
[2025-01-06 12:02] VITALS: BP 127/93
[2025-01-20] VITALS (13 sets, daily range): BP systolic 119–156; BP diastolic 73–96; PULSE 78–92; RESP 14–20; TEMP 36.4–36.9; O2SAT 94–100
--- NOTE | ~2025-01-20 | XR_ITS ---
EXAMINATION: [id number] DATE: 01/20/2025 11:46 CDT INDICATION: Postop right total knee arthroplasty TECHNIQUE: 2 views right knee FINDINGS: There is a right total knee arthroplasty in expected position. Subcutaneous gas with fluid and air in the joint and overlying skin blossom are consistent with recent surgery. No evidence of p eriprosthetic fracture. IMPRESSION: 1. Recent right total knee arthroplasty. Reviewed, dictated and finalized at location B.
--- OUTSIDE RECORDS SUMMARY | 2025-01-20 02:36 | XMS_ITS | Clinical Summary ---
Author Organization [facility] Address [address], [address] [address] Phone Care Team Providers Care Quality Control Analyst Name Role Phone Frederick Estrada MD Primary [...] Relevant to Health Maintenance Insurance Care Teams Quality Control Analyst Relationship Specialty Start Date End Date Frederick Estrada MD PCP - General Family Medicine 02/29/20
--- OUTSIDE RECORDS SUMMARY | 2025-01-20 02:36 | XMS_ITS | Clinical Summary ---
Author Organization [facility] [employer] Address [address] [facility] [place] [address] Care Team Providers Care Die Holder Name Role Phone Frederick Estrada MD Primary Care Provider + Mili Oliva RN Unavailable [phone] Mike Pulido MD Unavailable Unavailabl e Wenceslao Decker MD Unavailable [phone] Glenn Evans MD Unavailable [phone] Izzy Salguero RN Unavailable Unavailable Source Comments [facility],non-owned Affiliates and Associated Physician Practices is amultiple site organization consisting of ambulatory clinics and hospital sitesin [place], [place], [place] and [place]. This disclosure is being madepursuant to the Care Everywhere program and may not contain all information available regarding this patient. Last updated 18.[facility] [employer] Allergies Active Allergy Reactions Criticality Noted Date Comments adhesive glue [Other] Rash Medium 06/11/2019 Large rash from glue after removal of her port. At [facility] Medications * Be aware that medications may [...] Comments Blood Pressure 180/120 06/11/2024 11:11 AM ASSISTANT ASSOCIATE PROFESSOR Pulse 95 05/24/2022 8:54 AM ASSISTANT ASSOCIATE PROFESSOR Temperature 36.3 C (97.3 F) 09/23/2020 10:53 AM CDT Respiratory Rate 18 06/13/2019 3:08 PM ASSISTANT ASSOCIATE PROFESSOR Oxygen Saturation 98% 05/24/2022 8:54 AM ASSISTANT ASSOCIATE PROFESSOR Inhaled Oxygen Concentration - - Weight 109 kg (240 lb 3.2 oz) 06/11/2024 9:50 AM ASSISTANT ASSOCIATE PROFESSOR Height 160 cm (5' 3) 06/11/2024 9:50 AM ASSISTANT ASSOCIATE PROFESSOR Body Mass Index 42.55 06/11/2024 9:50 AM ASSISTANT ASSOCIATE PROFESSOR Plan of Treatment Upcoming Encounters Date Type Department Care Team (Late st Contact Info) Description 06/14/2025 10:00 AM ASSISTANT ASSOCIATE PROFESSOR Office Visit [facility] - MEDIC TECHNICIAN [address] [place] [address] Rene Gross MD [address] [place] [address] Health Maintenance Due Date Last Done Comments [...] Screening 04/01/2024 DEPRESSION SCREENING 07/08/2024 06/11/2024, 06/13/20 MAMMOGRAM 08/01/2024 08/01/2022 INFLUENZA VACCINE (#1) 2025 03/23/2020, 2015 HEPATITIS B VACCINE Aged Out No longe [...] this topic Medical Devices Implanted Type Area Copyman Device Identifier Shelf Expiration Date Model / Serial / Lot Mesh Srg Sprmsh Ip Sepra 12x8in Rect Mfl Implanted:Qty : 1 on 06/11/2019 by Mike Pulido MD at [facility] Mesh N/A: Abdomen [employer] 12/02/2020 [id number] / / [id number] Port Implt Pwr Inj Plas Hub 8fr Implanted:Qty : 1 on 03/30/2016 by Mike Pulido MD at [facility] Right: [employer] 08/04/2017 [id number] / / [id number] Procedures Procedure Name Priority Date/Time Associated Diagnosis Comments IMAGING/RADIOLOGY/X RAY RESULTS ORDER 11/03/2024 MAMMOGRAM Routine 08/01/2022 BASIC METABOLIC PANEL (CALCIUM TOTAL) AM Draw 06/13/2019 2:29 AM ASSISTANT ASSOCIATE PROFESSOR Abdominal wall mass from Last 3 Months [...] METABOLIC PANEL (CALCIUM TOTAL) (06/13/2019 2:29 AM ASSISTANT ASSOCIATE PROFESSOR) Glucose 136(H) 70 - 105 mg/dL 06/13/2019 [...] Lab Venipuncture / Unknown 06/13/2019 2:29 AM ASSISTANT ASSOCIATE PROFESSOR 06/13/2019 2:57 AM ASSISTANT ASSOCIATE PROFESSOR us Inocencia Marinelli MD LAB - CHEMISTRY ORDERABLES Final Result [facility] [address] [place] [id number] from Last 3 Months or Most Recently Relevant to Health Maintenance Insurance CARE Advance Directives * Full Code (Latest Code Status on File) Date Activated Date Inactivated Comments 12/23/2017 9:33 PM 12/24/2017 1:38 PM * Full Code Date Activated Date Inactivated Comments 03/30/2016 5:36 PM 04/03/2016 1:03 PM Care Teams Die Holder Relationship Specialty Start Date End Date Frederick Estrada MD [address] [id number] PCP - General Family Medicine 03/29/16 Mili Oliva, RN [address] [address] An Employee Sponsor Or Advocate And 04/02/16 Mike Pulido MD [address] [address] Referring Physician Surgical Oncology 05/04/16 Wenceslao Decker MD [address] [address] Radiation Oncologist Radiation Oncology 05/04/16 Glenn Evans MD [address] [place] [address] Shared Care Physician Medical Oncology 05/09/16 Izzy Salguero, RN Registered Nurse 12/23/17
[2025-01-20] MEDS: LACTATED RINGERS 1,000 ML 30 ML IV CONT (06:55)
[2025-01-20] MEDS: ACETAMINOPHEN 500 MG TABLET 1000 MG PO (07:02)
--- NOTE | 2025-01-20 07:04 | P.PNAN_ITS ---
Anes - Initial Pre Proc Eval Procedure: Operation Date: 01/20/25 07:30 Proposed Procedures p Right Total Knee Arthroplasty - Bay Ta MD Date/Time: 01/20/25 07:04 Surgeon: Bay Ta MD Pre Op Diagnosis: right knee djd Patient Data Age: 64 Gender: F Height: 1.65 m Weight: 108.9 kg Last Vital Signs Temp 36.6 C 01/06/25 11:25 Pulse 95 01/06/25 11:25 Resp 16 01/06/25 11:25 BP 127/93 H 01/06/25 12:02 Pulse Ox 96 01/06/25 11:25 O2 Del Method Room Air 01/06/25 11:25 Allergies Allergy/AdvReac Type Severity Reaction Status Date / Time surgical glue Allergy Rash Uncoded 01/15/25 10:14 Home Medications ?Medication ?Instructions ?Recorded ?Confirmed ?Type lisinopril 40 mg tablet See Rx Instructions .Route 11/26/24 01/20/25 Rx .COMPLEX #90 tabs metformin 500 mg tablet,extended 1,500 mg (3 x 500 mg) PO DAILY 12/10/24 01/20/25 Rx release 24 hr #270 tabs metoprolol succinate 50 mg 50 mg PO DAILY #90 tabs 12/10/24 01/20/25 Rx tablet,extended release 24 hr tramadol 50 mg tablet 50 mg PO Q12H PRN pain #30 tabs 12/14/24 01/20/25 Rx glimepiride 2 mg tablet See Rx Instructions .Route 12/29/24 01/20/25 Rx .COMPLEX #90 tabs simvastatin 20 mg tablet See Rx Instructions .Route 12/29/24 01/20/25 Rx .COMPLEX #90 tabs Lactobacillus acidophilus 10 100 mmu cells PO HS 01/06/25 01/20/25 History billion cell capsule (NewFlora) caden root extract 50 mg tablet 50 mg PO DAILY 01/06/25 01/20/25 History lysine HCl 1,000 mg tablet 1,000 mg PO DAILY 01/06/25 01/20/25 History chlorhexidine gluconate 4 % 1 applic topical ONCE #237 mL 01/13/25 01/20/25 Rx topical liquid (Hibiclens) amoxicillin 500 mg-potassium 1 tablet PO Q12H UTI 3 days #6 tabs 01/15/25 01/20/25 Rx clavulanate 125 mg tablet (Augmentin) Patient hx anesthesia problems: none Family hx anesthesia problems: none Results Review: All pre-operative results and documents have been reviewed as part of the pre- operative evaluation. [facility] Past Medical History Medical History Other fatigue BMI greater than 40 Wears glasses Vertigo Left knee DJD Right knee DJD Bilateral knee pain Obesity Cancer Ovarian CA Endometriosis ROSENDA (obstructive sleep apnea) (2017) HTN (hypertension) Hypercholesterolemia Surgical History Surgical History Hx of hysterectomy (2014) Hx of cholecystectomy (2013) Hx of tonsillectomy Hx of dilation and curettage Family History Family History Father Hypertension Also, father was diagnosed with skin ca last year. Mother Hypertension Unknown Breast cancer Bladder cancer Skin cancer Ovarian cancer Other Family history of cardiovascular disease Social History Social History Smoking status: Never smoker Second hand tobacco smoke exposure: Yes Additional smoking assessment comments: Denies any nicotine Alcohol intake: never Substance use: never Substance use type: does not use Lack of Transportation: No Lack of Food: Never True Current Housing: I Have Housing Concerned About Future Housing: No Difficulty Paying Gas/Electric Bills: No Difficulty Paying for Meds: No Currently Unemployed: No Education: High School Diploma/GED Difficulty w/ Childcare or Family Care: No Living arrangements: with family Additional living arrangements comments: Occupation/Education: occupation 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 Gender identity (if verbalized by the patient): Female Sexual Orientation (if Verbalized by the Patient): Straight or Heterosexual Spiritual care concerns: No Agree to blood products: Yes Anes - Eval Final PreProcedure Day of Procedure 01/20/25 07:04 Patient weight: morbidly obese Heart: regular rate and rhythm Lungs: clear to auscultation Airway: Mallampati scale class II Neurological: alert and oriented Last oral intake: >/= 8 hours ASA classification: III Emergent: no Anesthetic plan: proceed Anesthesia type and monitoring: general LMA and standard monitoring Results Review: All pre-operative results and documents have been reviewed as part of the pre- operative evaluation. Informed Consent: The patient's anesthetic plan and its attendant risks and benefits were discussed with the patient/family/POA. Questions were solicited and answers provided to the satisfaction of the patient/family/POA.
[2025-01-20] MEDS: TRANEXAMIC ACID 1,000MG/ISO100 1,000 MG/100 ML BAG 200 MG IVPB (07:10)
--- NOTE | 2025-01-20 07:14 | WPDHPUPDATE1 ---
History and Physical Update Update Date/Time: 01/20/25 07:14 History and Physical has been reviewed, including an updated exam of the patient. There are NO changes in the patient's condition. Risks, benefits, and alternatives have been discussed and questions answered. Patient agrees to proceed with procedure.
[2025-01-20] MEDS: ceFAZolin 2 GM in SODIUM CHLORIDE 0.9% IV 50 ML 100 ML IVPB ×3 (07:33→23:16)
--- NOTE | 2025-01-20 07:33 | WPDANESPNB ---
Anes - Peripheral Nerve Block Date/Time: 01/20/25 07:33 I have discussed with the patient/family/POA the placement of a peripheral nerve block for post-operative pain management, including associated risks, benefits, complications, and side effects. Alternative methods of post-operative analgesia were detailed. Questions were solicited and answers provided to the satisfaction of the patient/family/POA. Time-Out: A pre-procedural Time-Out was completed immediately before starting the procedure and confirmed: Patient Identification, Site, Procedure, Patient Position and the Availability of Requisite Equipment. Clinical Indications: Acute post-operative pain management requested by the operative surgeon. Nerve Block Insertion Note Anes-nerve block: adductor canal right Patient position: supine Skin prep: chlorhexidine Needle: 22 gauge, stimulating, insulated echogenic needle. Needle length: 80 mm Technique: ultrasound Injectate: bupivacaine 0.5% with epi 5 mcg/ml (30cc - no epi) Observations: tolerated well Complications: none Procedure start time:: 725 Procedure end time:: 728
[2025-01-20] MEDS: SODIUM CHLORIDE 0.9% IV 37.7 ML, MORPHINE SULFATE INJ (*CRX) 2 MG, ROPivacaine HCL 1% 2... INFILTRATE (08:26)
[2025-01-20] MEDS: GENTAMICIN BONE CEMENT REFOBACIN 1 EACH TOPICAL (08:40)
[2025-01-20] MEDS: TRANEXAMIC ACID 1,000 MG/10 ML AMPUL 1000 MG IV PUSH (08:58)
--- NOTE | 2025-01-20 09:26 | W.PM.PROC2 ---
Procedure Note - Detailed Date of Procedure 01/20/25 Pre-op Diagnosis right knee djd Post-op Diagnosis Same Procedure Performed R TKA Surgeon Bay Ta MD Anesthesia General Description of Procedure THE RIGHT KNEE WAS PREPPED AND DRAPED IN THE STERILE FASHION. THERE WAS A 10 DEGREE FLEXION CONTRACTURE. A MIDLINE SKIN INCISION WAS MADE. A MEDIAL PARAPATELLAR ARTHROTOMY WAS MADE. THE PATELLA WAS EVERTED. THERE WAS TRICOMPARTMENT DJD. THERE WAS MINIMAL PATELLA DJD. AN INTRAMEDULLARY ANA PAULA WAS PLACED IN THE FEMUR. A DISTAL FEMORAL CUT WAS MADE IN 5 DEGREES OF VALGUS REMOVING APPROXIMATELY 9 MM OF BONE FROM THE DISTAL FEMUR. THE FEMUR WAS SIZED TO 62.5. A 62.5 FEMORAL CUTTING BLOCK WAS PLACED IN 3 DEGREES OF EXTERNAL ROTATION AND IN ALIGNMENT WITH LARA'S LINE AND THE TRANSEPICONDYLAR AXIS. ANTERIOR POSTERIOR AND CHAMFER CUTS WERE MADE. THE CUTS WERE EXCELLENT. NEXT AN INTRAMEDULLARY CUTTING GUIDE WAS PLACED IN THE TIBIA. A TRANS TIBIAL CUT WAS MADE ALONG THE LONG AXIS OF THE TIBIA. APPROXIMATELY 10 MM OF BONE WAS REMOVED FROM THE HIGH SIDE OF THE TIBIA. THE TIBIA WAS THEN PLANED TO A SMOOTH SURFACE. POSTERIOR FEMORAL OSTEOPHYTES WERE REMOVED FROM THE FEMORAL CONDYLES. A 71 TIBIAL TRIAL WAS PLACED IN ALIGNMENT WITH THE 1/3 MEDIAL ASPECT OF THE TIBIAL TUBERCLE. THEN A 62.5 FEMORAL TRIAL COMPONENT WAS PLACED. BOTH HAD EXCELLENT FITS. EVENTUALLY A 10 MM POLYETHYLENE TRIAL COMPONENT WAS PLACED. THE KNEE WAS TAKEN THROUGH A RANGE OF MOTION. THE KNEE CAME OUT TO FULL EXTENSION. THERE WAS NO ABNORMAL TILT TO THE PATELLA. THERE WAS GOOD A/P AND VARUS/VALGUS STABILITY. THERE WAS NO EXCESSIVE ROLL BACK WITH FLEXION. THE TRIAL COMPONENTS WERE REMOVED. THEN A 62.5 FEMORAL COMPONENT AND 71 TIBIAL COMPONENT WITH A 10 POLYETHYLENE COMPONENT WERE CEMENTED INTO PLACE. ONCE THE CEMENT WAS HARD THE KNEE WAS TAKEN THROUGH A ROM AGAIN AND FOUND TO BE STABLE WITH NO PATELLA TILT NO EXCESSIVE ROLL BACK WITH FLEXION AND GOOD STABILITY WITH COMPLETE AND FULL EXTENSION. THE KNEE WAS IRRIGATED WITH STERILE BETADINE AND WATER FOR ABOUT 3 MINUTES. THE BLEEDERS WERE CAUTERIZED. THE ARTHROTOMY WAS REPAIRED WITH NUMBER 1 VICRYL. THE SUB CUTANEOUS LAYER WITH 2-0 VICRYL AND THE SKIN WITH JOSELUIS. THE WOUND WAS WASHED AND A STERILE DRESSING WAS APPLIED. PATIENT WAS EXTUBATED. Estimated Blood Loss -150.0 Pathology None sent Complications No immediate complications Condition Stable Disposition PACU
--- NOTE | 2025-01-20 10:40 | ADMGEN ---
This patient, Evelina Shields, was admitted to [facility] Surg Room 300-01. Patient/family oriented to hospital policies and general routines including ID bracelet, bed and alarms, visiting hours, pain management, procedures, bathroom and other care routines, personal items, smoking policy, room service/diet, and visiting hours. Information on how to activate the Rapid Response Team has been discussed. Patient/Family are encouraged to report perceived risks to care and to ask questions if they do not understand what they are told or what they should do.
[2025-01-20] MEDS: ONDANSETRON INJ 4 MG/2 ML VIAL IV PUSH ×2 (10:48→14:47)
[2025-01-20] MEDS: SENNA/DOCUSATE SODIUM TABLET 2 TAB PO (11:33)
[2025-01-20] MEDS: metFORMIN HCL XR 500 MG TAB.SR.24H 1500 MG PO (11:34)
[2025-01-20] MEDS: FAMOTIDINE 20 MG TABLET PO ×2 (11:34→19:56)
[2025-01-20] MEDS: ASPIRIN 325 MG ENTERIC TABLET PO ×2 (11:35→19:56)
[2025-01-20] MEDS: diazePAM (*CRX) 5 MG TABLET PO (11:41)
[2025-01-20] MEDS: oxyCODONE/ACETAMINOPHEN (*CRX) 10-325 MG TABLET 1 TAB PO ×2 (11:41→18:46)
[2025-01-20] MEDS: KETOROLAC 15 MG/ML VIAL (*BKC) IV PUSH ×3 (11:42→23:16)
[2025-01-21 04:16] VITALS: BP 129/80; PULSE 79; RESP 18; TEMP 36.4; O2SAT 96
[2025-01-21] MEDS: KETOROLAC 15 MG/ML VIAL (*BKC) IV PUSH ×2 (05:02→12:19)
[2025-01-21 06:09] LABS: Hematocrit 37.5 % (37.0-47.0); Hemoglobin 11.6 g/dL (12.0-15.0); Immature Granulocyte Percent A 0.2 % (0-0.5); Lymphocytes Absolute Auto 1.60 K/mm3 (0.9-3.2); Mean Corpuscular HGB Conc 30.9 g/dl (32-36); Mean Corpuscular Hemoglobin 28.5 pg (26-34); Mean Corpuscular Volume 92.1 fl (80-100); Nucleated Red Blood Cells Absolute Auto 0.000 K/mm3 (0.0-0.012); Nucleated Red Blood Cells Perc 0.0 % (0.0-0.2); Platelet Count Result 148 k/mm3 (150-375); Red Blood Count 4.07 M/mm3 (4.2-5.4); White Blood Count 8.5 K/mm3 (4.5-10.0)
[2025-01-21 06:28] LABS: Anion Gap 7 mmol/L (4-12); Blood Urea Nitrogen 30 mg/dL (7-17); Calcium 8.4 mg/dL (8.4-10.2); Carbon Dioxide 26 mmol/L (22-30); Chloride 103 mmol/L (98-107); Estimated CRCL calculation 54 ml/min; Estimated Glomerular Filt Rate 46; Glucose 149 mg/dL (65-110); Potassium 3.9 mmol/L (3.4-5.0); Sodium 136 mmol/L (137-145)
[2025-01-21 08:16] VITALS: BP 117/77; PULSE 88; RESP 18; TEMP 36.7; O2SAT 98
[2025-01-21] MEDS: ASPIRIN 325 MG ENTERIC TABLET PO (08:36)
[2025-01-21] MEDS: SENNA/DOCUSATE SODIUM TABLET 2 TAB PO (08:36)
[2025-01-21] MEDS: metFORMIN HCL XR 500 MG TAB.SR.24H 1500 MG PO (08:36)
[2025-01-21] MEDS: FAMOTIDINE 20 MG TABLET PO (08:36)
[2025-01-21] MEDS: GLIMEPIRIDE 2 MG TABLET BY MOUTH (08:36)
[2025-01-21 08:37] VITALS: PULSE 80
[2025-01-21] MEDS: SIMVASTATIN 20 MG TABLET BY MOUTH (08:37)
[2025-01-21] MEDS: ceFAZolin 2 GM in SODIUM CHLORIDE 0.9% IV 50 ML 100 ML IVPB (08:37)
[2025-01-21] MEDS: METOPROLOL SUCCINATE EXT REL 50 MG TABCR PO (08:37)
--- NOTE | 2025-01-21 09:10 | WPDANESPN ---
Anes - Prog Note Post-Op Date/Time: 01/21/25 09:10 Cardiovascular status: normal Respiratory status: normal Airway patency: baseline Mental status: baseline Post-Op hydration status: normal Vital Signs: Last Vital Signs Temp 36.7 C 01/21/25 08:16 Pulse 80 01/21/25 08:37 Resp 18 01/21/25 08:16 BP 117/77 01/21/25 08:16 Pulse Ox 98 01/21/25 08:16 O2 Del Method Room Air 01/20/25 13:20 O2 Flow Rate 2 01/20/25 11:08 Pain Score (VAS): 08/17 I/O: Intake & Output 01/20/25 01/21/25 01/21/25 23:59 07:59 15:59 Intake Total 220 200 Output Total 200 Balance 20 200 Laboratory Tests 01/21/25 05:25 01/21/25 05:25 01/20/25 01/20/25 01/21/25 09:43 20:12 05:25 WBC 8.5 RBC 4.07 L Hgb 11.6 L Hct 37.5 MCV 92.1 MCH 28.5 MCHC 30.9 L RDW 13.8 Plt Count 148 L MPV 10.4 Immature Gran % (Auto) 0.2 Neut % (Auto) 71.3 Lymph % (Auto) 18.9 [place] % (Auto) 8.1 Eos % (Auto) 0.9 Baso % (Auto) 0.6 Lymph # (Auto) 1.60 [place] # (Auto) 0.7 H Eos # (Auto) 0.1 Baso # (Auto) 0.1 Abs Immat Gran (auto) 0.02 Absolute Neuts (auto) 6.0 Absolute Nucleated RBC 0.000 Nucleated RBC % 0.0 Sodium 136 L Potassium 3.9 Chloride 103 Carbon Dioxide 26 Anion Gap 7 BUN 30 H Creatinine 1.18 H Estim Creat Clear Calc 54 Estimated GFR 46 L Glucose 149 H POC Capillary Glucose 184 H 262 H Calcium 8.4 Post-procedural complaints: none Patient Feedback: Patient satisfied with anesthetic care. Other Findings: n/v x3 epidsodes yesterday. Feeling better today.
--- NOTE | 2025-01-21 09:48 | P.PNOP_ITS ---
Progress Note: A&P Assessment and Plan (1) Status post total right knee replacement: Code(s): Z96.651 - Presence of right artificial knee joint Status: Acute Assessment and Plan: POD #1 : Right TKA Continue PT/OT. WBAT. Walker. HIGH FALL RISK. Continue pain control. Ice Knee. Protect skin. DVT prophylaxis with Aspirin. SCDs. Incentive Spirometry Use reviewed. Monitor Dressing. Change prior to discharge. Bowel Regimen. Dispo: Home with Home Health pending progress with PT/OT Plan Reviewed history, exam, radiographs and current labs with attending MD and covering surgeon, Dr. Ta, who agrees with current plan as indicated above. No further recommendations from Dr. Ta at this time. Time Spent With Patient Time with patient: less than 15 minutes Subjective Subjective Date/Time Seen: 01/21/25 09:48 Post Op day: 1 Interval history: POD #1: Right TKA Patient doing very well. Working well with PT/OT. No new concerns. Hopeful for d/c home today. Review of Systems Review of Systems: All systems reviewed & are unremarkable except as noted in HPI and below Constitutional: Constitutional: Denies fever(s) and Denies headache(s) ENT: Denies headache(s) Cardiovascular: Cardiovascular: Denies chest pain, Denies diaphoresis, Denies palpitations and Denies dyspnea Respiratory: Respiratory: Denies dyspnea Gastrointestinal: Gastrointestinal: Denies abdominal pain, Denies constipation, Denies nausea and Denies vomiting Genitourinary: Genitourinary: Reports nocturia and Denies dysuria Musculoskeletal: Musculoskeletal: Reports arthralgias (Right Knee ) and Reports joint swelling (Right Knee ) Neurologic: Denies headache(s) Endocrine: Endocrine: Denies palpitations Exam Const: General: comfortable and no acute distress Resp: Effort & Inspection: normal respiratory effort Cardio: Rate: regular rate Rhythm: regular rhythm GI: GI Palp: Yes Soft to palpation, No Tenderness to palpation present (GI) and No Guarding due to palpation present (GI) Skin: General skin exam: wounds noted Wounds: wounds noted Other: Incision c/d/i. No surrounding redness/warmth. No hematoma. Mild ecchymosis. No wound dehiscence Neuro: Cognition (Neuro): normal cognition Other: NV intact aside from block. Moves toes. Sensation intact to light touch. +ankle dorsiflexion/plantarflexion. Extrem: Right lower extremity: normal to inspection, knee Details: tenderness (diffuse, mild ) Location: of the patella, swelling (diffuse, consistent with surgical intervention ), abnormal ROM Details: pain with active ROM during, pain with passive ROM during and with range as follows (limited due to recent surgical intervention ); able to extend lower leg actively and ecchymosis (mild ), lower leg (Negative Shannon's Sign ) Details: normal to inspection; no erythema and no tenderness, ankle (+ankle dorsiflexion/plantarflexion ) Details: normal to inspection, no edema and normal ROM; no tenderness, no swelling and no ecchymosis and foot Details: normal capillary refill, normal to inspection, vascular exam Details: dorsalis pedis pulse present and motor-sensory exam Details: light-touch normal; no tenderness Left lower extremity: normal to inspection Psych: Mental Status: mental status grossly normal Objective Data Vital Signs Vital Signs: Vital Signs - 24 hr 01/20/25 10:00 01/20/25 10:15 01/20/25 10:28 Temperature 36.6 C Pulse Rate 90 78 80 Respiratory Rate 16 14 15 Blood Pressure 146/78 H 142/73 H 147/80 H Pulse Oximetry 94 95 97 Oxygen Delivery Room Air Nasal Cannula Nasal Cannula Oxygen Flow Rate 2 2 01/20/25 11:08 01/20/25 11:57 01/20/25 12:50 Temperature Pulse Rate 82 Respiratory Rate 16 Blood Pressure 153/96 H Pulse Oximetry 97 96 98 Oxygen Delivery Nasal Cannula Room Air Oxygen Flow Rate 2 01/20/25 13:20 01/20/25 14:17 01/20/25 18:20 Temperature 36.9 C 36.7 C Pulse Rate 79 87 Respiratory Rate 18 18 Blood Pressure 125/82 140/85 Pulse Oximetry 94 97 Oxygen Delivery Room Air Oxygen Flow Rate 01/20/25 20:16 01/20/25 23:50 01/21/25 04:16 Temperature 36.5 C 36.6 C 36.4 C L Pulse Rate 81 81 79 Respiratory Rate 16 18 18 Blood Pressure 125/82 119/74 129/80 Pulse Oximetry 96 96 96 Oxygen Delivery Oxygen Flow Rate 01/21/25 08:00 01/21/25 08:16 01/21/25 08:37 Temperature 36.7 C Pulse Rate 88 80 Respiratory Rate 18 Blood Pressure 117/77 Pulse Oximetry 98 Oxygen Delivery Room Air Oxygen Flow Rate Intake/Output Intake/Output: Intake & Output 01/18/25 01/19/25 01/20/25 01/21/25 23:59 23:59 23:59 23:59 Intake Total 370 200 Output Total 400 Balance -30 200 Meds/Results Medications: Active Medications Generic Name Dose Route Start Last Admin Trade Name Freq PRN Reason Stop Dose Admin Acetaminophen 500 mg 01/20/25 10:31 Acetaminophen 500 Mg Tablet PO Q6H PRN Pain Rated 1-3 Aspirin 325 mg 01/20/25 10:31 01/21/25 08:36 Aspirin 325 Mg Enteric Tablet PO 325 mg Q12HR BOAZ Administration Diazepam 5 mg 01/20/25 10:31 01/20/25 11:41 Diazepam (*Crx) 5 Mg Tablet PO 5 mg Q8H PRN Administration Spasms Diphenhydramine HCl 25 mg 01/20/25 10:31 Diphenhydramine Hcl Inj 50 Mg/Ml Vial IV PUSH Q6H PRN Itching Famotidine 20 mg 01/20/25 10:31 01/21/25 08:36 Famotidine 20 Mg Tablet PO 20 mg Q12HR BOAZ Administration Glimepiride 2 mg 01/21/25 08:00 01/21/25 08:36 Glimepiride 2 Mg Tablet BY MOUTH 2 mg DAILY@0800 BOAZ Administration Hydromorphone HCl 1 mg 01/20/25 10:34 Hydromorphone Hcl Inj (*Crx) 2 Mg/Ml Vial IV PUSH Q2H PRN Breakthrough Pain Rated 7-10 or NPO Hydromorphone HCl 0.5 mg 01/20/25 10:34 Hydromorphone Hcl Inj (*Crx) 2 Mg/Ml Vial IV PUSH Q2H PRN Breakthrough Pain Rated 4-6 or NPO Ibuprofen 800 mg in 200 mls @ 400 mls/hr 01/20/25 10:31 Caldolor 800 Mg/200 Ml IVPB Q6H PRN Breakthrough Pain Rated 1-3 or NPO Ketorolac Tromethamine 15 mg 01/20/25 12:00 01/21/25 05:02 Ketorolac 15 Mg/Ml Vial (*Bkc) IV PUSH 01/21/25 12:01 15 mg Q6HR BOAZ Administration Lisinopril 40 mg 01/20/25 10:31 01/21/25 08:36 Lisinopril 20 Mg Tablet BY MOUTH 40 mg DAILY BOAZ Administration Metformin HCl 1,500 mg 01/20/25 10:31 01/21/25 08:36 Metformin Hcl Xr 500 Mg Tab.Sr.24h PO 1,500 mg DAILY@0800 BOAZ Administration Metoprolol Succinate 50 mg 01/20/25 10:31 01/21/25 08:37 Metoprolol Succinate Ext Rel 50 Mg Tabcr PO 50 mg DAILY BOAZ Administration Naloxone HCl 0.1 mg 01/20/25 10:31 Naloxone Hcl 0.4 Mg/Ml Vial IV PUSH Q2M PRN Opiate Reversal Ondansetron HCl 4 mg 01/20/25 10:31 01/20/25 14:47 Ondansetron Inj 4 Mg/2 Ml Vial IV PUSH 4 mg Q4H PRN Administration Nausea And Vomiting Oxycodone/Acetaminophen 1 tablet 01/20/25 10:31 Oxycodone/Acetaminophen (*Crx) 5-325 Mg Tablet PO Q4H PRN Pain Rated 4-6 Oxycodone/Acetaminophen 1 tab 01/20/25 10:31 01/20/25 18:46 Oxycodone/Acetaminophen (*Crx) 10-325 Mg Tablet PO 1 tab Q6H PRN Administration Pain Rated 7-10 Polyethylene Glycol 17 gm 01/20/25 10:31 01/21/25 08:36 Polyethylene Glycol 3350 17 Gm Powd.Pack PO 17 gm QAM BOAZ Administration Senna/Docusate Sodium 2 tab 01/20/25 10:31 01/21/25 08:36 Senna/Docusate Sodium Tablet PO 2 tab BID BOAZ Administration Simvastatin 20 mg 01/21/25 09:00 01/21/25 08:37 Simvastatin 20 Mg Tablet BY MOUTH 20 mg DAILY BOAZ Administration Radiology Results: ITS Impressions Knee X-Ray 01/20/25 11:46 IMPRESSION: 1. Recent right total knee arthroplasty. Labs Labs: Laboratory Results - last 24 hr 01/20/25 01/20/25 01/21/25 09:43 20:12 05:25 WBC 8.5 RBC 4.07 L Hgb 11.6 L Hct 37.5 MCV 92.1 MCH 28.5 MCHC 30.9 L RDW 13.8 Plt Count 148 L MPV 10.4 Immature Gran % (Auto) 0.2 Neut % (Auto) 71.3 Lymph % (Auto) 18.9 [place] % (Auto) 8.1 Eos % (Auto) 0.9 Baso % (Auto) 0.6 Lymph # (Auto) 1.60 [place] # (Auto) 0.7 H Eos # (Auto) 0.1 Baso # (Auto) 0.1 Abs Immat Gran (auto) 0.02 Absolute Neuts (auto) 6.0 Absolute Nucleated RBC 0.000 Nucleated RBC % 0.0 Sodium 136 L Potassium 3.9 Chloride 103 Carbon Dioxide 26 Anion Gap 7 BUN 30 H Creatinine 1.18 H Estim Creat Clear Calc 54 Estimated GFR 46 L Glucose 149 H POC Capillary Glucose 184 H 262 H Calcium 8.4 Quality VTE Prophylaxis VTE prophylaxis: pharmacologic ordered
[2025-01-21 11:59] VITALS: BP 133/74; PULSE 80; RESP 18; TEMP 36.8; O2SAT 97
--- NOTE | 2025-01-21 13:16 | P.DS_ITS ---
DS: Admitting Diagnosis Discharge Date 01/21/2025 Admitting Diagnosis Right Knee DJD DS: Discharge Diagnosis Discharge Diagnosis (1) Status post total right knee replacement: Code(s): Z96.651 - Presence of right artificial knee joint Status: Acute DS: Summary Hospital Course Reason for hospitalization: Right TKA Hospital Course: 64 year old female admitted s/p Right TKA for postoperative medical management, pain control and mobilization with PT/OT. Patient progressed well with PT/OT. Pain and vitals remained stable throughout. The patient has been cleared to be discharged home with home health at this time. All discharge care instructions reviewed at depth. New medications reviewed. Follow up planned for 3 weeks in the outpatient orthopedic clinic with Dr. Ta. Dr. Ta in agreement with safe discharge at this time. Status at Discharge Functional status at discharge: uses cane/walker Overall status at discharge: patient is progressing back to baseline Time Spent with Patient Time attestation: Total time spent providing and/or coordinating discharge services: Exam Const: General: comfortable and no acute distress Resp: Effort & Inspection: normal respiratory effort Cardio: Rate: regular rate Rhythm: regular rhythm GI: GI Palp: Yes Soft to palpation, No Tenderness to palpation present (GI) and No Guarding due to palpation present (GI) Skin: General skin exam: wounds noted Wounds: wounds noted Other: Incision c/d/i. No surrounding redness/warmth. No hematoma. Mild ecchymosis. No wound dehiscence Neuro: Cognition (Neuro): normal cognition Other: NV intact aside from block. Moves toes. Sensation intact to light touch. +ankle dorsiflexion/plantarflexion. Extrem: Right lower extremity: normal to inspection, knee Details: tenderness (diffuse, mild ) Location: of the patella, swelling (diffuse, consistent with surgical intervention ), abnormal ROM Details: pain with active ROM during, pain with passive ROM during and with range as follows (limited due to recent surgical intervention ); able to extend lower leg actively and ecchymosis (mild ), lower leg (Negative Shannon's Sign ) Details: normal to inspection; no erythema and no tenderness, ankle (+ankle dorsiflexion/plantarflexion ) Details: normal to inspection, no edema and normal ROM; no tenderness, no swelling and no ecchymosis and foot Details: normal capillary refill, normal to inspection, vascular exam Details: dorsalis pedis pulse present and motor-sensory exam Details: light-touch normal; no tenderness Left lower extremity: normal to inspection Psych: Mental Status: mental status grossly normal DS: Data Data Completed and Pending Labs on day of discharge: Labs from last 24 hours 01/21/25 01/20/25 05:25 20:12 WBC 8.5 RBC 4.07 L Hgb 11.6 L Hct 37.5 MCV 92.1 MCH 28.5 MCHC 30.9 L RDW 13.8 Plt Count 148 L MPV 10.4 Immature Gran % (Auto) 0.2 Neut % (Auto) 71.3 Lymph % (Auto) 18.9 [place] % (Auto) 8.1 Eos % (Auto) 0.9 Baso % (Auto) 0.6 Lymph # (Auto) 1.60 [place] # (Auto) 0.7 H Eos # (Auto) 0.1 Baso # (Auto) 0.1 Abs Immat Gran (auto) 0.02 Absolute Neuts (auto) 6.0 Absolute Nucleated RBC 0.000 Nucleated RBC % 0.0 Sodium 136 L Potassium 3.9 Chloride 103 Carbon Dioxide 26 Anion Gap 7 BUN 30 H Creatinine 1.18 H Estim Creat Clear Calc 54 Estimated GFR 46 L Glucose 149 H POC Capillary Glucose 262 H Calcium 8.4 Discharge Plan Discharge Patient Disposition: Home with Home Health Service Discharge Instructions: Per Care Coordination: [facility] ([phone]) will call to set up initial visit. Post Op Total Knee Replacement Instructions Dr. Bay Ta [phone] * Your dressing will be changed prior to your discharge. You will be sent home with one additional dressing to be changed on post op day 7 by the home health RN. Your blossom will be removed on the 14th day after surgery and steri- strips will be placed. Please practice good hand hygiene and do not touch your incision in order to prevent infection. * You may shower with your dressing but do not submerge in a bath tub. * Do not drive or operate machinery until you are released by Dr. Ta. * Do not walk without a walker for any reason until you are released by Dr. Ta. * Continue to use your ice machine. Please use a towel or pillow case to protect your skin before applying your ice machine. * Do NOT place a pillow under your knee. You may use a pillow from the calf down if needed. This will prevent a flexion contracture postoperatively. * CPM: You may begin use of your CPM machine at home if you have been given one pre-operatively. DO NOT USE WHILE YOU ARE SLEEPING. * ROMTech: If you were given a ROMTech Portable Connect System preoperatively, you are to begin use on the day you arrive home postoperatively. Our goal is for you to use the machine 5 times per day. The sessions are very short in the beginning and will progress as you progress. We are able to monitor your progress from afar as well as your pain and other reported symptoms. If you have difficulties with the machine, please call . NOTE: Please attempt to use the machine even when in pain as this will plant operator helper your therapy with very gentle motion. * Your first post op appointment was sent to you via mail preoperatively. If you have any questions or are unable to make your appointment, please contact our office for scheduling questions. * Your medications have been sent to your pharmacy. You have been sent home with pain medication. Please car pick up driver an over the counter stool softener to prevent constipation due to narcotic use. Please keep this in mind during your postoperative recovery. If you are not experiencing regular bowel movements, please contact our office for further instruction. * Please contact our office with any questions/concerns regarding your knee at [phone]. Patient Instructions: Antibiotic Form Patient Language: Icelandic Stand Alone Forms: General Discharge Information Follow-up/Referrals: Bay Ta MD [Physician] - Keep Reg. Scheduled Appt. Discharge Medications: New aspirin 325 mg Tablet,Delayed Release (Dr/Ec) 325 mg PO Q12HR 28 Days Qty: 56 0RF oxycodone-acetaminophen 5-325 mg Tablet 1 tablet PO Q4H PRN (Reason: pain) Qty: 40 0RF Continued metformin 500 mg tablet extended release 24 hr 1,500 mg PO DAILY Qty: 270 3RF metoprolol succinate 50 mg tablet extended release 24 hr 50 mg PO DAILY Qty: 90 0RF NewFlora 10 billion cell capsule 100 mmu cells PO HS caden root extract 50 mg tablet 50 mg PO DAILY lysine HCl 1,000 mg tablet 1,000 mg PO DAILY lisinopril 40 mg tablet See Rx Instructions .ROUTE .COMPLEX Qty: 90 0RF Dose Instruction: Take 1 tablet by mouth once daily Rx Instructions: Take 1 tablet by mouth once daily glimepiride 2 mg tablet See Rx Instructions .ROUTE .COMPLEX Qty: 90 2RF Dose Instruction: TAKE 1 TABLET BY MOUTH ONCE DAILY IN THE MORNING WITH BREAKFAST Rx Instructions: TAKE 1 TABLET BY MOUTH ONCE DAILY IN THE MORNING WITH BREAKFAST simvastatin 20 mg tablet See Rx Instructions .ROUTE .COMPLEX Qty: 90 2RF Dose Instruction: Take 1 tablet by mouth once daily Rx Instructions: Take 1 tablet by mouth once daily Held tramadol 50 mg tablet 50 mg PO Q12H PRN (Reason: pain) Qty: 30 0RF Hold Instructions: Resume on 02/18/25. Discontinued chlorhexidine gluconate [Hibiclens] 4 % liquid 1 applic topical ONCE Qty: 237 0RF Rx Instructions: Cleanse operative extremity, in shower, every day for 1 week prior to surgical procedure.
== END 2025-01-21 13:50 | disposition home health service (06) ==
LOC: ANHSURGERY 06:05 → ANH3MEDSUR 10:39
PROVIDERS: PCP Family Medicine Adolescent Medicine; Visit Provider Orthopaedic Surgery
PROC: (CPT 27447; principal; 2025-01-20 07:30)
DX: M17.11 Unilateral primary osteoarthritis, right knee (principal); G89.18 Other acute postprocedural pain; R11.2 Nausea with vomiting, unspecified; Z79.84 Long term (current) use of oral hypoglycemic drugs
CPT/HCPCS: 27447; 64447; 36415; 73560; 80048; 82948; 85025; 86850; 86900; 86901; 97110; 97116; 97161; 97165; 97530; 97535; J0690; A9270; C1713; C1776; J0166; J1100; J1885; J2250; J2270; J2405; J2704; J2795; J3010; J7120

== ENCOUNTER 2025-03-19 15:30 | Outpatient (RCR) | payer OTHER, SELFPAY ==
--- NOTE | 2025-02-16 12:52 | OPREHPOC ---
Outpatient Therapy Plan of Care This is a Multidisciplinary Plan of Care that may contain components documented by all disciplines (PT, OT, and ST.) PT Problem 1 PT Problem #1 Knowledge Deficit PT Goal 1 Goal / Goal Update [place] with HEP Target Visit 4 PT Goal 2 Goal / Goal Update Report no pain greater than 2/10 for 2 consecutive weeks Target Visit 8 PT Problem 2 PT Problem #2 Impaired Range of Motion PT Goal 1 Goal / Goal Update 1. Achieve terminal knee extension 2. Improve knee flexion ROM to 120 degrees Target Visit 10 PT Problem 3 PT Problem #3 Impaired Gait PT Goal 1 Goal / Goal Update Ambulate independent of AD with even stride length bilaterally Target Visit 10 PT Problem 4 PT Problem #4 Impaired Strength PT Goal 1 Goal / Goal Update Improve gross strength of R knee to 5/5 Target Visit 10
--- NOTE | 2025-02-16 12:52 | PTOPEVAL1 ---
Assessment and note entered by Bacilio Bustamante, PT Evaluation Information Assessment Status Evaluation Diagnosis S/P R TKA ICD-10 Condition Codes (PT) Pain in right knee M25.561 Onset 05/23/25 Subjective Information Reports that overall she is doing well. Still feels a lot of bruising and pain in the front and back of knee. She has been having trouble sleeping but it is improving daily because she can now lay on her side. She has been able to do stairs with little to no difficulty and has been using a shower upstairs. She feels her biggest deficit has been bending her knee due to pulling and discomfort in the front of the knee. Reported Pain Level Pain Score 3: Self Report Assessment PT Clinical Summary Patient presents with signs and symptoms consistent with total knee arthroplasty. Patient has weakness in operative knee with loss of functional ROM and alternation in gait with dependence on AD. She will benefit form skilled therapy with emphasis on gait independence and functional knee ROM. Plan of Care Interventions Gait Training,Manual Lymph Drainage,Manual Therapy ,Neuro Re-education,Therapeutic Activities, Therapeutic Exercise PT Services Indicated Yes Treatment Frequency and 2x/week for 10 visits Duration These treatments will address the objective and functional deficits as defined above. The patient will be advanced safely and appropriately in order for the patient to progress towards his/her prior level of function. Additional exercises will be introduced and as well as a comprehensive home exercise program upon discharge, if needed, ?to ensure carryover of functional gains achieved in the clinic. This treatment plan has been reviewed and agreement upon by the patient.
--- NOTE | 2025-02-23 15:38 | PCPTNOTE ---
Pt called to cancel her appointment today with no reason provided.
--- NOTE | 2025-03-19 16:45 | OPREHPOC ---
Outpatient Therapy Plan of Care This is a Multidisciplinary Plan of Care that may contain components documented by all disciplines (PT, OT, and ST.) PT Problem 1 PT Problem #1 Knowledge Deficit PT Goal 1 Goal / Goal Update [place] with HEP Target Visit 4 Progress Met PT Goal 2 Goal / Goal Update Report no pain greater than 2/10 for 2 consecutive weeks Target Visit 8 Progress Met PT Problem 2 PT Problem #2 Impaired Range of Motion PT Goal 1 Goal / Goal Update 1. Achieve terminal knee extension 2. Improve knee flexion ROM to 120 degrees Target Visit 14 Progress Partially Met PT Problem 3 PT Problem #3 Impaired Gait PT Goal 1 Goal / Goal Update Ambulate independent of AD with even stride length bilaterally 03/19/25: Continues to show decreased terminal stance R LE Target Visit 14 Progress Partially Met PT Problem 4 PT Problem #4 Impaired Strength PT Goal 1 Goal / Goal Update Improve gross strength of R knee to 5/5 Target Visit 10 Progress Met
--- NOTE | 2025-03-19 16:45 | PTOPPROG ---
Assessment and note entered by Bacilio Bustamante, PT Evaluation Information Assessment Status Progress Diagnosis S/P R TKA ICD-10 Condition Codes (PT) Pain in right knee M25.561 Onset 05/23/25 Subjective Information Patient reports decreased pain and improved overall gait. Still feels she is making significant short striding with her foot progression but attributes some of that to the knee swelling. Would like to continue therapy to emphasize improved stride and maintain functional knee motion as it has not felt consistent. Assessment PT Clinical Summary Patient has seen improved ROM, strength, and transition to independent gait. She continues to lack full terminal knee extension and terminal stance of gait. Will continue to benefit from skilled therapy to address these deficits. Plan of Care Interventions Gait Training,Manual Lymph Drainage,Manual Therapy ,Neuro Re-education,Therapeutic Activities, Therapeutic Exercise PT Services Indicated Yes Treatment Frequency and 1x/week for 4 visits Duration These treatments will address the objective and functional deficits as defined above. The patient will be advanced safely and appropriately in order for the patient to progress towards his/her prior level of function. Additional exercises will be introduced and as well as a comprehensive home exercise program upon discharge, if needed, ?to ensure carryover of functional gains achieved in the clinic. This treatment plan has been reviewed and agreement upon by the patient.
--- NOTE | 2025-03-29 12:57 | PTOPDC ---
Assessment and note entered by Bacilio Bustamante, PT Evaluation Information Assessment Status Discharge - Pt Not Present Diagnosis S/P R TKA ICD-10 Condition Codes (PT) Pain in right knee M25.561 Onset 05/23/25 Subjective Information Contacted clinic stating that she would like to work on her exercises at home and decided to self discharge as she is returning to work. Requested cancellation of all of her appointments. Assessment PT Clinical Summary Patient to be discharged at this time per patient request. Please refer to last progress note as it was last progress note as it was the last active visit. Plan of Care PT Services Indicated Yes
== END 2025-03-30 07:56 | disposition home or self-care (01) ==
LOC: ANHGOSHPT 15:30
PROVIDERS: PCP Family Medicine Adolescent Medicine; Visit Provider Orthopaedic Surgery
DX: Z47.1 Aftercare following joint replacement surgery (principal); M25.561 Pain in right knee; Z96.651 Presence of right artificial knee joint
CPT/HCPCS: 97110; 97112; 97116; 97140; 97161; 97530